=== PATIENT | male | born 1945 | race Caucasian/White ===

== ENCOUNTER → 2017-01-27 | Outpatient (CLI) | payer BC ==
[~2017-01-27] MED LIST: AMIO200T4 PO; ARIP2TAB3 PO; ATOR-26 PO; BUPR300T43 PO; CLON0.5T3 PO; DESV50TA PO; GEMF600T3 PO; LEVO125T5 PO; NTRGSL/4 UT; PROP1TAB PO
== END | disposition home or self-care (01) ==
LOC: C.CPL 08:32
PROVIDERS: ATTEND Student in an Organized Health Care Education/Training Program
DX: Z79.899 Other long term (current) drug therapy (principal)

== ENCOUNTER → 2017-07-11 | Outpatient (CLI) | payer BC ==
[~2017-07-11] MED LIST changes: +LEVO125T4 PO; -LEVO125T5 PO
--- NOTE | 2017-07-11 14:44 | DIAGNOSTIC IMAGING REPORT ---
FULL BODY PET/CT CLINICAL HISTORY: Melanoma. TECHNIQUE: A PET/CT was performed from the skull vertex through the feet following intravenous injection of 10 mCi of F 18 FDG IV. The injection was performed at 11:36 AM on July 11, 2017 and imaging began at 12:28 PM on July 11, 2017. Unenhanced CT was performed for attenuation correction purposes and anatomic localization. COMPARISON STUDY: CT of the abdomen and pelvis October 02, 2016. FINDINGS: Head and neck: No suspicious FDG uptake is identified within the neck. No abnormalities are identified within the brain although sensitivity is diminished on this unenhanced CT. There is no cervical lymphadenopathy. Chest: Postoperative findings within the right upper back are noted with mild FDG uptake which is likely postsurgical. Note is made of a 3.2 x 2.2 cm oval-shaped water attenuation abnormality within the left axilla which has no FDG uptake. This is likely postsurgical. There is a mildly enlarged right inferior axillary lymph node shown on image 121 which measures 1.1 x 0.9 cm. This has moderate FDG uptake with an SUV max of 4.6. There is mild FDG uptake within multiple additional right axillary lymph nodes, including a 1.1 x 0.6 cm right axillary node shown on image 110. A few subcutaneous nodules of the left lateral mid back measure up to 1.6 x 1 cm and are shown image 112. The largest nodule has mild FDG uptake with an SUV max of 3.3. There is no mediastinal or hilar lymphadenopathy. There are no suspicious pulmonary nodules. Heart is mildly enlarged. Abdomen and Pelvis: No suspicious FDG uptake is identified within the abdomen or the pelvis. There is no abdominal or pelvic lymphadenopathy. Musculoskeletal: No suspicious skeletal uptake is identified. Lower extremities: Note is made of mild focal FDG uptake along the skin of the lateral right hindfoot shown on image 191 of 223. There may be minimal corresponding subcutaneous infiltration. No discrete mass is identified. IMPRESSION: 1. Several mildly enlarged FDG avid right axillary lymph nodes which are highly suggestive of lou spread of disease. 2. Several small subcutaneous nodules of the left lateral mid back overlying the inferior scapula which suggest tumor implants given the history of melanoma. 3. 3.2 x 2.2 cm oval-shaped water attenuation abnormality with the left axilla without FDG uptake. This is likely postsurgical but could be correlated with surgical history. 4. Mild FDG uptake overlying the skin of the lateral right midfoot. Possible minimal corresponding subcutaneous soft tissue thickening/infiltration by CT. This is likely benign but could be correlated with physical exam to exclude a skin/subcutaneous abnormality. Electronically signed by: Neil Kirby M.D. 07/11/2017 2:43 PM Dictated Date/Time: 07/11/2017 1:39 PM
== END | disposition home or self-care (01) ==
LOC: C.PET 10:01
PROVIDERS: ATTEND Internal Medicine Hematology
DX: C43.9 Malignant melanoma of skin, unspecified (principal); E87.79 Other fluid overload

== ENCOUNTER → 2017-10-26 | Outpatient (CLI) | payer BC ==
[~2017-10-26] MED LIST changes: -CLON0.5T3 PO; -GEMF600T3 PO; +GEMF600T5 PO; +KLN/5 PO; -LEVO125T4 PO; +LEVO125T5 PO
--- NOTE | 2017-10-26 14:18 | DIAGNOSTIC IMAGING REPORT ---
PET/CT FULL BODY CLINICAL HISTORY: 72 years-old Male presenting with MELANOMA restaging, extensive involvement of axillary lymph nodes recently resected, melanoma of the right upper back. TECHNIQUE: PET/CT was performed from the vertex through the feet following the intravenous administration of 12.925 mCi of F18-FDG. Blood glucose level 97 mg/dL. The injection was performed at 10:17 AM and imaging began at 11:[address] was performed for attenuation correction purposes and anatomic localization. COMPARISON: 07/11/2017.] CT DOSE (mGy.cm): The estimated cumulative dose is 2499.72. FINDINGS: Head and neck: No abnormal photopenia in the brain parenchyma to suggest metastatic disease. No FDG-avid mass in the neck. No FDG avid or enlarged lymph nodes in the neck. Chest: Persistent focal FDG avidity in the 2.1 cm soft tissue nodule located in the subcutaneous fat of the posterior left upper back. This also demonstrates FDG avidity (max SUV 8.3, previously max SUV 3.3). Previously this measured 1.6 cm. No FDG-avid lymphadenopathy or pulmonary opacities. Postsurgical changes in the right axilla with a laminar photopenic fluid collection consistent with a seroma. No residual FDG avid right axillary lymph nodes. The previously noted photopenic fluid collection in the left axilla has resolved. No axillary, supraclavicular, or mediastinal lymphadenopathy. Evaluation of the suleiman limited without intravenous contrast. Atherosclerosis of the aorta. Coronary artery calcification. Normal heart size. Trace pericardial effusion. No pleural effusion. Minimal dependent changes likely atelectasis. Calcified granuloma noted in the left upper lobe. Airways patent. Abdomen and pelvis: Normal physiologic distribution of radiotracer in the gastrointestinal and genitourinary tracts. Several photopenic hypodensities in the kidney likely simple cysts. No FDG avid lymphadenopathy or mass lesion. Surgical frontal bladder wall thickening likely indicates chronic outlet obstruction secondary to prostatomegaly. Diverticulosis of the sigmoid colon. Musculoskeletal: No FDG-avid or destructive osseous lesion. Lower extremities: Focal infiltration and mild FDG avidity in the lateral dorsal aspect of the subcutaneous tissue of the right midfoot at the site of prior FDG avidity (max SUV 3.3). FDG avidity has decreased from prior. Mild FDG avidity in the posterior aspect of the right deltoid is felt to be related to muscle activation. No commencing evidence of a focal lesion at this site. IMPRESSION: 1. Follow-up PET/CT demonstrates interval resection of right axillary lymphadenopathy with residual photopenic seroma in the right axilla. Interval increase in size and FDG avidity of the subcutaneous nodule in the left upper back, which is highly suspicious for a site of metastatic disease. 2. Mild FDG avidity associated with infiltration in the lateral dorsal subcutaneous tissue of the right midfoot. This is overall decreased from prior and is equivocal. Correlate with clinical exam. 3. No other evidence of metastatic disease in the body. Electronically signed by: Robert Murphy M.D. 10/26/2017 2:17 PM Dictated Date/Time: 10/26/2017 1:58 PM
== END | disposition home or self-care (01) ==
LOC: C.PET 09:36
PROVIDERS: ATTEND Internal Medicine Hematology
DX: C43.9 Malignant melanoma of skin, unspecified (principal); C77.3 Secondary and unspecified malignant neoplasm of axilla and upper limb lymph nodes; L76.34 Postprocedural seroma of skin and subcutaneous tissue following other procedure

== ENCOUNTER → 2017-11-02 | Outpatient (CLI) | payer BC ==
[~2017-11-02] MED LIST changes: +GADAVIST IV PRN
--- NOTE | 2017-11-02 15:19 | DIAGNOSTIC IMAGING REPORT ---
MRI OF THE BRAIN WITHOUT AND WITH IV CONTRAST CLINICAL HISTORY: Metastatic melanoma. COMPARISON STUDY: No previous studies for comparison. TECHNIQUE: MRI of the brain was performed from the vertex to the skull base utilizing various T1 and T2 weighted sequences. Following the IV administration of 8.5 mL of Gadavist contrast, additional enhanced images were obtained. FINDINGS: Sagittal T1, axial diffusion, proton density and T2 weighted axial, coronal FLAIR, and pre and post axial T1-weighted images were acquired. These were supplemented with post gadolinium coronal T1 weighted images. No intra or extra-axial mass lesions are visualized. Axial diffusion-weighted images reveal no evidence of acute or subacute infarction. There is no evidence of ventricular dilatation. Proton density T2-weighted and FLAIR images reveal minimal foci of increased T2 signal within the white matter, likely on a small vessel basis. There are no abnormal flow voids. There is a small amount of fluid within the right sphenoid sinus. There are no pathologically enhancing masses. There is a small left parieto-occipital developmental venous anomaly. IMPRESSION: 1. Small amount of fluid within the right sphenoid sinus 2. Incidental small left parietal occipital DVA 3. No acute intracranial findings. No evidence of intracranial metastasis. Electronically signed by: Sarkis Ziegler M.D. 11/02/2017 3:18 PM Dictated Date/Time: 11/02/2017 3:13 PM
== END | disposition home or self-care (01) ==
LOC: C.MRI 13:33
PROVIDERS: ATTEND Internal Medicine Hematology
DX: C43.59 Malignant melanoma of other part of trunk (principal); C77.3 Secondary and unspecified malignant neoplasm of axilla and upper limb lymph nodes

== ENCOUNTER → 2017-11-15 | Outpatient (CLI) | payer BC ==
[~2017-11-15] MED LIST changes: +CLON0.5T3 PO; -GADAVIST IV PRN; +GEMF600T3 PO; -GEMF600T5 PO; -KLN/5 PO
== END | disposition home or self-care (01) ==
LOC: C.PATH 08:25
PROVIDERS: ATTEND Internal Medicine Hematology
DX: C43.59 Malignant melanoma of other part of trunk (principal); C77.3 Secondary and unspecified malignant neoplasm of axilla and upper limb lymph nodes

== ENCOUNTER 2020-08-12 23:36 | Inpatient (IN) ==
[2020-08-13] MEDS ORDERED: SODIUM CHLORIDE 0.9% 1000ML 1,000 ML IV ONE ×3 (00:29→02:05)
--- NOTE | 2020-08-13 00:33 | Emergency Department Note ---
Impression & Plan Sepsis, Acidosis, lactic, Generalized weakness ED Provider Note Name: AUSTIN DOTSON Age: 75 Sex: M Arrives Via: Ambulance Informant: Patient ED Provider: Aleksander Gant MD Chief Complaint: Weakness Impression: Sepsis Lactic Acidosis Generalized Weakness Medical Decision Makin yr old male with extensive medical issues including radiation therapy for squamous tumor of back and mets to the brain (?melanoma?). He arrives for evaluation of generalized weakness to the point where he laid on ground for several hours at home this evening. He does not have shortness of breath, cough, no fevers, though he does feel quite warm on evaluation. With tachy went ahead assuming septic, though unclear etiology. Denies Urinary symptoms (though of note even with fluids no UOP). Mass on back may be infected thus cellulitis. There is no fluctuance appreciated on my examination to suggest underlying abscess at this time. There is no TTP abdomen. He was given IV fluids and labs sent. WBC elevated and thus once cultures obtained broad spectrum abx ordered. With return of Lactate Elevated further IV fluids ordered (30ml/Kg). He was breathing comfortably throughout this without evidence fluid overload. He will be admitted to hospitalist for further management. Prior Medical Record and Triage/Nursing Notes reviewed by Me Additional history obtained from chart Differentials:Infection, dehydration, metabolic abnormality, hypo/hyperglycemia, electrolyte disturbance, anemia, hypoxia, cardiac sources, intracerebral event, toxicologic, neurologic, as well as other pathologies. Vital Signs: reviewed and remarkable for tachy Interventions: saline lock, nss bolus 3 L IV, Zosyn IV, vanco IV Labs:Reviewed and remarkable for elevated wbc, increasing cr, elevated bun, elevated lactate Imaging:X ray results are stated below per my interpretation: Chest: 1 view: No infiltrate, no effusion, normal cardiac border. EKG:Per My Interpretation: Indication Sepsis: Sinus Tach 111 bpm, qtc 462. No Ectopy. No Ischemia. Compared to EKG 01/27/17 HR has increased Cardiac/Tele Monitoring: Cardiac Monitoring: An Order was placed for continuous cardiac monitoring. The monitor shows a rate of 110 with a sinus tach rhythm. Consults:Dr Marley Hernandez Hospitalist Plan: Disposition:Hospitalization. Condition: Fair History of Present Illness:75 yr old male arrives for evaluation of weakness. Patient notes he has been getting brain and back radiation for cancer. Over the last few days worsening weakness. Today so weak that he slid out of his chair on to the floor and couldn't get up. Notes he laid on ground for many hours until EMS arrived. Denies pain anywhere. Denies headache, neck pain, cp, sob, back pain, abdominal pain, nause,a vomiting, fevers, chills, urinary/bowel changes, leg swelling, rashes nor other symptoms. Denies hitting head. No new medications. Exertion makes worse, laying still makes better. ROS: See above HPI for pertinent positives & negatives. A total of 10 systems reviewed and were otherwise negative. Past Medical History:See Below Past Surgical History:See Below Family History:See Below Social History:See Below Home Medications:See Below Allergies:NKDA Vitals:Blood Pressure: 124/79, Pulse 120, RR 22, T 37.2C, O2 96% on RA Physical Exam: GENERAL: Patient is tired and dehydrated appearing and in minimal distress. EYES: No scleral icterus, unremarkable pupils. ENT: Mucous membranes dry, no nasal congestion. NECK: No masses appreciated, nomeningismus, trachea is midline. RESPIRATORY: No dyspnea. Clear to auscultation and equal bilaterally. No wheeze, no rhonchi. CARDIOVASCULAR: Tachy.No murmurs, rubs, gallops appreciated. GASTROINTESTINAL: Abdomen soft, non-tender, no peritonitis.Bowel sounds positive.No masses appreciated. BACK: Large warm red mass to left upper back. No midline tenderness, no CVA tenderness EXTREMITIES: Normal motion all extremities, no cyanosis, mild bilateral leg edema. NEUROLOGIC: Alert and oriented, no acute motor or sensory deficits, no focal weakness, cranial nerves grossly intact. SKIN: Bruises varying ages extremities. pressure abrasions bilateral elbows. No rash, no jaundice, no diaphoresis. PSYCH: Appropriate GCS: 15 ED Course: Times/Reassessments: Patient notes feeling much better post IV fluids and HR improving. Critical Care: I have personally spent 30 minutes of critical care time in the direct management of this patient. Sepsis uncertain etiology with lactic acidosis requiring fluid resus and broad spectrum abx management. This was a life/limb threatening event. This 30 minutes is in excess of all separately billable procedures. Aleksander Gant MD Past Med/Surg History Medical History (Updated 08/13/20 @ 05:41 by Aleksander Gant MD) Afib Depression Gastric ulcer Heart disease History of left heart catheterization (LHC) Hypertension Hypothyroidism Incarcerated right inguinal hernia LVH (left ventricular hypertrophy) MDD (major depressive disorder) Osteoarthritis Surgical History (Updated 06/26/20 @ 13:40 by Sweetie Ferreira, RN) H/O colonoscopy 2014 H/O hernia repair Late History of lithotripsy Late History of lymph node dissection of axilla 06/17/2017 - Left Axilla Non [place] Node Packet - 09/22 nodes positive for malignant melanoma 08/17/2017 - SLN Dissection History of radical excision of skin lesion 04/27/2020 - Right Upper Back - Malignant Melanoma History of surgery 1979 - Benign tumor removed from back of right knee Family History (Updated 06/26/20 @ 13:43 by Sweetie Ferreira, RN) Mother , Passed age 92 natural causes Skin cancer Father , Passed age 68 of H&N Cancer Prostate cancer, Onset Age: 58 Prostatectomy Brother No problems noted. Other Has no children Social History (Updated 06/26/20 @ 13:46 by Sweetie Ferreira, RN) Smoking Status: Former smoker Smoking End Date: 1983; Hx Alcohol Use: No Hx Substance Use: No Preferred Language: Mauritanian Communication Ability: Effective Visual Impairment: Limited Hearing Ability: Normal Production Controller Required: No Beliefs That Will Affect Care: None marital status: Single Current Living Situation: Alone Current Living Situation Comment: Lives in [facility] current occupational status: retired current occupation: retired from [employer] at [employer] How many Children do You have: 0 Feels Safe at Home: Yes Safety Concerns: Feels Safe At This Time Childhood Exposure to Second-Hand Smoke: Yes (Father ) caffeine: No during the past year weight has: remained stable Dental Care, Regularly: Yes Assistive Devices: Glasses and Walker Allergies Allergies Allergy/AdvReac Type Severity Reaction Status Date / Time No Known Allergies Allergy Unknown Verified 08/13/20 01:23 Home Meds Home Medications Medication Instructions Recorded Confirmed nitroglycerin [Nitrostat] 0.4 mg UT UD PRN #0 06/18/08 08/13/20 amiodarone 200 mg PO DAILY #0 10/02/16 08/13/20 bupropion HCl [Wellbutrin XL] 300 mg PO DAILY #0 10/02/16 08/13/20 desvenlafaxine succinate [Pristiq] 100 mg PO QAM #0 10/02/16 08/13/20 levothyroxine 125 mcg PO DAILY #0 10/02/16 08/13/20 propranolol [Inderal] 60 mg PO BID #0 10/02/16 08/13/20 aspirin 325 mg tablet 325 mg PO DAILY 06/26/20 08/13/20 fluticasone propionate 50 2 spray INTRANASAL DAILY PRN 06/26/20 08/13/20 mcg/actuation nasal spray,suspension loperamide 2 mg capsule 2 mg PO BID PRN cap 06/26/20 08/13/20 multivitamin 1 tab PO DAILY 06/26/20 08/13/20 pantoprazole 40 mg tablet,delayed 40 mg PO DAILY 06/26/20 08/13/20 release quetiapine 25 mg tablet 50 mg PO HS tab 06/26/20 08/13/20 tramadol 50 mg tablet 50 mg PO Q6H PRN 06/26/20 08/13/20 vitamin E 200 unit capsule 400 unit PO DAILY cap 06/26/20 08/13/20 dexamethasone 4 mg tablet 4 mg PO BID 08/04/20 08/13/20 clonazepam 1 mg PO HS 08/13/20 08/13/20 diclofenac sodium 4 g TOPICAL QID 08/13/20 08/13/20 Results & Data (ED) Vital Signs Vital Signs - 24 hr 08/12/20 23:36 08/12/20 23:42 08/13/20 00:00 Temperature 37.2 C Temperature Source Oral Pulse Rate 120 H 120 H 114 H Pulse Rate from SpO2 Sensor 119 H 114 H Pulse Rhythm Regular Respiratory Rate 22 19 19 Respiratory Effort / Characteristics Non-Labored Spontaneous Labored Respiratory Depth Normal Blood Pressure 124/79 124/79 102/60 Blood Pressure Mean 94 89 73 Pulse Oximetry 96 96 96 Oxygen Delivery Method Room Air Sepsis Recent Fever Within 48 Hours No Sepsis New/Unexplained Change in Mental Status No Sepsis Action Taken by Nursing Physician Notified 08/13/20 00:30 08/13/20 01:30 08/13/20 02:00 Temperature Temperature Source Pulse Rate 108 H 109 H 102 H Pulse Rate from SpO2 Sensor 101 H Pulse Rhythm Respiratory Rate 17 17 19 Respiratory Effort / Characteristics Respiratory Depth Blood Pressure 115/65 137/79 125/73 Blood Pressure Mean 75 104 91 Pulse Oximetry 95 Oxygen Delivery Method Sepsis Recent Fever Within 48 Hours Sepsis New/Unexplained Change in Mental Status Sepsis Action Taken by Nursing 08/13/20 02:30 08/13/20 03:00 Temperature Temperature Source Pulse Rate 100 H 97 H Pulse Rate from SpO2 Sensor 126 H 97 H Pulse Rhythm Respiratory Rate 18 18 Respiratory Effort / Characteristics Respiratory Depth Blood Pressure 133/66 140/72 Blood Pressure Mean 80 95 Pulse Oximetry 94 97 Oxygen Delivery Method Room Air Room Air Sepsis Recent Fever Within 48 Hours Sepsis New/Unexplained Change in Mental Status Sepsis Action Taken by Nursing Laboratory Data Result diagrams: 08/13/20 00:28 08/13/20 00:28 Lab Results 08/13/20 08/13/20 08/13/20 Range/Units 00:28 00:28 00:28 WBC 20.43 H (4.8-10.8) K/uL RBC 3.94 L (4.7-6.1) M/uL Hgb 12.5 L (14.0-18.0) g/dL Hct 37.9 L (42-52) % MCV 96.2 (80-100) fL MCH 31.7 (25-34) pg MCHC 33.0 (32-36) g/dL RDW Std Deviation 48.0 H (36.4-46.3) fL RDW Coeff of Cal 13.7 (11.5-14.5) % Plt Count 74 L (130-400) K/uL MPV 9.4 (7.4-10.4) fL Immature Gran % (Auto) 2.2 % Neut % (Auto) 84.6 % Lymph % (Auto) 9.3 % Terrell % (Auto) 3.8 % Eos % (Auto) 0.0 % Baso % (Auto) 0.1 % Neut # (Auto) 17.28 H (1.4-6.5) K/uL Lymph # (Auto) 1.90 (1.2-3.4) K/uL Terrell # (Auto) 0.77 H (0.11-0.59) K/uL Eos # (Auto) 0.01 (0-0.5) K/uL Baso # (Auto) 0.02 (0-0.2) K/uL Immature Gran # (Auto) 0.45 H (0.00-0.02) K/uL RBC Morphology Unremarkable PT 11.4 (9.0-12.0) Seconds INR 1.1 (0.9-1.1) APTT < 20.0 L (21.0-31.0) Seconds PTT Ratio 0.7 Sodium 145 (136-145) mmol/L Potassium 3.8 (3.5-5.1) mmol/L Chloride 110 H (98-107) mmol/L Carbon Dioxide 23 (21-32) mmol/L Anion Gap 12.0 H (3-11) BUN 44 H (7-18) mg/dl Creatinine 1.78 H (0.6-1.4) mg/dl Est Cr Clr Drug Dosing 43.6 ml/min Est GFR ( Amer) 42.0 Est GFR (Non-Af Amer) 36.2 BUN/Creatinine Ratio 24.9 H (10-20) Glucose 175 H (70-99) mg/dl Lactate (0.4-2.0) mmol/L Calcium 8.5 (8.5-10.1) mg/dl Magnesium 2.2 (1.8-2.4) mg/dl Total Bilirubin 0.6 (0.2-1) mg/dl Direct Bilirubin 0.1 (0-0.2) mg/dl AST 30 (15-37) U/L ALT 68 (12-78) U/L Alkaline Phosphatase 72 (45-117) U/L Total Creatine Kinase 223 (39-308) U/L Troponin I 0.032 (0-0.045) ng/ml Total Protein 5.5 L (6.4-8.2) gm/dl Albumin 2.6 L (3.4-5.0) gm/dl Lipase 116 (73-393) U/L TSH 0.044 L (0.300-4.500) uIu/ml COVID-19 Eval Order COVID-19 PCR (Negative) 08/13/20 08/13/20 08/13/20 Range/Units 01:28 02:20 02:20 WBC (4.8-10.8) K/uL RBC (4.7-6.1) M/uL Hgb (14.0-18.0) g/dL Hct (42-52) % MCV (80-100) fL MCH (25-34) pg MCHC (32-36) g/dL RDW Std Deviation (36.4-46.3) fL RDW Coeff of Cal (11.5-14.5) % Plt Count (130-400) K/uL MPV (7.4-10.4) fL Immature Gran % (Auto) % Neut % (Auto) % Lymph % (Auto) % Terrell % (Auto) % Eos % (Auto) % Baso % (Auto) % Neut # (Auto) (1.4-6.5) K/uL Lymph # (Auto) (1.2-3.4) K/uL Terrell # (Auto) (0.11-0.59) K/uL Eos # (Auto) (0-0.5) K/uL Baso # (Auto) (0-0.2) K/uL Immature Gran # (Auto) (0.00-0.02) K/uL RBC Morphology PT (9.0-12.0) Seconds INR (0.9-1.1) APTT (21.0-31.0) Seconds PTT Ratio Sodium (136-145) mmol/L Potassium (3.5-5.1) mmol/L Chloride (98-107) mmol/L Carbon Dioxide (21-32) mmol/L Anion Gap (3-11) BUN (7-18) mg/dl Creatinine (0.6-1.4) mg/dl Est Cr Clr Drug Dosing ml/min Est GFR ( Amer) Est GFR (Non-Af Amer) BUN/Creatinine Ratio (10-20) Glucose (70-99) mg/dl Lactate 4.9 H* (0.4-2.0) mmol/L Calcium (8.5-10.1) mg/dl Magnesium (1.8-2.4) mg/dl Total Bilirubin (0.2-1) mg/dl Direct Bilirubin (0-0.2) mg/dl AST (15-37) U/L ALT (12-78) U/L Alkaline Phosphatase (45-117) U/L Total Creatine Kinase (39-308) U/L Troponin I (0-0.045) ng/ml Total Protein (6.4-8.2) gm/dl Albumin (3.4-5.0) gm/dl Lipase (73-393) U/L TSH (0.300-4.500) uIu/ml COVID-19 Eval Order Covid19 Done at [facility] COVID-19 PCR NEGATIVE (Negative) Administered Medications Discontinued Medications Sodium Chloride (Nss 1000ml) 1,000 mls @ 999 mls/hr IV .Q1H1M ONE Stop: 08/13/20 01:29 Last Infusion: 08/13/20 03:14 Dose: 0 mls/hr Documented by: [id number] Admin: 08/13/20 01:13 Dose: 999 mls/hr Documented by: [id number] Piperacillin Sod/Tazobactam Sod (Zosyn) 4.5 gm in 120 mls @ 240 mls/hr IV NOW ONE Stop: 08/13/20 02:07 Last Infusion: 08/13/20 02:55 Dose: 0 mls/hr Documented by: [id number] Admin: 08/13/20 02:25 Dose: 240 mls/hr Documented by: [id number] Vancomycin HCl 2,000 mg/ (Sodium Chloride) 540 mls @ 200 mls/hr IV NOW ONE Stop: 08/13/20 04:19 Last Admin: 08/13/20 02:59 Dose: 200 mls/hr Documented by: [id number] Sodium Chloride (Nss 1000ml) 1,000 mls @ 999 mls/hr IV .Q1H1M ONE Stop: 08/13/20 03:05 Last Infusion: 08/13/20 03:26 Dose: 0 mls/hr Documented by: [id number] Admin: 08/13/20 02:31 Dose: 999 mls/hr Documented by: [id number] Sodium Chloride (Nss 1000ml) 1,000 mls @ 999 mls/hr IV .Q1H1M ONE Stop: 08/13/20 03:05 Last Admin: 08/13/20 04:28 Dose: 999 mls/hr Documented by: [id number] Lactated Ringer's (Lr) 1,000 mls @ 500 mls/hr IV .Q2H ONE Stop: 08/13/20 04:05 Last Admin: 08/13/20 02:43 Dose: Not Given Documented by: [id number] Miscellaneous Information (Piperacill/Tazobac Consult Active) 1 ea N/A UD PRN PRN Reason: Consult Stop: 09/12/20 01:37 Last Admin: 08/13/20 03:19 Dose: 1 ea Documented by: [id number] Miscellaneous Information (Vancomycin Consult Active) 1 ea N/A UD PRN PRN Reason: Consult Stop: 09/12/20 01:37 Last Admin: 08/13/20 03:19 Dose: 1 ea Documented by: [id number] Discharge Plan Visit Data Chief Complaint: Weakness Stated Complaint: WEAKNESS ED Provider: Aleksander Gant Discharge Problem: Sepsis, Acidosis, lactic, Generalized weakness Patient Disposition: Admitted As Inpatient Discharge Instructions Interventions: ED Discharge Assessment Last Done: 08/13/20 04:18 Discharge Problem: Sepsis Qualifiers: Sepsis type: sepsis due to unspecified organism Sepsis acute organ dysfunction status: unspecified Qualified Code(s): A41.9 - Sepsis, unspecified organism
[2020-08-13 00:50] LABS: INR 1.1 (0.9-1.1); Prothrombin Time 11.4 Seconds (9.0-12.0)
[2020-08-13 00:57] LABS: Albumin Level 2.6 gm/dl (3.4-5.0); BUN Creatinine Ratio 24.9 (10-20); Bilirubin Direct 0.1 mg/dl (0-0.2); Calcium 8.5 mg/dl (8.5-10.1); Creatinine Clr Calc Pharmacy 43.6 ml/min; Est GFR (Non-African American) 36.2; Magnesium 2.2 mg/dl (1.8-2.4); Potassium 3.8 mmol/L (3.5-5.1)
[2020-08-13 01:00] LABS: Bilirubin,Total 0.6 mg/dl (0.2-1); Total Protein 5.5 gm/dl (6.4-8.2); Troponin I 0.032 ng/ml (0-0.045)
[2020-08-13 01:13] LABS: Partial Thromboplastin Ratio 0.7; Partial Thromboplastin Time < 20.0 Seconds (21.0-31.0)
[2020-08-13 01:22] LABS: Basophils # (auto) 0.02 K/uL (0-0.2); Basophils % (auto) 0.1 %; Eosinophils # (auto) 0.01 K/uL (0-0.5); Hematocrit (blood only) 37.9 % (42-52); Hemoglobin 12.5 g/dL (14.0-18.0); Immature Granulocytes # (auto) 0.45 K/uL (0.00-0.02); Immature Granulocytes % (auto) 2.2 %; Lymphocytes % (auto) 9.3 %; Mean Corpuscular Hemoglobin 31.7 pg (25-34); Mean Corpuscular Volume 96.2 fL (80-100); Mean Platelet Volume 9.4 fL (7.4-10.4); Monocytes # (auto) 0.77 K/uL (0.11-0.59); Monocytes % (auto) 3.8 %; Neutrophils # (auto) 17.28 K/uL (1.4-6.5); Neutrophils % (auto) 84.6 %; Platelet Count 74 K/uL (130-400); RBC Morphology Unremarkable; RDW Coefficient of Variation 13.7 % (11.5-14.5); Red Blood Count 3.94 M/uL (4.7-6.1); White Blood Count 20.43 K/uL (4.8-10.8)
[2020-08-13] MEDS ORDERED: PIPERACILL/TAZOBAC CONSULT ACTIVE PRN (01:38)
[2020-08-13] MEDS ORDERED: PIPERACILLIN/TAZOBACTAM 4.5 GM/120 ML BAG IV ONE (01:38)
[2020-08-13] MEDS ORDERED: VANCOMYCIN CONSULT ACTIVE PRN (01:38)
[2020-08-13] MEDS ORDERED: VANCOMYCIN HCL 2,000 MG in SODIUM CHLORIDE 0.9% 500 ML IV ONE (01:38)
[2020-08-13] MEDS ORDERED: LACTATED RINGER'S 1,000 ML IV ONE ×3 (02:06→06:44)
[2020-08-13 02:44] LABS: Thyroid Stimulating Hormone 0.044 uIu/ml (0.300-4.500)
--- NOTE | 2020-08-13 03:52 | History & Physical Report ---
Date of Service August 13, 2020 Assessment & Plan (1) Sepsis: Severe sepsis SIRS plus lactic acid elevation plus ARF Immunocompromised patient, hx brain mets status post radiation ongoing steroid therapy Rule out UTI as source recurrent metastatic melanoma status post surgery Patient not interested in treatment options as per recent conversation with [facility] oncologist. May consider hospice as per documentation. New onset anemia, thrombocytopenia PAF, patient NSR nonobstructive CAD as per records hypertension, slight elevated hypothyroidism, TSH noted to be low Steroid-induced hyperglycemia rule out DM RLE swelling rule out DVT mood disorder, at baseline past tobacco abuse Medical telemetry Cultures, Daptomycin, Cefepime for now for sepsis unknown source IVF, follow lactic acid Check UA (patient refusing straight catheterization to obtain specimen) Hold aspirin until stool FOBT results known given new onset anemia (Patient refusing blood product transfusion for now.) LE venous Dopplers rule out DVT Check other TFTs Check hemoglobin A1c DVT prophylaxis. SCDs Re: Thrombocytopenia DNR Text document was generated using [employer] voice recognition software. It may contain grammatical or spelling errors. Kindly contact undersigned for clarification of any documentation item in question. History of Present Illness Chief Complaint: Weakness, fever, chills Primary Care Provider: Robert Palm MD History obtained from patient and records. Medical history significant for recurrent metastatic melanoma status post surgery, brain mets status post radiation ongoing steroid therap, PAF, nonobstructive CAD as per records, hypertension, hypothyroidism, mood disorder, past tobacco abuse. Worsening weakness the last few days with fever and chills. Right leg more swollen than usual. No chest pain, no S OB, no unusual headache symptoms. Patient denies abdominal pain, diarrhea, dysuria symptoms. Patient was so weak at home that he slid out of his chair therefore he could not get up. At the ER, patient given Vancomycin and Zosyn for sepsis. Medical History as above Surgical History : Lymph node biopsy, urologic procedures, leg bone lesion removal, hernia repair, skin cancer surgery Family History : BPH Personal/Social history : Past tobacco abuse, no EtOH intake, retired [employer] employee Allergies Allergy/AdvReac Type Severity Reaction Status Date / Time No Known Allergies Allergy Unknown Verified 08/13/20 01:23 Home Medications Home Medications Medication Instructions Recorded Confirmed Type nitroglycerin [Nitrostat] 0.4 mg OH UD PRN #0 06/18/08 08/13/20 History amiodarone 200 mg PO DAILY #0 10/02/16 08/13/20 History bupropion HCl [Wellbutrin XL] 300 mg PO DAILY #0 10/02/16 08/13/20 History desvenlafaxine succinate [Pristiq] 100 mg PO QAM #0 10/02/16 08/13/20 History levothyroxine 125 mcg PO DAILY #0 10/02/16 08/13/20 History propranolol [Inderal] 60 mg PO BID #0 10/02/16 08/13/20 History aspirin 325 mg tablet 325 mg PO DAILY 06/26/20 08/13/20 History fluticasone propionate 50 2 spray INTRANASAL DAILY PRN 06/26/20 08/13/20 History mcg/actuation nasal spray,suspension loperamide 2 mg capsule 2 mg PO BID PRN cap 06/26/20 08/13/20 History multivitamin 1 tab PO DAILY 06/26/20 08/13/20 History pantoprazole 40 mg tablet,delayed 40 mg PO DAILY 06/26/20 08/13/20 History release quetiapine 25 mg tablet 50 mg PO HS tab 06/26/20 08/13/20 History tramadol 50 mg tablet 50 mg PO Q6H PRN 06/26/20 08/13/20 History vitamin E 200 unit capsule 400 unit PO DAILY cap 06/26/20 08/13/20 History dexamethasone 4 mg tablet 4 mg PO BID 08/04/20 08/13/20 History clonazepam 1 mg PO HS 08/13/20 08/13/20 History diclofenac sodium 4 g TOPICAL QID 08/13/20 08/13/20 History Past Med/Surg History Medical History (Updated 08/13/20 @ 09:18 by Jaya Hughes MD) Afib Depression Gastric ulcer Heart disease History of left heart catheterization (LHC) Hypertension Hypothyroidism Incarcerated right inguinal hernia LVH (left ventricular hypertrophy) MDD (major depressive disorder) Osteoarthritis Surgical History (Updated 06/26/20 @ 13:40 by Sweetie Ferreira RN) H/O colonoscopy 2014 H/O hernia repair Late History of lithotripsy Late History of lymph node dissection of axilla 06/17/2017 - Left Axilla Non [place] Node Packet - 09/22 nodes positive for malignant melanoma 08/17/2017 - SLN Dissection History of radical excision of skin lesion 04/27/2020 - Right Upper Back - Malignant Melanoma History of surgery 1979 - Benign tumor removed from back of right knee Family History (Updated 06/26/20 @ 13:43 by Sweetie Ferreira RN) Mother , Passed age 92 natural causes Skin cancer Father , Passed age 68 of H&N Cancer Prostate cancer, Onset Age: 58 Prostatectomy Brother No problems noted. Other Has no children Social History (Updated 06/26/20 @ 13:46 by Sweetie Ferreira RN) Smoking Status: Former smoker Smoking End Date: 1983; Hx Alcohol Use: No Hx Substance Use: No Preferred Language: Mauritanian Communication Ability: Effective Visual Impairment: Limited Hearing Ability: Normal [employer] Required: No Beliefs That Will Affect Care: None marital status: Single Current Living Situation: Alone Current Living Situation Comment: Lives in shelter at [facility] current occupational status: retired current occupation: retired from [employer] at [employer] How many Children do You have: 0 Feels Safe at Home: Yes Safety Concerns: Feels Safe At This Time Childhood Exposure to Second-Hand Smoke: Yes (Father ) caffeine: No during the past year weight has: remained stable Dental Care, Regularly: Yes Assistive Devices: Glasses and Walker Review of Systems Review of Systems: As per HPI, all 10 systems reviewed, all other ROS negative Physical Exam Physical Exam: GENERAL: uncomfortable, obese, no respiratory distress SKIN: Pallor, warm HEENT: Alopecia, pale palpebral conjunctivae, no ptosis, dry buccal mucosa NECK : Supple, short neck, no tenderness CHEST : Decreased breath sounds, no tenderness HEART : Tachycardic, no obvious murmurs ABDOMEN: Some distention, nontender EXTREMITIES : RLE swelling with minimal tenderness, no other conspicuous deformities noted NEUROLOGIC : Coherent, no facial asymmetry, MMTs BUE 4/5, BLE 2/5 Results & Data Results & Data ([facility]) Vital Signs (Past 12 Hours) Vital Signs Temp Pulse Resp BP Pulse Ox 08/13/20 03:00 97 H 18 140/72 97 08/13/20 02:30 100 H 18 133/66 94 08/13/20 02:00 102 H 19 125/73 95 08/13/20 01:30 109 H 17 137/79 08/13/20 00:30 108 H 17 115/65 08/13/20 00:00 114 H 19 102/60 96 08/12/20 23:42 120 H 19 124/79 96 08/12/20 23:36 37.2 C 120 H 22 124/79 96 Laboratory Results Laboratory Results WBC 20.43 K/uL (4.8-10.8) H 08/13/20 00:28 RBC 3.94 M/uL (4.7-6.1) L 08/13/20 00:28 Hgb 12.5 g/dL (14.0-18.0) L 08/13/20 00:28 Hct 37.9 % (42-52) L 08/13/20 00:28 MCV 96.2 fL (80-100) 08/13/20 00:28 MCH 31.7 pg (25-34) 08/13/20 00: MCHC 33.0 g/dL (32-36) 08/13/20 00: RDW Std Deviation 48.0 fL (36.4-46.3) H 08/13/20 00: RDW Coeff of Cal 13.7 % (11.5-14.5) 08/13/20 00: Plt Count 74 K/uL (130-400) L 08/13/20 00:28 MPV 9.4 fL (7.4-10.4) 08/13/20 00:28 Immature Gran % (Auto) 2.2 % 08/13/20 00:28 Neut % (Auto) 84.6 % 08/13/20 00:28 Lymph % (Auto) 9.3 % 08/13/20 00:28 [place] % (Auto) 3.8 % 08/13/20 00:28 Eos % (Auto) 0.0 % 08/13/20 00:28 Baso % (Auto) 0.1 % 08/13/20 00:28 Neut # (Auto) 17.28 K/uL (1.4-6.5) H 08/13/20 00:28 Lymph # (Auto) 1.90 K/uL (1.2-3.4) 08/13/20 00:28 [place] # (Auto) 0.77 K/uL (0.11-0.59) H 08/13/20 00:28 Eos # (Auto) 0.01 K/uL (0-0.5) 08/13/20 00: Baso # (Auto) 0.02 K/uL (0-0.2) 08/13/20: Immature Gran # (Auto) 0.45 K/uL (0.00-0.02) H 08/13/20: RBC Morphology Unremarkable 08/13/20: PT 11.4 Seconds (9.0-12.0) 08/13/20: INR 1.1 (0.9-1.1) 08/13/20: APTT < 20.0 Seconds (21.0-31.0) L 08/13/20 PTT Ratio 0.7 08/13/20: Sodium 145 mmol/L (136-145) 08/13/20: Potassium 3.8 mmol/L (3.5-5.1) 08/13/20: Chloride 110 mmol/L (98-107) H 08/13/20: Carbon Dioxide 23 mmol/L (21-32) 08/13/20: Anion Gap 12.0 (3-11) H 08/13/20: BUN 44 mg/dl (7-18) H 08/13/20: Creatinine 1.78 mg/dl (0.6-1.4) H 08/13/20: Est Cr Clr Drug Dosing 43.6 ml/min 08/13/20: Est GFR ( Amer) 42.0 08/13/20: Est GFR (Non-Af Amer) 36.2 08/13/20: BUN/Creatinine Ratio 24.9 (10-20) H 08/13/20: Glucose 175 mg/dl (70-99) H 08/13/20: Lactate 4.9 mmol/L (0.4-2.0) H* 08/13/20 01: Calcium 8.5 mg/dl (8.5-10.1) 08/13/20: Magnesium 2.2 mg/dl (1.8-2.4) 08/13/20: Total Bilirubin 0.6 mg/dl (0.2-1) 08/13/20 00:28 Direct Bilirubin 0.1 mg/dl (0-0.2) 08/13/20 00:28 AST 30 U/L (15-37) 08/13/20 00:28 ALT 68 U/L (12-78) 08/13/20 00:28 Alkaline Phosphatase 72 U/L (45-117) 08/13/20 00:28 Total Creatine Kinase 223 U/L (39-308) 08/13/20 00:28 Troponin I 0.032 ng/ml (0-0.045) 08/13/20 00:28 Total Protein 5.5 gm/dl (6.4-8.2) L 08/13/20:28 Albumin 2.6 gm/dl (3.4-5.0) L 08/13/20 00: Lipase 116 U/L (73-393) 08/13/20 00:28 TSH 0.044 uIu/ml (0.300-4.500) L 08/13/20 00:28 COVID-19 Eval Order Covid19 Done [address] [facility] 08/13/20 02:20 COVID-19 PCR NEGATIVE (Negative) 08/13/20 02:[address] head initial read: Abnormal ringlike lesion left frontotemporal region measuring 17 x 19 mm surrounded by mild vasogenic edema. Similar to prior MRI May 2020. Lesion not significant change in size. No midline shift. No evidence of hemorrhage. Chest x-ray as per my interpretation cardiomegaly EKG as per my interpretation : Rate 110, sinus tachycardia, LAD, LAD, LAFB, LVH, PVCs Code Status & VTE Plan VTE Prophylaxis Plan VTE Prophylaxis will be ordered: Yes (1) Sepsis Sepsis acute organ dysfunction status: unspecified Sepsis type: sepsis due to unspecified organism Qualified Code(s): A41.9 - Sepsis, unspecified organism
[2020-08-13] MEDS ORDERED: PROMETHAZINE HCL 12.5 MG in SODIUM CHLORIDE 0.9% 50 ML IV PRN (05:22)
[2020-08-13] MEDS ORDERED: FLUTICASONE PROPIONATE NA SPR 16 GM BTL PRN (05:22)
[2020-08-13] MEDS ORDERED: ACETAMINOPHEN 325 MG TAB PO PRN ×2 (05:22→08:51)
[2020-08-13] MEDS ORDERED: AUGMENTIN~PHARMACY CONSULT IN PROGRESS PRN (05:26)
[2020-08-13] MEDS ORDERED: CEFEPIME CONSULT ACTIVE PRN (05:31)
[2020-08-13] MEDS ORDERED: LACTATED RINGER'S 1,000 ML IV SCH (05:45)
[2020-08-13 05:55] LABS: Hematocrit (blood only) 33.2 % (42-52); Hemoglobin 10.6 g/dL (14.0-18.0); Mean Corpuscular Hemoglobin 30.9 pg (25-34); Mean Corpuscular Hgb Conc 31.9 g/dL (32-36); Mean Corpuscular Volume 96.8 fL (80-100); RDW Coefficient of Variation 14.1 % (11.5-14.5); RDW Standard Deviation 48.7 fL (36.4-46.3); Red Blood Count 3.43 M/uL (4.7-6.1); White Blood Count 15.63 K/uL (4.8-10.8)
[2020-08-13 06:27] LABS: Mean Platelet Volume 8.8 fL (7.4-10.4); Platelet Count 62 K/uL (130-400)
[2020-08-13 06:28] LABS: Basophils # (auto) 0.01 K/uL (0-0.2); Basophils % (auto) 0.1 %; Eosinophils # (auto) 0.01 K/uL (0-0.5); Eosinophils % (auto) 0.1 %; Immature Granulocytes % (auto) 1.9 %; Lymphocytes # (auto) 1.41 K/uL (1.2-3.4); Monocytes % (auto) 5.1 %; Neutrophils % (auto) 83.8 %; RBC Morphology Unremarkable
[2020-08-13] MEDS: CEFEPIME 2,000 MG in SYRINGE 0 ML IV SCH ×2 (06:28→18:06)
[2020-08-13 06:30] LABS: BUN Creatinine Ratio 31.5 (10-20); Calcium 7.4 mg/dl (8.5-10.1); Creatinine Clr Calc Pharmacy 63.7 ml/min; Est GFR (African American) 70.5; Est GFR (Non-African American) 60.8
[2020-08-13] MEDS ORDERED: LEVOTHYROXINE SODIUM 125 MCG TABLET PO SCH (06:30)
[2020-08-13] MEDS: DAPTOmycin 475 MG in SYRINGE 0 ML IV SCH (06:32)
--- NOTE | 2020-08-13 07:08 | Ultrasound Report ---
ULTRASOUND RIGHT LOWER EXTREMITY VENOUS CLINICAL HISTORY: Right leg swelling. COMPARISON STUDY: No priors. TECHNIQUE: Real-time, grayscale, and color Doppler sonography of the deep veins of the right lower ex tremity was performed from the inguinal crease to the calf. Compression and augmentation were utilize d. FINDINGS: There is nonocclusive deep venous thrombosis identified in the right lower extremity extend ing from the distal superficial femoral vein into both paired popliteal veins and into the calf vesse ls. This involves the peroneal, anterior tibial, and posterior tibial veins. The common femoral vein as well as the proximal and mid portions of the superficial femoral vein are patent and normally comp ressible. The greater saphenous vein and the profunda femoris vein at the junction with the common fe moral vein are clear. IMPRESSION: Nonocclusive deep venous thrombosis is seen in the right lower extremity extending from t he distal superficial femoral vein to the calf. ACT 112: Negative or not required by law. Electronically signed by: Zhang Garcia M.D. 08/13/2020 7:07 AM
--- NOTE | 2020-08-13 07:30 | CT Scan Report ---
CT SCAN OF THE BRAIN WITHOUT IV CONTRAST CLINICAL HISTORY: Generalized weakness. Known metastatic melanoma. COMPARISON STUDY: MRI of the brain dated 06/24/2020. PET/CT dated 06/23/2020. Radiation treatment plan ed[place] CT dated 06/27/2020. TECHNIQUE: Unenhanced axial CT scan of the brain is performed from the vertex to the skull base. A do se lowering technique was utilized adhering to the principles of ALARA. CT DOSE: 691.05 mGy.cm FINDINGS: Brain parenchyma: There are age-related involutional changes noting mild subcortical and periventric ular microangiopathic change. There is a 2.0 cm lesion with surrounding edema identified in the poste rior left frontotemporal region on image #20. This was also seen on the 06/27/[address] and demonstrates peripheral hyperdensity. This has not significantly changed from that t gabby. No midline shift is identified. No new lesion is seen. No acute hemorrhage is identified. There is no evidence of acute territorial ischemia by CT criteria. No extra-axial fluid collection is seen. Ventricles, sulci, cisterns: Prominent secondary to involutional change. Intracranial vasculature: There is atherosclerotic calcification of the cavernous carotid arteries. Calvarium: Unremarkable. Sinuses and mastoids: Trace mucosal thickening is noted in the ethmoid sinuses. The remaining paranas al sinuses are clear. The mastoid air cells are well pneumatized. Orbits: The bony orbits are grossly intact. IMPRESSION: 1. Again seen is a 2 cm peripherally hyperdense and possibly hemorrhagic lesion in the left frontotem poral region with surrounding edema. This has not significantly changed in appearance from the [address] and is consistent with known metastatic disease. 2. No new lesion is identified. 3. There is no evidence of acute hemorrhage. There is no midline shift or evidence of acute territori al ischemia by CT criteria. ACT 112: Negative or not required by law. Electronically signed by: Zhang Garcia M.D. 08/13/2020 7:29 AM
[2020-08-13 07:42] LABS: Appearance Urine Cloudy (Clear); Bacteria Urine Automated Negative (Negative); Bilirubin Urine Negative (Negative); Blood Urine 1+ (Negative); Color Urine Yellow; Epithelial Cell Urine Auto 20-30 /lpf (0-5); Glucose Urine UA Negative (Negative); Ketones Urine Negative (Negative); Leukocyte Esterase Urine Negative (Negative); Nitrite Urine Negative (Negative); Protein Urine Negative (Negative); Specific Gravity Urine 1.022 (1.000-1.030); Urobilinogen Urine Negative (Negative)
[2020-08-13 07:59] LABS: Estimated Average Glucose 148 mg/dl; Hemoglobin A1C 6.8 % (4.5-5.6)
--- NOTE | 2020-08-13 08:05 | XRay Report ---
SINGLE VIEW CHEST CLINICAL HISTORY: Generalized weakness. FINDINGS: An AP, portable, upright chest radiograph is compared to study dated 09/24/2010 and correla jose with PET/CT dated 06/23/2020. The examination is degraded by portable technique and patient rotati on. The heart is mildly enlarged noting atherosclerotic calcification of the thoracic aorta. The pu lmonary vasculature is noncongested. Chronic interstitial thickening is similar to previous. There is bibasilar scarring/atelectasis. No airspace consolidation or large pleural effusion is identified. N o pneumothorax is seen. The skeletal structures are osteopenic. The bony thorax is grossly intact. Cote rgical clips are noted in the right axilla. IMPRESSION: Cardiomegaly with no acute cardiopulmonary abnormality. ACT 112: Negative or not required by law. Electronically signed by: Zhang Garcia M.D. 08/13/2020 8:03 AM
[2020-08-13 08:06] LABS: Uric Acid Crystals Urine Present (None Prsent)
--- NOTE | 2020-08-13 08:28 | Hospitalist Progress Note ---
Date of Service August 13, 2020 Assessment & Plan (1) Metastatic melanoma: -as per Dr. Rodriguez oncology notes on 06/25/2020 visit: "75-year-old male with history of melanoma was diagnosed in 03/2017 when he was found to have mass on the right upper back. He underwent resection. Subsequently he underwent a right axillary lymph node dissection and 09/22 lymph nodes were positive for metastatic disease. Lymph node from the left axillary area were negative. He had a stage T4b N3 disease and B Jorge was positive. Patient was seen by Dr. Feldman at that time and options of treatment were discussed but patient refused. Now he present with new mass on the left upper back shoulder for last few months which is increasing in size. Patient is also complaining of headache for last few weeks. Physical examination is unremarkable except that there is a 7 cm mass in the left upper back. He had follow-up PET scan done which shows lesion in the left shoulder and also there is a lesion in the left frontotemporal area. MRI was also done which confirmed the finding." -Dr. Rodriguez comments in 06/25/2020 that patient to be on Decadron 4 mg twice a day for brain edema and radiation to brain, and possibility of immunotherapy in the future -hospitalist attempting to contact patient's oncologist Dr. Rodriguez in regards to patient's brain cancer, thrombocytopenia, and new ultrasound finding on this admission of "Nonocclusive deep venous thrombosis is seen in the right lower extremity extending from the distal superficial femoral vein to the calf." -Code Status is DNR/DNI, patient declines any blood transfusion, he allows for medications including antibiotics -consult palliative care, patient lives alone at home and his next of kin is brother Jamil Chirinos [phone] - consult case management (2) Brain cancer: -Dr. Rodriguez comments in 06/25/2020 that patient to be on Decadron 4 mg twice a day for brain edema and radiation to brain-Dr. Rodriguez comments in 06/25/2020 that patient to be on Decadron 4 mg twice a day for brain edema and radiation to brain -patient reports he completed treatment for radiation to the brain with lasts session on Tuesday08/08/2020 (3) Deep vein thrombosis (DVT) of right lower extremity: -patient reports that since brain radiation treatment, he has been less active -he reports that he noted more right leg swelling prior to admission -ultrasound finding on this admission of "Nonocclusive deep venous thrombosis is seen in the right lower extremity extending from the distal superficial femoral vein to the calf." (4) Thrombocytopenia: -outpatient 06/16/20 labs of Hgb 14.7 and platelets 267K -however patient has low platelets on admission of 74K to 62K -he was discussed option of being on blood thinner but he also declined wanting any blood transfusion -will discuss with patient's oncologist Dr. Rodriguez on systemic anticoagulation, will temporarily give heparin 5000 units subcutaneous q8 hours for now while awaiting oncology discussion and will avoid home dose aspirin 325 mg and diclofenac (5) Anemia: -admission Hgb 12.5 and followup Hgb 10.6 -monitor the blood counts, patient declines blood transfusion consent -continue home dose pantoprazole (6) Leukocytosis: Sepsis -admission WBC of 15K, possibly from recent steroids for brain cancer versus assumed infection -as per ED and admitting hospitalist notes that patient's elevated WBC, tachycardia on ED presentation, and lactic acid level of 4.9, with acute kidney injury may reflect sepsis and started on broad spectrum antibiotics in context of cancer and being on steroids -lactic acid resolved with IV fluids as the repeat was 1.5, currently on IV cefepime and IV daptomycin, continue antibiotics and follow blood cultures (7) NIRU (acute kidney injury): -admission creatinine of 1.78 and after IV fluids is 1.16 (8) Abnormal thyroid function test: -outpatient records 12/28/2018 showed normal TSH of 0.89 -admission TSH very low of 0.044, and low total T3 of 0.47, but normal free T4 of 1.21 -these abnormal thyroid labs may reflect overall illness or too much levothyroxine at home, cut back on home dose levothyroxine from 125 mcg daily to 75 mcg daily (9) Elevated hemoglobin A1c: -admission HbA1c of 6.8 -no prior documented history of diabetes mellitus -since patient recently on steroids, will give sliding scale insulin while inp atient based on blood sugars (10) PAF (paroxysmal atrial fibrillation): Coronary Artery Disease -currently in sinus rhythm -will continue home dose amiodarone -aspirin on hold for now because of thrombocytopenia (11) Depression: -continue home dose buproprion, quetiapine (12) Tremor: -continue home dose propanolol Admission and Anticipated Discharge Date Admission Date: August 13, 2020 Subjective Patient seen and examined at bedside. Awake and alert. not in distress. patient cannot pull himself up to sit upright. no nausea. no headache. no dizziness. no abdomen pain. no chest pain. no shortness of breath, no vomiting. discussed with him patient's previous health issues and new imaging findings of the DVT of right leg. patient declines blood transfusion if needed. he is agreeable for hospitalist to contact his oncology/hematology clinic Dr. Rodriguez Review of Systems Review of Systems: All systems reviewed & are unremarkable except as noted in Subjective Physical Exam Constitutional: cooperative Eyes: PERRL, conjunctivae normal, anicteric sclerae EOM intact bilaterally ENMT: external ear and nose normal, oropharynx normal Neck: normal visual inspection Respiratory: normal respiratory effort, lungs clear to auscultation Cardiovascular: Rate/Rhythm: regular rate Gastrointestinal (Abdomen): normal bowel sounds, soft, nontender, no hepatosplenomegaly Musculoskeletal: Head/Neck/Chest: normocephalic pitting bilateral lower extremity edema with more swelling of left leg Neurologic: PERRL, EOMI, accommodation nl, no face palsy, no dysarthria Psychiatric: A+Ox3, euthymic affect Results & Data Results & Data ([facility]) Vital Signs (Past 12 Hours) Vital Signs Temp Pulse Pulse Resp BP BP Pulse Ox 08/13/20 07:42 36.8 C 93 H 16 118/65 95 08/13/20 05:29 36.8 C 92 H 18 152/80 H 96 08/13/20 04:18 90 16 142/66 H 95 08/13/20 03:00 97 H 18 140/72 97 08/13/20 02:30 100 H 18 133/66 94 08/13/20 02:00 102 H 19 125/73 95 08/13/20 01:30 109 H 17 137/79 08/13/20 00:30 108 H 17 115/65 08/13/20 00:00 114 H 19 102/60 96 08/12/20 23:42 120 H 19 124/79 96 08/12/20 23:36 37.2 C 120 H 22 124/79 96
[2020-08-13] MEDS ORDERED: GLUCAGON FOR INJ 1 MG VIAL SQ PRN (08:59)
[2020-08-13] MEDS ORDERED: GLUCOSE 40% GEL 15 GM TUBE PO PRN (08:59)
[2020-08-13] MEDS ORDERED: CARBOHYDRATES FOR HYPOGLYCEMIA PO PRN (08:59)
[2020-08-13] MEDS ORDERED: DEXTROSE 50% 50 ML SYRINGE IV PRN (08:59)
[2020-08-13] MEDS ORDERED: GLUCOSE 10 TABS/TUBE PO PRN (08:59)
[2020-08-13] MEDS: PANTOprazole 40 MG TAB PO SCH (09:10)
[2020-08-13] MEDS: dexAMETHasone 4 MG TAB PO SCH ×2 (09:10→20:47)
[2020-08-13] MEDS: MULTIVITAMIN TAB PO SCH (09:10)
[2020-08-13] MEDS: AMIODARONE 200 MG TAB PO SCH (09:10)
[2020-08-13] MEDS: PROPRANOLOL HCL 20 MG TAB PO SCH ×2 (09:10→20:46)
[2020-08-13] MEDS: buPROPion XL 300 MG TABCR PO SCH (09:10)
[2020-08-13] MEDS: clonazePAM 1 MG TAB PO SCH ×2 (09:11→20:50)
[2020-08-13] MEDS: INSULIN ASPART 100 UNITS/ML 3 ML PEN SC SCH ×3 (12:03→20:40)
--- NOTE | 2020-08-13 13:14 | Electrocardiogram Report ---
Test Reason : Blood Pressure : / mmHG Vent. Rate : 111 BPM Atrial Rate : 111 BPM P-R Int : 172 ms QRS Dur : 088 ms QT Int : 340 ms P-R-T Axes : 037 -11 042 degrees QTc Int : 462 ms Poor data quality, interpretation may be adversely affected Sinus tachycardia with Fusion complexes Otherwise normal ECG When compared with ECG of 27-JAN-2017 08:45, Fusion complexes are now Present Vent. rate has increased BY 46 BPM Confirmed by Linwood Cisneros ([id number]) on 08/13/2020 1:13:40 PM Referred By: REFERRED SELF Confirmed By:Linwood Cisneros
[2020-08-13] MEDS: HEPARIN SOD 5,000 UNIT/0.5 ML VIAL SQ SCH ×2 (14:29→20:47)
[2020-08-13] MEDS: QUEtiapine FUMARATE 25 MG TABLET PO SCH (20:46)
[2020-08-14] MEDS: LEVOTHYROXINE SODIUM 75 MCG TABLET PO SCH (05:27)
[2020-08-14] MEDS: HEPARIN SOD 5,000 UNIT/0.5 ML VIAL SQ SCH ×3 (05:27→20:46)
[2020-08-14] MEDS: CEFEPIME 2,000 MG in SYRINGE 0 ML IV SCH ×2 (05:27→17:44)
[2020-08-14] MEDS: DAPTOmycin 475 MG in SYRINGE 0 ML IV SCH (05:48)
[2020-08-14 07:56] LABS: Hematocrit (blood only) 32.4 % (42-52); Hemoglobin 10.8 g/dL (14.0-18.0); Mean Corpuscular Hemoglobin 31.9 pg (25-34); Mean Corpuscular Hgb Conc 33.3 g/dL (32-36); Mean Corpuscular Volume 95.6 fL (80-100); RDW Coefficient of Variation 13.9 % (11.5-14.5); RDW Standard Deviation 47.9 fL (36.4-46.3); Red Blood Count 3.39 M/uL (4.7-6.1); White Blood Count 11.44 K/uL (4.8-10.8)
[2020-08-14 08:00] LABS: Mean Platelet Volume 9.3 fL (7.4-10.4); Platelet Count 52 K/uL (130-400)
[2020-08-14] MEDS: AMIODARONE 200 MG TAB PO SCH (08:17)
[2020-08-14] MEDS: dexAMETHasone 4 MG TAB PO SCH ×2 (08:17→20:46)
[2020-08-14] MEDS: buPROPion XL 300 MG TABCR PO SCH (08:17)
[2020-08-14] MEDS: PANTOprazole 40 MG TAB PO SCH (08:17)
[2020-08-14] MEDS: PROPRANOLOL HCL 20 MG TAB PO SCH ×2 (08:17→20:46)
[2020-08-14] MEDS: MULTIVITAMIN TAB PO SCH (08:17)
[2020-08-14 08:20] LABS: Basophils # (auto) 0.01 K/uL (0-0.2); Basophils % (auto) 0.1 %; Immature Granulocytes # (auto) 0.21 K/uL (0.00-0.02); Immature Granulocytes % (auto) 1.8 %; Lymphocytes # (auto) 0.81 K/uL (1.2-3.4); Lymphocytes % (auto) 7.1 %; Monocytes # (auto) 0.34 K/uL (0.11-0.59); Neutrophils # (auto) 10.07 K/uL (1.4-6.5)
[2020-08-14] MEDS: INSULIN ASPART 100 UNITS/ML 3 ML PEN SC SCH ×2 (08:20→11:48)
[2020-08-14 08:25] LABS: Albumin Level 2.2 gm/dl (3.4-5.0); BUN Creatinine Ratio 33.9 (10-20); Calcium 8.4 mg/dl (8.5-10.1); Creatinine Clr Calc Pharmacy 93.6 ml/min; Est GFR (African American) 101.1; Est GFR (Non-African American) 87.2
[2020-08-14 08:26] LABS: Albumin Globulin Ratio 0.7 (0.9-2); Bilirubin,Total 0.9 mg/dl (0.2-1); Globulin 2.9 gm/dl (2.5-4.0); Total Protein 5.1 gm/dl (6.4-8.2)
--- NOTE | 2020-08-14 11:02 | Palliative Care Consultation ---
Date of Consultation August 14, 2020 Assessment & Plan (1) Palliative care encounter: This is a 75 year old male who presented to the [facility] from his independent residence with worsening weakness as he slid out of his chair .The patient was found to have an infection, WBC was 20.8 on admission. Additional PMH includes metastatic melanoma with brain metastasis s/p radiation and ongoing steroids. This gentleman is a patient of Dr. Keys. The patient also does have pAF, non-obstructive CAD, HTN, hypothyroidism, and mood disorder. On admission, the patient was identified to have a RLE DVT. Additional source of infection is unclear as blood cultures, UA and chest X-ray are clear. The patient does have multiple skin tear sites on his b/l UE, but does not appear to have warmth or tenderness of his RLE. The patient was on Hospice two years ago(unsure which agency), and was discharged due to prolongation of prognosis. Physical Therapy has evaluated the patient while here in the hospital and does support additional rehab at a SNF. Palliative Care was consulted to discuss goals of care. -I met with the patient in room 252. Patient sitting upright in his bed, watching tv in no apparent distress. -Pt AAOx3 and able to provide details into his medical and personal history. -Patient able to recall conversation related to hospice and went into detail of when he was on Hospice about two years ago, up until COVID-19 restrictions began. -We discussed his goals and he said that he realizes he needs additional help and can't return home safely without 24/7 care. -We did discuss a POLST form and the patient was able to sign it: DNR/DNI, comfort measures only, trial abx, and no artificial nutrition/hydration. -We discussed that the patient does not have a clear clinical indication/source of infection. His WBC is trending towards normal, today was 11.44, down from 15K. Patient agreeable to continue with IV antibiotics through the completion of course. -We discussed that PT does support further rehab at a SNF, with eventual transition more permanently. The patient understands and is agreeable to this. -Patient does feel at peace with his decline and eventual demise, but does have worries about financial strain. -I phoned his brother Taran, who is also his POA and discussed the above. -Taran understands and is agreeable to SNF referral placement. The patient did indicated he does NOT want to be transferred to [facility] [place] [facility]. Brother and patient agree for [facility] referral placement. -Above discussed with the immigration case manager as well. Taran will be in later this afternoon. -Likely life expectancy is months. Continue current treatment plan while hospitalized until placement confirmed. -PPS:30% (2) Deep vein thrombosis (DVT) of right lower extremity: (3) Metastatic melanoma: (4) Generalized weakness: (5) Depression: History of Present Illness Reason for Consultation: goals of care Requesting Physician: Dr. Hughes Attending Physician: Jaya Hughes MD History of Present Illness This is a 75 year old male who presented to the [facility] from his independent residence with worsening weakness as he slid out of his chair .The patient was found to have an infection, WBC was 20.8 on admission. Additional PMH includes metastatic melanoma with brain metastasis s/p radiation and ongoing steroids. This gentleman is a patient of Dr. Keys. The patient also does have pAF, non-obstructive CAD, HTN, hypothyroidism, and mood disorder. On admission, the patient was identified to have a RLE DVT. Additional source of infection is unclear as blood cultures, UA and chest X-ray are clear. The patient does have multiple skin tear sites on his b/l UE, but does not appear to have warmth or tenderness of his RLE. The patient was on Hospice two years ago(unsure which agency), and was discharged due to prolongation of prognosis. Physical Therapy has evaluated the patient while here in the hospital and does support additional rehab at a SNF. Palliative Care was consulted to discuss goals of care. Please see A/P for further details. Thank you kindly for involving the palliative care team with this patient. Allergies Allergy/AdvReac Type Severity Reaction Status Date / Time No Known Allergies Allergy Unknown Verified 08/13/20 01:23 Home Medications Home Medications Medication Instructions Recorded Confirmed Type nitroglycerin [Nitrostat] 0.4 mg UT UD PRN #0 06/18/08 08/13/20 History amiodarone 200 mg PO DAILY #0 10/02/16 08/13/20 History bupropion HCl [Wellbutrin XL] 300 mg PO DAILY #0 10/02/16 08/13/20 History desvenlafaxine succinate [Pristiq] 100 mg PO QAM #0 10/02/16 08/13/20 History levothyroxine 125 mcg PO DAILY #0 10/02/16 08/13/20 History propranolol [Inderal] 60 mg PO BID #0 10/02/16 08/13/20 History aspirin 325 mg tablet 325 mg PO DAILY 06/26/20 08/13/20 History fluticasone propionate 50 2 spray INTRANASAL DAILY PRN 06/26/20 08/13/20 History mcg/actuation nasal spray,suspension loperamide 2 mg capsule 2 mg PO BID PRN cap 06/26/20 08/13/20 History multivitamin 1 tab PO DAILY 06/26/20 08/13/20 History pantoprazole 40 mg tablet,delayed 40 mg PO DAILY 06/26/20 08/13/20 History release quetiapine 25 mg tablet 50 mg PO HS tab 06/26/20 08/13/20 History tramadol 50 mg tablet 50 mg PO Q6H PRN 06/26/20 08/13/20 History vitamin E 200 unit capsule 400 unit PO DAILY cap 06/26/20 08/13/20 History dexamethasone 4 mg tablet 4 mg PO BID 08/04/20 08/13/20 History clonazepam 1 mg PO HS 08/13/20 08/13/20 History diclofenac sodium 4 g TOPICAL QID 08/13/20 08/13/20 History Patient History Medical History (Updated 08/14/20 @ 11:47 by MITALI Wilkins) Afib Depression Gastric ulcer Heart disease History of left heart catheterization (LHC) Hypertension Hypothyroidism Incarcerated right inguinal hernia LVH (left ventricular hypertrophy) MDD (major depressive disorder) Osteoarthritis Palliative care encounter Surgical History (Updated 06/26/20 @ 13:40 by Sweetie Ferreira RN) H/O colonoscopy 2014 H/O hernia repair Late History of lithotripsy Late History of lymph node dissection of axilla 06/17/2017 - Left Axilla Non Vincent Node Packet - 09/22 nodes positive for malignant melanoma 08/17/2017 - SLN Dissection History of radical excision of skin lesion 04/27/2020 - Right Upper Back - Malignant Melanoma History of surgery 1979 - Benign tumor removed from back of right knee Family History (Updated 06/26/20 @ 13:43 by Sweetie Ferreira RN) Mother , Passed age 92 natural causes Skin cancer Father , Passed age 68 of H&N Cancer Prostate cancer, Onset Age: 58 Prostatectomy Brother No problems noted. Other Has no children Social History (Updated 06/26/20 @ 13:46 by Sweetie Ferreira RN) Smoking Status: Former smoker Smoking End Date: 1983; Hx Alcohol Use: No Hx Substance Use: No Preferred Language: Georgian Communication Ability: Effective Visual Impairment: Limited Hearing Ability: Normal Social Insurance Administrator Required: No Beliefs That Will Affect Care: None marital status: Single Current Living Situation: Alone Current Living Situation Comment: Lives in snf at [facility] current occupational status: retired current occupation: retired from [employer] at [employer] How many Children do You have: 0 Feels Safe at Home: Yes Safety Concerns: Feels Safe At This Time Childhood Exposure to Second-Hand Smoke: Yes (Father ) caffeine: No during the past year weight has: remained stable Dental Care, Regularly: Yes Assistive Devices: Glasses and Walker Review of Systems Review of Systems: All systems reviewed & are unremarkable except as noted in HPI & below Physical Exam Constitutional: cooperative and comfortable Eyes: PERRL, conjunctivae normal, anicteric sclerae Respiratory: normal respiratory effort, lungs clear to auscultation normal respiratory effort Auscultation: + diminished lung sounds Cardiovascular: Heart Sounds: normal S1 and normal S2 Vessels: dorsalis pedis pulses present and radial pulses present Extremities: normal capillary refill, + calf tenderness and + edema (RLE > LLE) Gastrointestinal (Abdomen): normal bowel sounds, soft, nontender, no hepatosplenomegaly Skin: + dry skin, + ecchymosis and + erythema multiple skin tears on his arms with duoderm in place Psychiatric: A+Ox3, euthymic affect Genitourinary: uses urinal Results & Data ([facility]) Vital Signs (Past 12 Hours) Vital Signs Temp Pulse Pulse Resp BP BP Pulse Ox 08/14/20 07:41 36.7 C 79 18 156/79 H 94 08/14/20 07:35 78 08/14/20 04:00 36.7 C 76 18 150/82 H 97 08/14/20 02:43 101 H 08/14/20 00:00 36.7 C 98 H 18 138/81 95 PG Care Time/CCT Total # of Minutes Spent Total Time Spent with Patient: Total time spent is greater than 50% in coordination of care (as documented) at patient's floor/unit and/or counseling patient: 100 Coding Level of Care Code 09313 Inpt Consult Level 4 Diagnoses Palliative care encounter Z51.5 Deep vein thrombosis (DVT) of right lower extremity I82.401 Metastatic melanoma C79.9 Generalized weakness R53.1 Depression F32.9 Time Spent (min) 100 Time Spent Midlevel Total time spent 100 minutes with > 50% of that time spent assessing the patient, discussing goals of care with the patient and patients brother (POA), completed POLST form, and collaborated with IDT
--- NOTE | 2020-08-14 14:21 | Hospitalist Progress Note ---
Date of Service August 14, 2020 Assessment & Plan (1) Leukocytosis: initial concern for Sepsis (however no obvious infectious source is found) Generalized Weakness -75 yr old male with stage IV malignancy who was evaluated in the ED on 08/13/2020 for generalized weakness to the point where he laid on ground for several hours at home this evening as per the ED notes -admission WBC of 20K to 15K, possibly from recent steroids for brain cancer versus possible infection -as per ED and admitting hospitalist notes that patient's elevated WBC, tachycardia on ED presentation, and lactic acid level of 4.9, with acute kidney injury may reflect sepsis and started on broad spectrum antibiotics in context of cancer and being on steroids -lactic acid resolved with IV fluids as the repeat was 1.5, currently on IV cefepime and IV daptomycin -as of 08/14/2020 the admission blood cultures with no growth to date and patient has remained afebrile, WBC 11K, continue IV antibiotics for now -As per palliative care nurse on 08/14/2020, patient and his brother agrees of comfort care care measures but allows to continue trial of IV antibiotics for now, no hydration and artificial nutrition by tube. Patient and his brother permits for lab draws while on IV antibiotics trial on discussion with hospitalist (2) Metastatic melanoma: Metastatic melanoma: -as per Dr. Rodriguez oncology notes on 06/25/2020 visit: "75-year-old male with history of melanoma was diagnosed in 03/2017 when he was found to have mass on the right upper back. He underwent resection. Subsequently he underwent a right axillary lymph node dissection and 09/22 lymph nodes were positive for metastatic disease. Lymph node from the left axillary area were negative. He had a stage T4b N3 disease and B Jorge was positive. Patient was seen by Dr. Feldman at that time and options of treatment were discussed but patient refused. Now he present with new mass on the left upper back shoulder for last few months which is increasing in size. Patient is also complaining of headache for last few weeks. Physical examination is unremarkable except that there is a 7 cm mass in the left upper back. He had follow-up PET scan done which shows lesion in the left shoulder and also there is a lesion in the left frontotemporal area. MRI was also done which confirmed the finding." -Dr. Rodriguez comments in 06/25/2020 that patient to be on Decadron 4 mg twice a day for brain edema and radiation to brain -patient reports he completed treatment for radiation to the brain with lasts session on Tuesday08/08/2020 (3) Brain cancer: -history as above -continue the dexamethasone (4) Deep vein thrombosis (DVT) of right lower extremity: Comfort care measures -patient reports that since brain radiation treatment, he has been less active -he reports that he noted more right leg swelling prior to admission -ultrasound finding on this admission of "Nonocclusive deep venous thrombosis is seen in the right lower extremity extending from the distal superficial femoral vein to the calf." -hospitalist contacted patient's oncologist Dr. Rodriguez in regards to patient's brain cancer, thrombocytopenia, and new ultrasound finding on this admission of "Nonocclusive deep venous thrombosis is seen in the right lower extremity extending from the distal superficial femoral vein to the calf" on 08/13/2020, the assessment at that time was to continue patient on heparin 5000 units q 8 hours instead of full dose systemic anticoagulation in the context of patient's falling platelet counts, patient's refusal of consenting to any blood transfusions if he were to bleed while on systemic anticoagulations, and poor overall terminal operations supervisor prognosis of mortality from brain cancer -Dr. Rodriguez reported to hospitalist that in his outpatient discussion with patient that he had discussed hospice care in the future given patient's co- morbidities -Patient and his brother was aware that without systemic anticoagulation that patient's right leg DVT can get worse over time and may cause respiratory distress if he develops pulmonary embolism. However, for various reasons as discussed, patient is not a good candidate for systemic anticoagulation and so if patient develops more thromboembolism, then symptoms to be managed with comfort as the goal -POLST forms with comfort care measures and other tentative interventions were signed by patient and in agreement with his brother by palliative care nurse on 08/14/2020 -disposition is to to transition patient to facility for hospice (5) Thrombocytopenia: -outpatient 06/16/20 labs of Hgb 14.7 and platelets 267K -however patient has low platelets on admission of 74K to 62K -platelets 55K on 08/14/2020 (6) Anemia: -admission Hgb 12.5 and followup Hgb 10.6 -Hgb 10.8 on 08/14/2020 (7) NIRU (acute kidney injury): -admission creatinine of 1.78 and after IV fluids is 1.16 -creatinine is 0.79 by 08/14/2020 (8) Abnormal thyroid function test: -outpatient records 12/28/2018 showed normal TSH of 0.89 -admission TSH very low of 0.044, and low total T3 of 0.47, but normal free T4 of 1.21 -these abnormal thyroid labs may reflect overall illness or too much levothyroxine at home, cut back on home dose levothyroxine from 125 mcg daily to 75 mcg daily starting on 08/14/2020 (9) Elevated hemoglobin A1c: -admission HbA1c of 6.8 -no prior documented history of diabetes mellitus -blood glucose could be from use of steroids to prevent vasogenic edema from the brain cancer -because patient transitioning to comfort care measures and hospice, will not aggressively correct blood sugars with insulin at this time (10) PAF (paroxysmal atrial fibrillation): Coronary Artery Disease -continue home dose amiodarone, avoid aspirin because of thrombocytopenia (11) Depression: -continue home dose buproprion, quetiapine (12) Tremor: -continue home dose propanolol Admission and Anticipated Discharge Date Admission Date: August 13, 2020 Subjective As per palliative care nurse on 08/14/2020, patient and his brother agrees of comfort care care measures but allows to continue trial of IV antibiotics for now, no hydration and artificial nutrition by tube. Patient and his brother permits for lab draws while on IV antibiotics trial on discussion with hospitalist patient breathing on room air. He is not in acute pain. Patient and his brother was aware that without systemic anticoagulation that patient's right leg DVT can get worse over time and may cause respiratory distress if he develops pulmonary embolism. However, for various reasons as discussed, patient is not a good candidate for systemic anticoagulation and so if patient develops more thromboembolism, then symptoms to be managed with comfort as the goal Review of Systems Review of Systems: All systems reviewed & are unremarkable except as noted in Subjective Physical Exam Constitutional: cooperative Eyes: PERRL, conjunctivae normal, anicteric sclerae EOM intact bilaterally ENMT: external ear and nose normal, oropharynx normal Neck: normal visual inspection Respiratory: normal respiratory effort, lungs clear to auscultation Cardiovascular: Rate/Rhythm: regular rate Gastrointestinal (Abdomen): normal bowel sounds, soft, nontender, no hepatosplenomegaly Musculoskeletal: Head/Neck/Chest: normocephalic Neurologic: PERRL, EOMI, accommodation nl, no face palsy, no dysarthria Psychiatric: A+Ox3, euthymic affect Results & Data Results & Data ([facility]) Vital Signs (Past 12 Hours) Vital Signs Temp Pulse Pulse Resp BP Pulse Ox 08/14/20 12:14 37.1 C 84 20 143/50 H 93 08/14/20 07:41 36.7 C 79 18 156/79 H 94 08/14/20 07:35 78 08/14/20 04:00 36.7 C 76 18 150/82 H 97 08/14/20 02:43 101 H
[2020-08-14] MEDS: QUEtiapine FUMARATE 25 MG TABLET PO SCH (20:46)
[2020-08-14] MEDS: clonazePAM 1 MG TAB PO SCH (20:49)
[2020-08-15] MEDS: LEVOTHYROXINE SODIUM 75 MCG TABLET PO SCH (05:04)
[2020-08-15] MEDS: HEPARIN SOD 5,000 UNIT/0.5 ML VIAL SQ SCH ×3 (05:04→21:37)
[2020-08-15] MEDS: traMADol HCL 50 MG TABLET PO PRN ×3 (05:20→21:36)
[2020-08-15 07:51] LABS: Hematocrit (blood only) 33.6 % (42-52); Hemoglobin 11.3 g/dL (14.0-18.0); Mean Corpuscular Hemoglobin 31.9 pg (25-34); Mean Corpuscular Hgb Conc 33.6 g/dL (32-36); Mean Corpuscular Volume 94.9 fL (80-100); RDW Coefficient of Variation 13.8 % (11.5-14.5); RDW Standard Deviation 47.6 fL (36.4-46.3); Red Blood Count 3.54 M/uL (4.7-6.1); White Blood Count 11.92 K/uL (4.8-10.8)
[2020-08-15 08:01] LABS: Platelet Count 70 K/uL (130-400)
[2020-08-15 08:18] LABS: Immature Granulocytes # (auto) 0.31 K/uL (0.00-0.02); Immature Granulocytes % (auto) 2.6 %; Lymphocytes # (auto) 1.04 K/uL (1.2-3.4); Lymphocytes % (auto) 8.7 %; Monocytes # (auto) 0.15 K/uL (0.11-0.59); Monocytes % (auto) 1.3 %; Neutrophils # (auto) 10.42 K/uL (1.4-6.5); Neutrophils % (auto) 87.4 %
[2020-08-15] MEDS: dexAMETHasone 4 MG TAB PO SCH ×2 (09:40→21:36)
[2020-08-15] MEDS: AMIODARONE 200 MG TAB PO SCH (09:41)
[2020-08-15] MEDS: MULTIVITAMIN TAB PO SCH (09:41)
[2020-08-15] MEDS: buPROPion XL 300 MG TABCR PO SCH (09:41)
[2020-08-15] MEDS: PROPRANOLOL HCL 20 MG TAB PO SCH ×2 (09:42→21:36)
[2020-08-15] MEDS: PANTOprazole 40 MG TAB PO SCH (09:42)
--- NOTE | 2020-08-15 09:50 | Hospitalist Progress Note ---
Date of Service August 15, 2020 Assessment & Plan (1) Leukocytosis: initial concern for Sepsis (however no obvious infectious source is found) Leukocytosis Generalized Weakness -75 yr old male with stage IV malignancy who was evaluated in the ED on 08/13/2020 for generalized weakness to the point where he laid on ground for several hours at home this evening as per the ED notes -admission WBC of 20K to 15K, possibly from recent steroids for brain cancer versus possible infection -as per ED and admitting hospitalist notes that patient's elevated WBC, tachycardia on ED presentation, and lactic acid level of 4.9, with acute kidney injury may reflect sepsis and started on broad spectrum antibiotics in context of cancer and being on steroids -lactic acid resolved with IV fluids as the repeat was 1.5, currently on IV cefepime and IV daptomycin -as of 08/14/2020 the admission blood cultures with no growth to date and patient has remained afebrile, WBC 11K, continue IV antibiotics for now -As per palliative care nurse on 08/14/2020, patient and his brother agrees of comfort care care measures but allows to continue trial of IV antibiotics for now, no hydration and artificial nutrition by tube. Patient and his brother permits for lab draws while on IV antibiotics trial on discussion with hospitalist -as of 08/15/2020 the WBC 12L but admission blood cultures have no growth. No further IV cefepime or IV daptomycin at this time. patient awaiting case management for hospice facility, can continue antibiotics as IV ceftriaxone q24 hours for now and patient in agreement (2) Metastatic melanoma: Metastatic melanoma: -as per Dr. Rodriguez oncology notes on 06/25/2020 visit: "75-year-old male with history of melanoma was diagnosed in 03/2017 when he was found to have mass on the right upper back. He underwent resection. Subs equently he underwent a right axillary lymph node dissection and 09/22 lymph nodes were positive for metastatic disease. Lymph node from the left axillary area were negative. He had a stage T4b N3 disease and B Jorge was positive. Patient was seen by Dr. Feldman at that time and options of treatment were discussed but patient refused. Now he present with new mass on the left upper back shoulder for last few months which is increasing in size. Patient is also complaining of headache for last few weeks. Physical examination is unremarkable except that there is a 7 cm mass in the left upper back. He had follow-up PET scan done which shows lesion in the left shoulder and also there is a lesion in the left frontotemporal area. MRI was also done which confirmed the finding." -Dr. Rodriguez comments in 06/25/2020 that patient to be on Decadron 4 mg twice a day for brain edema and radiation to brain -patient reports he completed treatment for radiation to the brain with lasts session on Tuesday08/08/2020 (3) Brain cancer: -history as above -continue the dexamethasone (4) Deep vein thrombosis (DVT) of right lower extremity: Comfort care measures -patient reports that since brain radiation treatment, he has been less active -he reports that he noted more right leg swelling prior to admission -ultrasound finding on this admission of "Nonocclusive deep venous thrombosis is seen in the right lower extremity extending from the distal superficial femoral vein to the calf." -hospitalist contacted patient's oncologist Dr. Rodriguez in regards to patient's brain cancer, thrombocytopenia, and new ultrasound finding on this admission of "Nonocclusive deep venous thrombosis is seen in the right lower extremity extending from the distal superficial femoral vein to the calf" on 08/13/2020, the assessment at that time was to continue patient on heparin 5000 units q 8 hours instead of full dose systemic anticoagulation in the context of patient's falling platelet counts, patient's refusal of consenting to any blood transfusions if he were to bleed while on systemic anticoagulations, and poor overall intermodal dispatcher prognosis of mortality from brain cancer -Dr. Rodriguez reported to hospitalist that in his outpatient discussion with patient that he had discussed hospice care in the future given patient's co- morbidities -Patient and his brother is aware that without systemic anticoagulation that patient's right leg DVT can get worse over time and may cause respiratory distress if he develops pulmonary embolism. However, for various reasons as discussed, patient is not a good candidate for systemic anticoagulation and so if patient develops more thromboembolism, then symptoms to be managed with comfort as the goal -POLST forms with comfort care measures and other tentative interventions were signed by patient and in agreement with his brother by palliative care nurse on 08/14/2020 -disposition is to to transition patient to facility for hospice (5) Thrombocytopenia: -outpatient 06/16/20 labs of Hgb 14.7 and platelets 267K -however patient has low platelets on admission of 74K to 62K -platelets 55K on 08/14/2020 but somewhat better to 70K by 08/15/2020 (6) Anemia: -admission Hgb 12.5 and followup Hgb 10.6 -Hgb 10.8 on 08/14/2020, 11.3 on 08/15/2020 (7) NIRU (acute kidney injury): -admission creatinine of 1.78 and after IV fluids is 1.16 -creatinine is 0.79 by 08/14/2020 (8) Abnormal thyroid function test: -outpatient records 12/28/2018 showed normal TSH of 0.89 -admission TSH very low of 0.044, and low total T3 of 0.47, but normal free T4 of 1.21 -these abnormal thyroid labs may reflect overall illness or too much levothyroxine at home, cut back on home dose levothyroxine from 125 mcg daily to 75 mcg daily starting on 08/14/2020 (9) Elevated hemoglobin A1c: -admission HbA1c of 6.8 -no prior documented history of diabetes mellitus -blood glucose could be from use of steroids to prevent vasogenic edema from the brain cancer -because patient transitioning to comfort care measures and hospice, will not aggressively correct blood sugars with insulin at this time (10) PAF (paroxysmal atrial fibrillation): Coronary Artery Disease -continue home dose amiodarone, avoid aspirin because of thrombocytopenia (11) Depression: -continue home dose buproprion, quetiapine (12) Tremor: -continue home dose propanolol Admission and Anticipated Discharge Date Admission Date: August 13, 2020 Subjective -as of 08/15/2020 the WBC 12L but admission blood cultures have no growth. No further IV cefepime or IV daptomycin at this time. patient awaiting case management for hospice facility, can continue antibiotics as IV ceftriaxone q24 hours for now and patient in agreement breathing on room air. no chest pain. no abdomen pain. no vomiting Review of Systems Review of Systems: All systems reviewed & are unremarkable except as noted in Subjective Physical Exam Constitutional: cooperative Eyes: PERRL, conjunctivae normal, anicteric sclerae EOM intact bilaterally ENMT: external ear and nose normal, oropharynx normal Neck: normal visual inspection Respiratory: normal respiratory effort, lungs clear to auscultation Cardiovascular: Rate/Rhythm: regular rate Gastrointestinal (Abdomen): normal bowel sounds, soft, nontender, no hepatosplenomegaly Musculoskeletal: Head/Neck/Chest: normocephalic Neurologic: PERRL, EOMI, accommodation nl, no face palsy, no dysarthria Psychiatric: A+Ox3, euthymic affect
[2020-08-15] MEDS: cefTRIAXone SODIUM 2,000 MG in DEXTROSE 5% 50 ML IV SCH (10:57)
[2020-08-15] MEDS: QUEtiapine FUMARATE 25 MG TABLET PO SCH (21:37)
[2020-08-15] MEDS: clonazePAM 1 MG TAB PO SCH (21:37)
[2020-08-16] MEDS: traMADol HCL 50 MG TABLET PO PRN ×2 (05:42→14:06)
[2020-08-16] MEDS: HEPARIN SOD 5,000 UNIT/0.5 ML VIAL SQ SCH ×3 (05:43→20:55)
[2020-08-16] MEDS: LEVOTHYROXINE SODIUM 75 MCG TABLET PO SCH (05:43)
[2020-08-16 06:43] LABS: Hematocrit (blood only) 35.2 % (42-52); Hemoglobin 11.6 g/dL (14.0-18.0); Mean Corpuscular Hemoglobin 31.7 pg (25-34); Mean Corpuscular Volume 96.2 fL (80-100); RDW Standard Deviation 48.3 fL (36.4-46.3); Red Blood Count 3.66 M/uL (4.7-6.1); White Blood Count 11.33 K/uL (4.8-10.8)
[2020-08-16 07:15] LABS: Albumin Level 2.3 gm/dl (3.4-5.0); BUN Creatinine Ratio 31.4 (10-20); Basophils # (auto) 0.02 K/uL (0-0.2); Basophils % (auto) 0.2 %; Calcium 8.7 mg/dl (8.5-10.1); Creatinine Clr Calc Pharmacy 91.3 ml/min; Est GFR (African American) 100.1; Est GFR (Non-African American) 86.3; Immature Granulocytes # (auto) 0.47 K/uL (0.00-0.02); Immature Granulocytes % (auto) 4.1 %; Lymphocytes # (auto) 0.77 K/uL (1.2-3.4); Lymphocytes % (auto) 6.8 %; Monocytes # (auto) 0.34 K/uL (0.11-0.59); Neutrophils # (auto) 9.73 K/uL (1.4-6.5); Neutrophils % (auto) 85.9 %; Platelet Count 90 K/uL (130-400); Potassium 4.3 mmol/L (3.5-5.1)
[2020-08-16 07:18] LABS: Albumin Globulin Ratio 0.7 (0.9-2); Bilirubin,Total 0.5 mg/dl (0.2-1); Globulin 3.1 gm/dl (2.5-4.0); Total Protein 5.4 gm/dl (6.4-8.2)
[2020-08-16] MEDS: AMIODARONE 200 MG TAB PO SCH (08:08)
[2020-08-16] MEDS: PROPRANOLOL HCL 20 MG TAB PO SCH ×2 (08:08→20:54)
[2020-08-16] MEDS: PANTOprazole 40 MG TAB PO SCH (08:08)
[2020-08-16] MEDS: buPROPion XL 300 MG TABCR PO SCH (08:08)
[2020-08-16] MEDS: MULTIVITAMIN TAB PO SCH (08:08)
[2020-08-16] MEDS: dexAMETHasone 4 MG TAB PO SCH ×2 (08:09→20:54)
[2020-08-16] MEDS: cefTRIAXone SODIUM 2,000 MG in DEXTROSE 5% 50 ML IV SCH (10:26)
--- NOTE | 2020-08-16 13:05 | Hospitalist Progress Note ---
Date of Service August 16, 2020 Assessment & Plan (1) Leukocytosis: initial concern for Sepsis (however no obvious infectious source is found) Leukocytosis Generalized Weakness -75 yr old male with stage IV malignancy who was evaluated in the ED on 08/13/2020 for generalized weakness to the point where he laid on ground for several hours at home this evening as per the ED notes -admission WBC of 20K to 15K, possibly from recent steroids for brain cancer versus possible infection -as per ED and admitting hospitalist notes that patient's elevated WBC, tachycardia on ED presentation, and lactic acid level of 4.9, with acute kidney injury may reflect sepsis and started on broad spectrum antibiotics in context of cancer and being on steroids -lactic acid resolved with IV fluids as the repeat was 1.5, currently on IV cefepime and IV daptomycin -as of 08/14/2020 the admission blood cultures with no growth to date and patient has remained afebrile, WBC 11K, continue IV antibiotics for now -As per palliative care nurse on 08/14/2020, patient and his brother agrees of comfort care care measures but allows to continue trial of IV antibiotics for now, no hydration and artificial nutrition by tube. Patient and his brother permits for lab draws while on IV antibiotics trial on discussion with hospitalist -as of 08/15/2020 the WBC 12K but admission blood cultures have no growth. No further IV cefepime or IV daptomycin at this time. patient awaiting case management for hospice facility, can continue antibiotics as IV ceftriaxone q24 hours for now and patient in agreement (2) Metastatic melanoma: Metastatic melanoma: -as per Dr. Rodriguez oncology notes on 06/25/2020 visit: "75-year-old male with history of melanoma was diagnosed in 03/2017 when he was found to have mass on the right upper back. He underwent resection. Subs equently he underwent a right axillary lymph node dissection and 09/22 lymph nodes were positive for metastatic disease. Lymph node from the left axillary area were negative. He had a stage T4b N3 disease and B Jorge was positive. Patient was seen by Dr. Feldman at that time and options of treatment were discussed but patient refused. Now he present with new mass on the left upper back shoulder for last few months which is increasing in size. Patient is also complaining of headache for last few weeks. Physical examination is unremarkable except that there is a 7 cm mass in the left upper back. He had follow-up PET scan done which shows lesion in the left shoulder and also there is a lesion in the left frontotemporal area. MRI was also done which confirmed the finding." -Dr. Rodriguez comments in 06/25/2020 that patient to be on Decadron 4 mg twice a day for brain edema and radiation to brain -patient reports he completed treatment for radiation to the brain with lasts session on Tuesday08/08/2020 (3) Brain cancer: -history as above -continue the dexamethasone (4) Deep vein thrombosis (DVT) of right lower extremity: Comfort care measures -patient reports that since brain radiation treatment, he has been less active -he reports that he noted more right leg swelling prior to admission -ultrasound finding on this admission of "Nonocclusive deep venous thrombosis is seen in the right lower extremity extending from the distal superficial femoral vein to the calf." -hospitalist contacted patient's oncologist Dr. Rodriguez in regards to patient's brain cancer, thrombocytopenia, and new ultrasound finding on this admission of "Nonocclusive deep venous thrombosis is seen in the right lower extremity extending from the distal superficial femoral vein to the calf" on 08/13/2020, the assessment at that time was to continue patient on heparin 5000 units q 8 hours instead of full dose systemic anticoagulation in the context of patient's falling platelet counts, patient's refusal of consenting to any blood transfusions if he were to bleed while on systemic anticoagulations, and poor overall group home prognosis of mortality from brain cancer -Dr. Rodriguez reported to hospitalist that in his outpatient discussion with patient that he had discussed hospice care in the future given patient's co- morbidities -Patient and his brother is aware that without systemic anticoagulation that patient's right leg DVT can get worse over time and may cause respiratory distress if he develops pulmonary embolism. However, for various reasons as discussed, patient is not a good candidate for systemic anticoagulation and so if patient develops more thromboembolism, then symptoms to be managed with comfort as the goal -POLST forms with comfort care measures and other tentative interventions were signed by patient and in agreement with his brother by palliative care nurse on 08/14/2020 -disposition is to to transition patient to facility for hospice; piano case maker notes that possibly patient can go to physical therapy center and transition to hospice set up by the facility (5) Thrombocytopenia: -outpatient 06/16/20 labs of Hgb 14.7 and platelets 267K -however patient has low platelets on admission of 74K to 62K -platelets 55K on 08/14/2020 but somewhat better to 90K by 08/16/2020 (6) Anemia: -admission Hgb 12.5 and followup Hgb 10.6 -Hgb 10.8 on 08/14/2020, 11.6 on 08/15/2020 (7) NIRU (acute kidney injury): -admission creatinine of 1.78 and after IV fluids is 1.16 -creatinine is 0.79 by 08/14/2020 (8) Abnormal thyroid function test: -outpatient records 12/28/2018 showed normal TSH of 0.89 -admission TSH very low of 0.044, and low total T3 of 0.47, but normal free T4 of 1.21 -these abnormal thyroid labs may reflect overall illness or too much levothyroxine at home, cut back on home dose levothyroxine from 125 mcg daily to 75 mcg daily starting on 08/14/2020 (9) Elevated hemoglobin A1c: -admission HbA1c of 6.8 -no prior documented history of diabetes mellitus -blood glucose could be from use of steroids to prevent vasogenic edema from the brain cancer -because patient transitioning to comfort care measures and hospice, will not aggressively correct blood sugars with insulin at this time (10) PAF (paroxysmal atrial fibrillation): Coronary Artery Disease -continue home dose amiodarone, avoid aspirin because of thrombocytopenia (11) Depression: -continue home dose buproprion, quetiapine (12) Tremor: -continue home dose propanolol Admission and Anticipated Discharge Date Admission Date: August 13, 2020 Subjective Patient resting. denies acute distress. denies acute pain. on room air. no dizziness. no headache Review of Systems Review of Systems: All systems reviewed & are unremarkable except as noted in Subjective Physical Exam Constitutional: cooperative Eyes: PERRL, conjunctivae normal, anicteric sclerae EOM intact bilaterally ENMT: external ear and nose normal, oropharynx normal Neck: normal visual inspection Respiratory: normal respiratory effort, lungs clear to auscultation Cardiovascular: Rate/Rhythm: regular rate Gastrointestinal (Abdomen): normal bowel sounds, soft, nontender, no hepatosplenomegaly Musculoskeletal: Head/Neck/Chest: normocephalic Extremities: + lower leg abnormality (right leg swollen compared to left) Neurologic: PERRL, EOMI, accommodation nl, no face palsy, no dysarthria Psychiatric: A+Ox3, euthymic affect
[2020-08-16] MEDS: clonazePAM 1 MG TAB PO SCH (20:53)
[2020-08-16] MEDS: QUEtiapine FUMARATE 25 MG TABLET PO SCH (20:54)
[2020-08-17] MEDS: traMADol HCL 50 MG TABLET PO PRN ×3 (06:04→20:46)
[2020-08-17] MEDS: LEVOTHYROXINE SODIUM 75 MCG TABLET PO SCH (06:04)
[2020-08-17] MEDS: HEPARIN SOD 5,000 UNIT/0.5 ML VIAL SQ SCH ×2 (06:05→13:58)
[2020-08-17] MEDS: buPROPion XL 300 MG TABCR PO SCH (08:01)
[2020-08-17] MEDS: AMIODARONE 200 MG TAB PO SCH (08:02)
[2020-08-17] MEDS: MULTIVITAMIN TAB PO SCH (08:02)
[2020-08-17] MEDS: PANTOprazole 40 MG TAB PO SCH (08:02)
[2020-08-17] MEDS: PROPRANOLOL HCL 20 MG TAB PO SCH ×2 (08:02→20:41)
[2020-08-17] MEDS: dexAMETHasone 4 MG TAB PO SCH ×2 (08:02→20:41)
--- NOTE | 2020-08-17 11:20 | Hospitalist Progress Note ---
Date of Service August 17, 2020 Assessment & Plan (1) Leukocytosis: initial concern for Sepsis (however no obvious infectious source is found) Leukocytosis Generalized Weakness -75 yr old male with stage IV malignancy who was evaluated in the ED on 08/13/2020 for generalized weakness to the point where he laid on ground for several hours at home this evening as per the ED notes -admission WBC of 20K to 15K, possibly from recent steroids for brain cancer versus possible infection -as per ED and admitting hospitalist notes that patient's elevated WBC, tachycardia on ED presentation, and lactic acid level of 4.9, with acute kidney injury may reflect sepsis and started on broad spectrum antibiotics in context of cancer and being on steroids -lactic acid resolved with IV fluids as the repeat was 1.5, currently on IV cefepime and IV daptomycin -as of 08/14/2020 the admission blood cultures with no growth to date and patient has remained afebrile, WBC 11K, continue IV antibiotics for now -As per palliative care nurse on 08/14/2020, patient and his brother agrees of comfort care care measures but allows to continue trial of IV antibiotics for now, no hydration and artificial nutrition by tube. Patient and his brother permits for lab draws while on IV antibiotics trial on discussion with hospitalist -as of 08/15/2020 the WBC 12K but admission blood cultures have no growth. No further IV cefepime or IV daptomycin at this time. patient awaiting case management for hospice facility, can continue antibiotics as IV ceftriaxone q24 hours for now and patient in agreement -08/17/2020: patient reports last bowel movement was 2 days ago. no abdomen pain. he requests increase in frequency or pain medications. no chest pain. no shortness of breath. no vomiting on room air. he reports that his brother will be coming to see him today; will increase frequency of pain medications (2) Metastatic melanoma: Metastatic melanoma: -as per Dr. Rodriguez oncology notes on 06/25/2020 visit: "75-year-old male with history of melanoma was diagnosed in 03/2017 when he was found to have mass on the right upper back. He underwent resection. Subsequently he underwent a right axillary lymph node dissection and 09/22 lymph nodes were positive for metastatic disease. Lymph node from the left axillary area were negative. He had a stage T4b N3 disease and B Jorge was positive. Patient was seen by Dr. Feldman at that time and options of treatment were discussed but patient refused. Now he present with new mass on the left upper back shoulder for last few months which is increasing in size. Patient is also complaining of headache for last few weeks. Physical examination is unremarkable except that there is a 7 cm mass in the left upper back. He had follow-up PET scan done which shows lesion in the left shoulder and also there is a lesion in the left frontotemporal area. MRI was also done which confirmed the finding." -Dr. Rodriguez comments in 06/25/2020 that patient to be on Decadron 4 mg twice a day for brain edema and radiation to brain -patient reports he completed treatment for radiation to the brain with lasts session on Tuesday08/08/2020 (3) Brain cancer: -history as above -continue the dexamethasone (4) Deep vein thrombosis (DVT) of right lower extremity: Comfort care measures -patient reports that since brain radiation treatment, he has been less active -he reports that he noted more right leg swelling prior to admission -ultrasound finding on this admission of "Nonocclusive deep venous thrombosis is seen in the right lower extremity extending from the distal superficial femoral vein to the calf." -hospitalist contacted patient's oncologist Dr. Rodriguez in regards to patient's brain cancer, thrombocytopenia, and new ultrasound finding on this admission of "Nonocclusive deep venous thrombosis is seen in the right lower extremity extending from the distal superficial femoral vein to the calf" on 08/13/2020, the assessment at that time was to continue patient on heparin 5000 units q 8 hours instead of full dose systemic anticoagulation in the context of patient's falling platelet counts, patient's refusal of consenting to any blood transfusions if he were to bleed while on systemic anticoagulations, and poor overall retirement prognosis of mortality from brain cancer -Dr. Rodriguez reported to hospitalist that in his outpatient discussion with patient that he had discussed hospice care in the future given patient's co- morbidities -Patient and his brother is aware that without systemic anticoagulation that patient's right leg DVT can get worse over time and may cause respiratory distress if he develops pulmonary embolism. However, for various reasons as discussed, patient is not a good candidate for systemic anticoagulation and so if patient develops more thromboembolism, then symptoms to be managed with comfort as the goal -POLST forms with comfort care measures and other tentative interventions were signed by patient and in agreement with his brother by palliative care nurse on 08/14/2020 -disposition is to to transition patient to facility for hospice; case therapist notes that possibly patient can go to physical therapy center and transition to hospice set up by the facility (5) Thrombocytopenia: -outpatient 06/16/20 labs of Hgb 14.7 and platelets 267K -however patient has low platelets on admission of 74K to 62K -platelets 55K on 08/14/2020 but somewhat better to 90K by 08/16/2020 (6) Anemia: -admission Hgb 12.5 and followup Hgb 10.6 -Hgb 10.8 on 08/14/2020, 11.6 on 08/15/2020 (7) NIRU (acute kidney injury): -admission creatinine of 1.78 and after IV fluids is 1.16 -creatinine is 0.79 by 08/14/2020 (8) Abnormal thyroid function test: -outpatient records 12/28/2018 showed normal TSH of 0.89 -admission TSH very low of 0.044, and low total T3 of 0.47, but normal free T4 of 1.21 -these abnormal thyroid labs may reflect overall illness or too much levothyroxine at home, cut back on home dose levothyroxine from 125 mcg daily to 75 mcg daily starting on 08/14/2020 (9) Elevated hemoglobin A1c: -admission HbA1c of 6.8 -no prior documented history of diabetes mellitus -blood glucose could be from use of steroids to prevent vasogenic edema from the brain cancer -because patient transitioning to comfort care measures and hospice, will not aggressively correct blood sugars with insulin at this time (10) PAF (paroxysmal atrial fibrillation): Coronary Artery Disease -continue home dose amiodarone, avoid aspirin because of thrombocytopenia (11) Depression: -continue home dose buproprion, quetiapine (12) Tremor: -continue home dose propanolol Admission and Anticipated Discharge Date Admission Date: August 13, 2020 Subjective patient reports last bowel movement was 2 days ago. no abdomen pain. he requests increase in frequency or pain medications. no chest pain. no shortness of breath. no vomiting on room air. he reports that his brother will be coming to see him today. Review of Systems Review of Systems: All systems reviewed & are unremarkable except as noted in Subjective Physical Exam Constitutional: cooperative Eyes: PERRL, conjunctivae normal, anicteric sclerae EOM intact bilaterally ENMT: external ear and nose normal, oropharynx normal Neck: normal visual inspection Respiratory: normal respiratory effort, lungs clear to auscultation Cardiovascular: Rate/Rhythm: regular rate Gastrointestinal (Abdomen): normal bowel sounds, soft, nontender, no hepatosplenomegaly Musculoskeletal: Head/Neck/Chest: normocephalic Extremities: + lower leg abnormality (right leg swollen compared to left) Neurologic: PERRL, EOMI, accommodation nl, no face palsy, no dysarthria Psychiatric: A+Ox3, euthymic affect
[2020-08-17] MEDS: ACETAMINOPHEN 325 MG TAB PO PRN (12:05)
[2020-08-17] MEDS: QUEtiapine FUMARATE 25 MG TABLET PO SCH (20:41)
[2020-08-17] MEDS: clonazePAM 1 MG TAB PO SCH (20:45)
[2020-08-18] MEDS: ACETAMINOPHEN 325 MG TAB PO PRN (00:22)
[2020-08-18] MEDS: LEVOTHYROXINE SODIUM 75 MCG TABLET PO SCH (05:58)
[2020-08-18] MEDS: traMADol HCL 50 MG TABLET PO PRN ×3 (05:58→21:41)
[2020-08-18] MEDS: dexAMETHasone 4 MG TAB PO SCH ×2 (07:35→21:37)
[2020-08-18] MEDS: AMIODARONE 200 MG TAB PO SCH (07:36)
[2020-08-18] MEDS: PROPRANOLOL HCL 20 MG TAB PO SCH ×2 (07:36→21:37)
[2020-08-18] MEDS: buPROPion XL 300 MG TABCR PO SCH (07:36)
[2020-08-18] MEDS: MULTIVITAMIN TAB PO SCH (07:36)
[2020-08-18] MEDS: PANTOprazole 40 MG TAB PO SCH (07:37)
--- NOTE | 2020-08-18 13:00 | Hospitalist Progress Note ---
Date of Service August 18, 2020 Assessment & Plan (1) Leukocytosis: initial concern for Sepsis (however no obvious infectious source is found) Leukocytosis Generalized Weakness -75 yr old male with stage IV malignancy who was evaluated in the ED on 08/13/2020 for generalized weakness to the point where he laid on ground for several hours at home this evening as per the ED notes -admission WBC of 20K to 15K, possibly from recent steroids for brain cancer versus possible infection -as per ED and admitting hospitalist notes that patient's elevated WBC, tachycardia on ED presentation, and lactic acid level of 4.9, with acute kidney injury may reflect sepsis and started on broad spectrum antibiotics in context of cancer and being on steroids -lactic acid resolved with IV fluids as the repeat was 1.5, currently on IV cefepime and IV daptomycin -as of 08/14/2020 the admission blood cultures with no growth to date and patient has remained afebrile, WBC 11K, continue IV antibiotics for now -As per palliative care nurse on 08/14/2020, patient and his brother agrees of comfort care care measures but allows to continue trial of IV antibiotics for now, no hydration and artificial nutrition by tube. Patient and his brother permits for lab draws while on IV antibiotics trial on discussion with hospitalist -as of 08/15/2020 the WBC 12K but admission blood cultures have no growth. No further IV cefepime or IV daptomycin at this time. patient awaiting case management for hospice facility, can continue antibiotics as IV ceftriaxone q24 hours for now and patient in agreement -08/17/2020: patient reports last bowel movement was 2 days ago. increased frequency of pain medications. goals of care affirmed by patient and brother of comfort measures, recent reported hematuria by patient, and despite improved platelets on last time labs were obtained, patient has no wish to be on systemic anticoagulation for right leg DVT and again no wishes for blood transfusions. his PT assessment recommend SNF level of care for physical therapy -08/18/2020: patient reports some ambulation. denies acute pain as he feels the pain medication changes from 08/17/2020 are helping. remains breathing on room air. no chest pain. no abdomen pain. patient able to eat the meals. denies other complaints (2) Metastatic melanoma: Metastatic melanoma: -as per Dr. Rodriguez oncology notes on 06/25/2020 visit: "75-year-old male with history of melanoma was diagnosed in 03/2017 when he was found to have mass on the right upper back. He underwent resection. Subsequently he underwent a right axillary lymph node dissection and 09/22 lymph nodes were positive for metastatic disease. Lymph node from the left axillary area were negative. He had a stage T4b N3 disease and B Jorge was positive. Patient was seen by Dr. Feldman at that time and options of treatment were discussed but patient refused. Now he present with new mass on the left upper back shoulder for last few months which is increasing in size. Patient is also complaining of headache for last few weeks. Physical examination is unremarkable except that there is a 7 cm mass in the left upper back. He had follow-up PET scan done which shows lesion in the left shoulder and also there i s a lesion in the left frontotemporal area. MRI was also done which confirmed the finding." -Dr. Rodriguez comments in 06/25/2020 that patient to be on Decadron 4 mg twice a day for brain edema and radiation to brain -patient reports he completed treatment for radiation to the brain with lasts session on Tuesday08/08/2020 (3) Brain cancer: -history as above -continue the dexamethasone (4) Deep vein thrombosis (DVT) of right lower extremity: Comfort care measures -patient reports that since brain radiation treatment, he has been less active -he reports that he noted more right leg swelling prior to admission -ultrasound finding on this admission of "Nonocclusive deep venous thrombosis is seen in the right lower extremity extending from the distal superficial femoral vein to the calf." -hospitalist contacted patient's oncologist Dr. Rodriguez in regards to patient's brain cancer, thrombocytopenia, and new ultrasound finding on this admission of "Nonocclusive deep venous thrombosis is seen in the right lower extremity extending from the distal superficial femoral vein to the calf" on 08/13/2020, the assessment at that time was to continue patient on heparin 5000 units q 8 hours instead of full dose systemic anticoagulation in the context of patient's falling platelet counts, patient's refusal of consenting to any blood transfusions if he were to bleed while on systemic anticoagulations, and poor overall manager hospice prognosis of mortality from brain cancer -Dr. Rodriguez reported to hospitalist that in his outpatient discussion with patient that he had discussed hospice care in the future given patient's co- morbidities -Patient and his brother is aware that without systemic anticoagulation that patient's right leg DVT can get worse over time and may cause respiratory distress if he develops pulmonary embolism. However, for various reasons as discussed, patient is not a good candidate for systemic anticoagulation and so if patient develops more thromboembolism, then symptoms to be managed with comfort as the goal -POLST forms with comfort care measures and other tentative interventions were signed by patient and in agreement with his brother by palliative care nurse on 08/14/2020 -disposition is to to transition patient to facility for hospice; case packer notes that possibly patient can go to SNF/physical therapy center and transition to hospice set up by the facility (5) Thrombocytopenia: -outpatient 06/16/20 labs of Hgb 14.7 and platelets 267K -however patient has low platelets on admission of 74K to 62K -platelets 55K on 08/14/2020 but somewhat better to 90K by 08/16/2020 (6) Anemia: -admission Hgb 12.5 and followup Hgb 10.6 -Hgb 10.8 on 08/14/2020, 11.6 on 08/15/2020 (7) NIRU (acute kidney injury): -admission creatinine of 1.78 and after IV fluids is 1.16 -creatinine is 0.79 by 08/14/2020 (8) Abnormal thyroid function test: -outpatient records 12/28/2018 showed normal TSH of 0.89 -admission TSH very low of 0.044, and low total T3 of 0.47, but normal free T4 of 1.21 -these abnormal thyroid labs may reflect overall illness or too much levothyroxine at home, cut back on home dose levothyroxine from 125 mcg daily to 75 mcg daily starting on 08/14/2020 (9) Elevated hemoglobin A1c: -admission HbA1c of 6.8 -no prior documented history of diabetes mellitus -blood glucose could be from use of steroids to prevent vasogenic edema from the brain cancer -because patient transitioning to comfort care measures and hospice, will not aggressively correct blood sugars with insulin at this time (10) PAF (paroxysmal atrial fibrillation): Coronary Artery Disease -continue home dose amiodarone, avoid aspirin because of thrombocytopenia (11) Depression: -continue home dose buproprion, quetiapine (12) Tremor: -continue home dose propanolol Admission and Anticipated Discharge Date Admission Date: August 13, 2020 Subjective -08/18/2020: patient reports some ambulation. denies acute pain as he feels the pain medication changes from 08/17/2020 are helping. remains breathing on room air. no chest pain. no abdomen pain. patient able to eat the meals. denies other complaints case packer to see the patient today on hospital disposition Review of Systems Review of Systems: All systems reviewed & are unremarkable except as noted in Subjective Physical Exam Constitutional: cooperative Eyes: PERRL, conjunctivae normal, anicteric sclerae EOM intact bilaterally ENMT: external ear and nose normal, oropharynx normal Neck: normal visual inspection Respiratory: normal respiratory effort, lungs clear to auscultation Cardiovascular: Rate/Rhythm: regular rate Gastrointestinal (Abdomen): normal bowel sounds, soft, nontender, no hepatosplenomegaly Musculoskeletal: Head/Neck/Chest: normocephalic Extremities: + lower leg abnormality (right leg swollen compared to left) Neurologic: PERRL, EOMI, accommodation nl, no face palsy, no dysarthria Psychiatric: A+Ox3, euthymic affect Results & Data Results & Data ([facility]) Vital Signs (Past 12 Hours) Vital Signs Temp Pulse Resp BP Pulse Ox 08/18/20 07:10 36.6 C 78 16 119/71 95
[2020-08-18] MEDS: QUEtiapine FUMARATE 25 MG TABLET PO SCH (21:38)
[2020-08-18] MEDS: clonazePAM 1 MG TAB PO SCH (21:40)
[2020-08-19] MEDS: LEVOTHYROXINE SODIUM 75 MCG TABLET PO SCH (06:19)
[2020-08-19] MEDS: traMADol HCL 50 MG TABLET PO PRN ×3 (06:22→23:21)
[2020-08-19] MEDS: AMIODARONE 200 MG TAB PO SCH (09:26)
[2020-08-19] MEDS: PANTOprazole 40 MG TAB PO SCH (09:27)
[2020-08-19] MEDS: MULTIVITAMIN TAB PO SCH (09:27)
[2020-08-19] MEDS: buPROPion XL 300 MG TABCR PO SCH (09:27)
[2020-08-19] MEDS: PROPRANOLOL HCL 20 MG TAB PO SCH ×2 (09:27→20:37)
[2020-08-19] MEDS: dexAMETHasone 4 MG TAB PO SCH ×2 (09:27→20:38)
--- NOTE | 2020-08-19 14:03 | Hospitalist Progress Note ---
Date of Service August 19, 2020 Assessment & Plan (1) Deep vein thrombosis (DVT) of right lower extremity: Pt cannot tolerate blood thinners with known metastatic disease in the brain and thrombocytopenia. Consulting Vascular Surgery for consideration of IVC filter. 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 Just finished radiation therapy. Patient will follow up with Dr. Rodriguez and 4 weeks to discuss further treatment options. Continue dexamethasone 4 mg p.o. twice daily. No TAVR planned at this time. (3) Thrombocytopenia: Improved to 128K. No evidence of bleeding. (4) Leukocytosis: Likely related to dexamethasone use. The patient had leukocytosis prior to arrival. He did present with SIRS criteria and reported significant dehy dration secondary to XRT therapy and not keeping up with oral intake at home. He is improved at this time. Persistent leukocytosis again likely secondary to dexamethasone use. (5) Anemia: Likely related to chronic disease. No current bleeding or indication for transfusion. Continue to monitor periodically. (6) NIRU (acute kidney injury): Admission criteria 1.78 has improved after IV fluid resuscitation and acute kidney injury has resolved. He is currently at baseline renal function. (7) Elevated hemoglobin A1c: -admission HbA1c of 6.8 -no prior documented history of diabetes mellitus -blood glucose could be from use of steroids to prevent vasogenic edema from the brain cancer -Follow as outpatient. (8) PAF (paroxysmal atrial fibrillation): continue home dose amiodarone, avoid aspirin because of thrombocytopenia (9) Depression: -continue home dose buproprion, quetiapine. Pristiq is a nonformulary medication. Discussed with the patient that his brother will need to bring it. Verbalized understanding with intent to comply. (10) Tremor: -continue home dose propanolol (11) DVT prophylaxis: SCDs, chemoprophylaxis contraindicated in setting of brain mets DNR/DNI-goals of care include continuing to follow-up with oncology and explore options for treatment of metastatic melanoma. Disposition-likely to SNF with recent generalized weakness and ambulatory dysfunction. The patient lives alone and has no family to be with him in the short-term. Was awaiting bed at [facility], however, may need to choose a second option. Gayle Lee DO [facility] Hospitalist. Admission and Anticipated Discharge Date Admission Date: August 13, 2020 Subjective 75 yo M with metastatic melanoma including brain mets who presented with RLE DVT. Blood thinners are contraindicated in the setting of thrombocytopenia and brain mets. We discussed the possibility of an IVC filter and he would like to consider this. He reports feeling well today aside from some discomfort in his leg from the swelling, and irritation from not being able to move well enough to get home independently. He is walking with assistance with a walker. Lives alone and has no one to come stay with him temporarily. He is waiting to discuss further treatment options with Dr. Rodriguez, his oncologist in the next few weeks having just finished radiation. He reports not keeping up with PO intake or hydration efforts prior to coming in because the XRT made his taste off. He reports severe dehydration was the cause of his SIRS picture coming in initially, and he feels much better now that this taste issue is improved and after hospital treatment. Denies pain. Review of Systems Review of Systems: All systems reviewed & are unremarkable except as noted in Subjective Physical Exam Physical Exam: CONSTITUTIONAL: WNWD, vitals as above, generally well- appearing EYES: EOMI bilaterally, pupils are round and equal bilaterally, normal conjunctivae ENT: external ear and nose normal, oropharynx clear, mucous membranes are moist. RESPIRATORY: clear to auscultation bilaterally, no crackles, rales or wheezes, normal respiratory effort CARDIOVASCULAR: regular rate and rhythm, S1 and 2 heard without murmurs, gallops or rubs, no JVD, no peripheral edema, RLE slightly more swollen than LLE. GASTROINTESTINAL: normal bowel sounds, soft, nontender, nondistended, no guarding. MUSCULOSKELETAL: generalized weakness, head is normocephalic and atraumatic SKIN: warm and dry NEUROLOGIC: CN 2-12 grossly intact, normal cognition, normal speech, no tremor, no gross focal deficits. PSYCHIATRIC: alert cooperative and oriented to person, place and time. Results & Data Results & Data ([facility]) Medications Administered Current Inpatient Medications Acetaminophen (Acetaminophen 325 Mg Tab) 325 mg PO Q4H PRN PRN Reason: Pain or Fever Stop: 09/12/20 08:50 Last Admin: 08/18/20 00:22 Dose: 325 mg Documented by: Amiodarone HCl (Amiodarone 200 Mg Tab) 200 mg PO DAILY HUDSON Stop: 09/12/20 08:59 Last Admin: 08/19/20 09:26 Dose: 200 mg Documented by: Bupropion HCl (Bupropion Xl 300 Mg Tabcr) 300 mg PO DAILY HUDSON Stop: 09/12/20 08:59 Last Admin: 08/19/20 09:27 Dose: 300 mg Documented by: Clonazepam (Clonazepam 1 Mg Tab) 1 mg PO HS HUDSON Stop: 09/12/20 05:21 Last Admin: 08/18/20 21:40 Dose: 1 mg Documented by: Dexamethasone (Dexamethasone 4 Mg Tab) 4 mg PO BID HUDSON Stop: 09/12/20 08:59 Last Admin: 08/19/20 09:27 Dose: 4 mg Documented by: Fluticasone Propionate (Fluticasone Propionate Na Spr 16 Gm Btl) 2 sprays NA DAILY PRN PRN Reason: dryness Stop: 09/12/20 05:21 Promethazine HCl 12.5 mg/ (Sodium Chloride) 50.5 mls @ 202 mls/hr IV Q6H PRN PRN Reason: Nausea And Vomiting Stop: 09/12/20 05:21 Levothyroxine Sodium (Levothyroxine Sodium 75 Mcg Tablet) 75 mcg PO DAILYBB HUDSON Stop: 09/13/20 06:29 Last Admin: 08/19/20 06:19 Dose: 75 mcg Documented by: Miscellaneous (Pristiq~Order Awaiting Action) 1 ea N/A QS HUDSON Stop: 09/12/20 07:59 Last Admin: 08/19/20 06:04 Dose: Not Given Documented by: Multivitamins (Multivitamin Tab) 1 tab PO DAILY HUDSON Stop: 09/12/20 08:59 Last Admin: 08/19/20 09:27 Dose: 1 tab Documented by: Pantoprazole Sodium (Pantoprazole 40 Mg Tab) 40 mg PO DAILY HUDSON Stop: 09/12/20 08:59 Last Admin: 08/19/20 09:27 Dose: 40 mg Documented by: Propranolol HCl (Propranolol Hcl 20 Mg Tab) 60 mg PO BID HUDSON Stop: 09/12/20 08:59 Last Admin: 08/19/20 09:27 Dose: 60 mg Documented by: Quetiapine Fumarate (Quetiapine Fumarate 25 Mg Tablet) 50 mg PO HS HUDSON Stop: 09/12/20 20:59 Last Admin: 08/18/20 21:38 Dose: 50 mg Documented by: Tramadol HCl (Tramadol Hcl 50 Mg Tablet) 25 mg PO Q4H PRN PRN Reason: moderate Pain Stop: 09/16/20 11:17 Last Admin: 08/19/20 11:51 Dose: 25 mg Documented by:
[2020-08-19 14:44] LABS: Hematocrit (blood only) 40.9 % (42-52); Hemoglobin 13.5 g/dL (14.0-18.0); Mean Corpuscular Hemoglobin 31.8 pg (25-34); Mean Corpuscular Volume 96.2 fL (80-100); Mean Platelet Volume 9.6 fL (7.4-10.4); Platelet Count 128 K/uL (130-400); RDW Coefficient of Variation 14.4 % (11.5-14.5); RDW Standard Deviation 49.6 fL (36.4-46.3); Red Blood Count 4.25 M/uL (4.7-6.1); White Blood Count 15.92 K/uL (4.8-10.8)
[2020-08-19 15:05] LABS: Basophils # (auto) 0.02 K/uL (0-0.2); Basophils % (auto) 0.1 %; Immature Granulocytes # (auto) 0.97 K/uL (0.00-0.02); Immature Granulocytes % (auto) 6.1 %; Lymphocytes # (auto) 1.27 K/uL (1.2-3.4); Monocytes # (auto) 0.26 K/uL (0.11-0.59); Monocytes % (auto) 1.6 %; Neutrophils % (auto) 84.2 %
[2020-08-19 15:07] LABS: BUN Creatinine Ratio 30.1 (10-20); Calcium 8.5 mg/dl (8.5-10.1); Est GFR (African American) 78.6; Est GFR (Non-African American) 67.8; Magnesium 2.3 mg/dl (1.8-2.4); Potassium 4.8 mmol/L (3.5-5.1)
[2020-08-19 20:28] LABS: Appearance Urine Clear (Clear); Bacteria Urine Automated Negative (Negative); Bilirubin Urine Negative (Negative); Blood Urine 3+ (Negative); Color Urine Yellow; Epithelial Cell Urine Auto >30 /lpf (0-5); Glucose Urine UA 3+ (Negative); Ketones Urine Negative (Negative); Leukocyte Esterase Urine 1+ (Negative); Nitrite Urine Negative (Negative); Protein Urine Negative (Negative); RBC Urine Automated >30 /hpf (0-4); Specific Gravity Urine 1.028 (1.000-1.030); Urobilinogen Urine Negative (Negative); WBC Urine Automated >30 /hpf (0-5)
[2020-08-19] MEDS: clonazePAM 1 MG TAB PO SCH (20:37)
[2020-08-19] MEDS: QUEtiapine FUMARATE 25 MG TABLET PO SCH (20:38)
[2020-08-20] MEDS: LEVOTHYROXINE SODIUM 75 MCG TABLET PO SCH (05:52)
[2020-08-20] MEDS: traMADol HCL 50 MG TABLET PO PRN ×2 (05:59→15:34)
[2020-08-20] MEDS: PANTOprazole 40 MG TAB PO SCH (08:39)
[2020-08-20] MEDS: AMIODARONE 200 MG TAB PO SCH (08:39)
[2020-08-20] MEDS: dexAMETHasone 4 MG TAB PO SCH ×2 (08:39→20:48)
[2020-08-20] MEDS: buPROPion XL 300 MG TABCR PO SCH (08:40)
[2020-08-20] MEDS: PROPRANOLOL HCL 20 MG TAB PO SCH ×2 (08:40→20:47)
[2020-08-20] MEDS: MULTIVITAMIN TAB PO SCH (08:40)
[2020-08-20] MEDS: clonazePAM 0.5 MG TAB PO SCH (08:41)
--- NOTE | 2020-08-20 11:29 | Urology Consultation ---
Date of Consultation August 20, 2020 Assessment & Plan (1) Gross hematuria: 75 year-old male patient, with multiple comorbidities, admitted with weakness, metastatic melanoma, DVT, and acute NIRU. -Urology consulted for prior episode of gross hematuria, now resolved. -Plan of care reviewed with Dr. Chau. -Patient afebrile, creatinine improved. -Preliminary urine culture no growth, await final. -Discussed with patient hematuria work-up including CT abd/pelvis, urine cytology, and outpatient cystoscopy. -He does elect and feels comfortable to proceed with obtaining CT urogram and urine cytology, ordered today. -Continue with supportive care and await imaging results. -Will continue to follow while inpatient. History of Present Illness Reason for Consultation: Gross hematuria Attending Physician: Gayle Lee DO History of Present Illness 75 year-old male patient, with complex past medical history significant for recurrent metastatic melanoma status post surgery, brain mets status post radiation ongoing steroid therapy, Atrial fibrillation, nonobstructive CAD as per records, hypertension, hypothyroidism, mood disorder, admitted with weakness, metastatic melanoma, DVT, and NIRU. Urology consulted for prior history of painless, gross hematuria. Patient does report he followed with [facility] urology many years ago for routine BPH follow-ups. Chart review: Afebrile Labs reviewed from 08/19 - Wbc 15.92 Hgb 13.5 Creatinine 1.06 Blood cultures 08/13 no growth. Urinalysis +3 blood, >30 wbc, >30 rbc, >30 epithelial, negative bacteria, nitrate negative. Urine culture 08/19 preliminary no growth. Patient reports overall, he is feeling better since hospital admission. He was sitting up in his chair at the time of his exam. States roughly 1 week ago, he developed episodes of painless, gross hematuria. Gross hematuria was present for roughly 1 day and then resolved. Denies dysuria. Does have some baseline urinary frequency/urgency. Feels he empties his bladder well. Did require straight cath x1 on 08/13 for 700 cc. Feels he has been voiding well since. Reports some nights he does get up frequently to urinate. Denies bladder pain or pressure. Denies abdominal or flank pain. Does have a history of kidney stone in 1989 requiring lithotripsy. Remote history of smoking. Denies family history of bladder or renal cancer. His father has history of prostate cancer. Currently on ASA therapy. He is not candidate for anticoagulants given history. Denies additional urologic concerns today. Allergies Allergy/AdvReac Type Severity Reaction Status Date / Time No Known Allergies Allergy Unknown Verified 08/13/20 01:23 Home Medications Home Medications Medication Instructions Recorded Confirmed Type nitroglycerin [Nitrostat] 0.4 mg UT UD PRN #0 06/18/08 08/13/20 History amiodarone 200 mg PO DAILY #0 10/02/16 08/13/20 History bupropion HCl [Wellbutrin XL] 300 mg PO DAILY #0 10/02/16 08/13/20 History desvenlafaxine succinate [Pristiq] 100 mg PO QAM #0 10/02/16 08/13/20 History levothyroxine 125 mcg PO DAILY #0 10/02/16 08/13/20 History propranolol [Inderal] 60 mg PO BID #0 10/02/16 08/13/20 History aspirin 325 mg tablet 325 mg PO DAILY 06/26/20 08/13/20 History fluticasone propionate 50 2 spray INTRANASAL DAILY PRN 06/26/20 08/13/20 History mcg/actuation nasal spray,suspension loperamide 2 mg capsule 2 mg PO BID PRN cap 06/26/20 08/13/20 History multivitamin 1 tab PO DAILY 06/26/20 08/13/20 History pantoprazole 40 mg tablet,delayed 40 mg PO DAILY 06/26/20 08/13/20 History release quetiapine 25 mg tablet 50 mg PO HS tab 06/26/20 08/13/20 History tramadol 50 mg tablet 50 mg PO Q6H PRN 06/26/20 08/13/20 History vitamin E 200 unit capsule 400 unit PO DAILY cap 06/26/20 08/13/20 History dexamethasone 4 mg tablet 4 mg PO BID 08/04/20 08/13/20 History clonazepam 1 mg PO HS 08/13/20 08/13/20 History diclofenac sodium 4 g TOPICAL QID 08/13/20 08/13/20 History Patient History Medical History Afib Depression Gastric ulcer Heart disease History of left heart catheterization (LHC) Hypertension Hypothyroidism Incarcerated right inguinal hernia LVH (left ventricular hypertrophy) MDD (major depressive disorder) Osteoarthritis Palliative care encounter Surgical History H/O colonoscopy 2014 H/O hernia repair Late History of lithotripsy Late History of lymph node dissection of axilla 06/17/2017 - Left Axilla Non [place] Node Packet - 09/22 nodes positive for malignant melanoma 08/17/2017 - SLN Dissection History of radical excision of skin lesion 04/27/2020 - Right Upper Back - Malignant Melanoma History of surgery 1979 - Benign tumor removed from back of right knee Family History Mother , Passed age 92 natural causes Skin cancer Father , Passed age 68 of H&N Cancer Prostate cancer, Onset Age: 58 Prostatectomy Brother No problems noted. Other Has no children Social History Smoking Status: Former smoker Smoking End Date: 1983; Hx Alcohol Use: No Hx Substance Use: No Preferred Language: Spanish Communication Ability: Effective Visual Impairment: Limited Hearing Ability: Normal Rn Chemical Dependency Required: No Beliefs That Will Affect Care: None marital status: Single Current Living Situation: Alone Current Living Situation Comment: Lives [facility] [facility] current occupational status: retired current occupation: retired from [employer] at [employer] How many Children do You have: 0 Feels Safe at Home: Yes Safety Concerns: Feels Safe At This Time Childhood Exposure to Second-Hand Smoke: Yes (Father ) caffeine: No during the past year weight has: remained stable Dental Care, Regularly: Yes Assistive Devices: Glasses and Walker Review of Systems Constitutional: no fever and no chills Ear, Nose, Mouth, Throat: no dizziness Respiratory: no cough and no dyspnea Cardiovascular: + edema; no chest pain Gastrointestinal: no abdominal pain, no nausea and no vomiting Genitourinary: + as per Subjective / HPI Musculoskeletal: Left shoulder discomfort Integumentary: as per Subjective / HPI Neurologic: no dizziness Endocrine: + fatigue Hematologic / Lymphatic: as per Subjective / HPI Physical Exam Constitutional: cooperative and comfortable; no acute distress and not ill appearing ENMT: Ears: no hearing impairment Neck: normal visual inspection and trachea midline Respiratory: normal respiratory effort and able to speak in complete sentences; no respiratory distress and no audible wheezes Cardiovascular: Extremities: + edema (Bilateral, right greater than left.); no calf tenderness Gastrointestinal (Abdomen): Inspection/Auscultation: abdomen normal to inspection and + abdomen distended (Mildly) Percussion/Palpation: abdomen soft; abdomen nontender and no guarding Skin: No visible rashes, lesions, or wounds noted. Neurologic: moves all extremities and awake Psychiatric: Orientation: alert, oriented x 3 and cooperative Affect: euthymic affect Genitourinary: no CVA tenderness PG Care Time/CCT Total # of Minutes Spent Total Time Spent with Patient: Total time spent is greater than 50% in coordination of care (as documented) at patient's floor/unit and/or counseling patient: Coding Level of Care Code 99110 Inpt Consult Level 4 Diagnoses Gross hematuria R31.0
[2020-08-20] MEDS ORDERED: IOVERSOL 100ml IV ONE (13:07)
--- NOTE | 2020-08-20 13:54 | CT Scan Report ---
CT UROGRAM CLINICAL HISTORY: Hematuria. COMPARISON STUDY: Abdominal CT dated 10/02/2016. PET/CT dated 06/23/2020. TECHNIQUE: Before and following the IV administration of 94 cc of Optiray 320, CT urogram of the abd omen and pelvis is performed from the lung bases to the proximal femora. Images are reviewed in the a xial, sagittal, and coronal planes. IV contrast was administered without complication. A dose loweri ng technique was utilized adhering to the principles of ALARA. CT DOSE: 1809.00 mGycm FINDINGS: Lung bases: The heart is normal in size and without pericardial effusion. There are coronary artery c alcifications. The lung bases are clear noting bibasilar scarring/atelectasis. There is a small hiata l hernia. Liver: The contrast-enhanced liver is normal in size, contour, and attenuation. There is no intrahepa tic biliary ductal dilatation. The hepatic veins and portal veins are patent. Gallbladder: Unremarkable. Spleen: Normal in size and attenuation. Pancreas: The pancreas is moderately atrophic. A 1.8 cm ovoid nodule in the pancreatic tail seen on i mage #132 is unchanged from multiple prior studies. This is identical in attenuation to the spleen an d likely represents an intrapancreatic splenule. This was not FDG avid on the recent PET examination. Adrenal glands: Unremarkable. Kidneys and ureters: The contrast enhanced kidneys demonstrate mild cortical atrophy and are without hydronephrosis. There are no renal calculi identified on the unenhanced images. The kidneys enhance a nd excrete symmetrically. Bilateral renal cysts measure up to 4.4 cm. Additional subcentimeter cortic al hypodensities also likely represent cysts but are too small for definitive characterization. There is no enhancing renal cortical mass lesion identified. There is no evidence of urothelial lesion wit hin the renal pelvis bilaterally or along the course of either ureter. Abdominal vasculature: A 1.5 cm saccular aneurysm of the abdominal aorta is seen on image #101 is unc hanged from previous. There is moderate atherosclerotic calcification. Bowel: There is mild to moderate colonic diverticulosis without CT evidence of acute diverticulitis. No bowel obstruction is seen. Moderate fecal retention is noted in the colon. The appendix is not vi sualized. Peritoneum: There is no intraperitoneal free air or abdominal ascites. Lymphadenopathy: None. Pelvic viscera: The prostate gland is markedly enlarged and heterogeneous measuring 5.9 cm transverse diameter. There is median lobe hypertrophy. The bladder wall is mildly thickened and trabeculated in dicating chronic outlet obstruction. There are small bilateral fat-containing inguinal hernias. Skeletal structures: The skeletal structures are osteopenic. There is moderate lumbosacral spondylosi s and scoliosis. No lytic or blastic lesions are seen. IMPRESSION: 1. Marked prostatomegaly with evidence of chronic bladder outlet obstruction. 2. Otherwise unremarkable urographic assessment of the kidneys and ureters. 3. Colonic diverticulosis without CT evidence of acute diverticulitis. 4. Additional findings as above. ACT 112: Negative or not required by law. Electronically signed by: Zhang Garcia M.D. 08/20/2020 1:52 PM
--- NOTE | 2020-08-20 14:23 | Palliative Care Progress Note ---
Date of Service August 20, 2020 Assessment & Plan (1) Palliative care encounter: -Patient was sitting upright in his bed in no apparent distress. -Ultimately, the patient has a vascular consult pending for possible IVC filter placement. -The patient is interested in a more aggressive approach to care. -Taran understands and is agreeable to SNF referral placement. The patient did indicated he does NOT want to be transferred to [facility]. -The patient has been accepted at [facility]. Case management working on placement. -Likely life expectancy is months. Continue current treatment plan while hospitalized until placement confirmed. -Palliative Care will sign off at this time, please contact us with any additional needs. -PPS:30% (2) Deep vein thrombosis (DVT) of right lower extremity: (3) Metastatic melanoma: (4) Generalized weakness: (5) Depression: Admission and Anticipated Discharge Date Admission Date: August 13, 2020 Physical Exam Constitutional: cooperative and comfortable Eyes: PERRL, conjunctivae normal, anicteric sclerae Respiratory: normal respiratory effort, lungs clear to auscultation normal respiratory effort Auscultation: + diminished lung sounds Cardiovascular: Heart Sounds: normal S1 and normal S2 Vessels: dorsalis pedis pulses present and radial pulses present Extremities: normal capillary refill, + calf tenderness and + edema (RLE > LLE) Gastrointestinal (Abdomen): normal bowel sounds, soft, nontender, no hepatosplenomegaly Skin: + dry skin, + ecchymosis and + erythema Psychiatric: A+Ox3, euthymic affect PG Care Time/CCT Total # of Minutes Spent Total Time Spent with Patient: Total time spent is greater than 50% in coordination of care (as documented) at patient's floor/unit and/or counseling patient: 35 Coding Level of Care Code 07385 Subseq Hosp Care Lvl 3 Diagnoses Palliative care encounter Z51.5 Deep vein thrombosis (DVT) of right lower extremity I82.401 Metastatic melanoma C79.9 Generalized weakness R53.1 Depression F32.9 Time Spent (min) 35 Time Spent Midlevel Total time spent 35 mintues with > 50% of that time spent assessing the patient, discussing care plan and collaborating with IDT
--- NOTE | 2020-08-20 14:23 | Consultation ---
Date of Consultation August 20, 2020 Assessment & Plan (1) Deep vein thrombosis (DVT) of right lower extremity: Pt with RLE DVT and not on AC d/t risk of bleeding from brain mets. Recommended IVC filter insertion to pt and had long discussion about the procedure. Pt states he would like to think about it overnight and will have staff contact Dr Dalton or myself tomorrow to schedule for TUESDAY if he agrees to procedure. History of Present Illness Reason for Consultation: DVT, eval for IVC filter Attending Physician: Gayle Lee, History of Present Illness 75 yo m with hx of PAF, NIRU, thromboytopenia, and metastatic melanoma, seen in consultation today to discuss IVC filter insertion d/t RLE DVT. Pt with metastasis to brain and high risk of bleed. Noted RLE DVT on venous US done d/t edema. Pt denies hx of DVT in past. Admits edema and discomfort in RLE, as well as back lesions. Denies RODGERS, fever, chills, chest pain, SOB, abd pain N/V, rest pain, claudication, other complaints. Allergies Allergy/AdvReac Type Severity Reaction Status Date / Time No Known Allergies Allergy Unknown Verified 08/13/20 01:23 Home Medications Home Medications Medication Instructions Recorded Confirmed Type nitroglycerin [Nitrostat] 0.4 mg UT UD PRN #0 06/18/08 08/13/20 History amiodarone 200 mg PO DAILY #0 10/02/16 08/13/20 History bupropion HCl [Wellbutrin XL] 300 mg PO DAILY #0 10/02/16 08/13/20 History desvenlafaxine succinate [Pristiq] 100 mg PO QAM #0 10/02/16 08/13/20 History levothyroxine 125 mcg PO DAILY #0 10/02/16 08/13/20 History propranolol [Inderal] 60 mg PO BID #0 10/02/16 08/13/20 History aspirin 325 mg tablet 325 mg PO DAILY 06/26/20 08/13/20 History fluticasone propionate 50 2 spray INTRANASAL DAILY PRN 06/26/20 08/13/20 History mcg/actuation nasal spray,suspension loperamide 2 mg capsule 2 mg PO BID PRN cap 06/26/20 08/13/20 History multivitamin 1 tab PO DAILY 06/26/20 08/13/20 History pantoprazole 40 mg tablet,delayed 40 mg PO DAILY 06/26/20 08/13/20 History release quetiapine 25 mg tablet 50 mg PO HS tab 06/26/20 08/13/20 History tramadol 50 mg tablet 50 mg PO Q6H PRN 06/26/20 08/13/20 History vitamin E 200 unit capsule 400 unit PO DAILY cap 06/26/20 08/13/20 History dexamethasone 4 mg tablet 4 mg PO BID 08/04/20 08/13/20 History clonazepam 1 mg PO HS 08/13/20 08/13/20 History diclofenac sodium 4 g TOPICAL QID 08/13/20 08/13/20 History Patient History Medical History Afib Depression Gastric ulcer Heart disease History of left heart catheterization (LHC) Hypertension Hypothyroidism Incarcerated right inguinal hernia LVH (left ventricular hypertrophy) MDD (major depressive disorder) Osteoarthritis Palliative care encounter Surgical History H/O colonoscopy 2014 H/O hernia repair Late History of lithotripsy Late History of lymph node dissection of axilla 06/17/2017 - Left Axilla Non Cisco Node Packet - 09/22 nodes positive for malignant melanoma 08/17/2017 - SLN Dissection History of radical excision of skin lesion 04/27/2020 - Right Upper Back - Malignant Melanoma History of surgery 1979 - Benign tumor removed from back of right knee Family History Mother , Passed age 92 natural causes Skin cancer Father , Passed age 68 of H&N Cancer Prostate cancer, Onset Age: 58 Prostatectomy Brother No problems noted. Other Has no children Social History Smoking Status: Former smoker Smoking End Date: 1983; Hx Alcohol Use: No Hx Substance Use: No Preferred Language: Ug[place]an Communication Ability: Effective Visual Impairment: Limited Hearing Ability: Normal Marriage And Family Teacher Required: No Beliefs That Will Affect Care: None marital status: Single Current Living Situation: Alone Current Living Situation Comment: Lives in [facility]iary at [place] Residence current occupational status: retired current occupation: retired from [employer] Student at [employer] How many Children do You have: 0 Feels Safe at Home: Yes Safety Concerns: Feels Safe At This Time Childhood Exposure to Second-Hand Smoke: Yes (Father ) caffeine: No during the past year weight has: remained stable Dental Care, Regularly: Yes Assistive Devices: Walker Review of Systems Review of Systems: All systems reviewed & are unremarkable except as noted in HPI & below Physical Exam Constitutional: WD/WN, vitals as above cooperative and comfortable; not in distress Eyes: PERRL, conjunctivae normal, anicteric sclerae ENMT: Ears: no hearing impairment Neck: trachea midline Respiratory: normal respiratory effort, lungs clear to auscultation Auscultation: + diminished lung sounds Cardiovascular: Rate/Rhythm: regular rate and regular rhythm Vessels: posterior tibial pulses present and dorsalis pedis pulses present; + abnormal peripheral pulses Extremities: normal capillary refill and + edema (trace L LE, +2 RLE) Gastrointestinal (Abdomen): normal bowel sounds, soft, nontender, no hepatosplenomegaly Musculoskeletal: no cyanosis or clubbing, extremities motor strength 5/5 Skin: no rashes, warm and dry Neurologic: moves all extremities; no focal motor deficits and not confused Psychiatric: A+Ox3, euthymic affect
--- NOTE | 2020-08-20 17:42 | Hospitalist Progress Note ---
Date of Service August 20, 2020 Assessment & Plan (1) Deep vein thrombosis (DVT) of right lower extremity: Pt cannot tolerate blood thinners with known metastatic disease in the brain and thrombocytopenia. Pt agreeable for IVC filter placement on Tue am per Vascular Surgery team. 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 Just finished radiation therapy. Patient will follow up with Dr. Rodriguez and 4 weeks to discuss further treatment options. Continue dexamethasone 4 mg p.o. twice daily. (3) Thrombocytopenia: Improved to 128K. No evidence of bleeding. (4) Leukocytosis: Likely related to dexamethasone use. The patient had leukocytosis prior to arrival. He did present with SIRS criteria and reported significant dehydration secondary to XRT therapy and not keeping up with oral intake at home. He is improved at this time. Persistent leukocytosis again likely secondary to dexamethasone use. Will recheck labs in am. (5) Anemia: Likely related to chronic disease. No current bleeding or indication for transfusion. Continue to monitor periodically. (6) Elevated hemoglobin A1c: -admission HbA1c of 6.8 -no prior documented history of diabetes mellitus -blood glucose could be from use of steroids to prevent vasogenic edema from the brain cancer -Follow as outpatient. (7) PAF (paroxysmal atrial fibrillation): continue home dose amiodarone, avoid aspirin because of thrombocytopenia (8) Depression: -continue home dose buproprion, quetiapine. Pristiq is a nonformulary medication. Discussed with the patient that his brother will need to bring it. Verbalized understanding with intent to comply. (9) Tremor: -continue home dose propanolol (10) DVT prophylaxis: SCDs, chemoprophylaxis contraindicated in setting of brain mets DNR/DNI-goals of care include continuing to follow-up with oncology and explore options for treatment of metastatic melanoma. Disposition-likely to SNF with recent generalized weakness and ambulatory dysfunction. [facility] on Tuesday after IVC filter placement, discussed with CM and patient. Gayle Lee DO [facility] Hospitalist. Admission and Anticipated Discharge Date Admission Date: August 13, 2020 Subjective some pain in his back where he has cancer but is controlled with medications. Acacia discussed IVC filter Patient agreeable to have this done Tue am Spoke with CM, can go to [facility] later that afternoon. Otherwise no pain, margo PO, no fever or other issues at this time. Review of Systems Review of Systems: All systems reviewed & are unremarkable except as noted in Subjective Physical Exam Physical Exam: CONSTITUTIONAL: WNWD, vitals as above, generally well- appearing EYES: normal conjunctivae ENT: external ear and nose normal, oropharynx clear, mucous membranes are moist. RESPIRATORY: clear to auscultation bilaterally, no crackles, rales or wheezes, normal respiratory effort CARDIOVASCULAR: regular rate and rhythm, S1 and 2 heard without murmurs, gallops or rubs, no JVD, no peripheral edema, RLE slightly more swollen than LLE. GASTROINTESTINAL: normal bowel sounds, soft, nontender, nondistended, no guarding. MUSCULOSKELETAL: generalized weakness, head is normocephalic and atraumatic SKIN: warm and dry NEUROLOGIC: CN 2-12 grossly intact, normal cognition, normal speech, no tremor, no gross focal deficits. PSYCHIATRIC: alert cooperative and oriented to person, place and time. Results & Data Results & Data ([facility]) Laboratory Results Urine 08/19/20 Range/Units 20:05 Urine Color Yellow Urine Appearance Clear (Clear) Urine pH 5.0 (4.5-7.5) Ur Specific Perry 1.028 (1.000-1.030) Urine Protein Negative (Negative) Urine Glucose (UA) 3+ H (Negative) Medications Administered Current Inpatient Medications Acetaminophen (Acetaminophen 325 Mg Tab) 325 mg PO Q4H PRN PRN Reason: Pain or Fever Stop: 09/12/20 08:50 Last Admin: 08/18/20 00:22 Dose: 325 mg Documented by: Amiodarone HCl (Amiodarone 200 Mg Tab) 200 mg PO DAILY [facility] Stop: 09/12/20 08:59 Last Admin: 08/20/20 08:39 Dose: 200 mg Documented by: Bupropion HCl (Bupropion Xl 300 Mg Tabcr) 300 mg PO DAILY [facility] Stop: 09/12/20 08:59 Last Admin: 08/20/20 08:40 Dose: 300 mg Documented by: Clonazepam (Clonazepam 1 Mg Tab) 1 mg PO HS [facility] Stop: 09/12/20 05:21 Last Admin: 08/19/20 20:37 Dose: 1 mg Documented by: Clonazepam (Clonazepam 0.5 Mg Tab) 0.5 mg PO QAM [facility] Stop: 09/19/20 08:59 Last Admin: 08/20/20 08:41 Dose: 0.5 mg Documented by: Desvenlafaxine Succinate (Desvenlafaxine Succinate Er) 1 ea PO QAM [facility] Stop: 09/19/20 08:59 Dexamethasone (Dexamethasone 4 Mg Tab) 4 mg PO BID [facility] Stop: 09/12/20 08:59 Last Admin: 08/20/20 08:39 Dose: 4 mg Documented by: Fluticasone Propionate (Fluticasone Propionate Na Spr 16 Gm Btl) 2 sprays NA DAILY PRN PRN Reason: dryness Stop: 09/12/20 05:21 Promethazine HCl 12.5 mg/ (Sodium Chloride) 50.5 mls @ 202 mls/hr IV Q6H PRN PRN Reason: Nausea And Vomiting Stop: 09/12/20 05:21 Levothyroxine Sodium (Levothyroxine Sodium 75 Mcg Tablet) 75 mcg PO DAILYBB [facility] Stop: 09/13/20 06:29 Last Admin: 08/20/20 05:52 Dose: 75 mcg Documented by: Multivitamins (Multivitamin Tab) 1 tab PO DAILY [facility] Stop: 09/12/20 08:59 Last Admin: 08/20/20 08:40 Dose: 1 tab Documented by: Pantoprazole Sodium (Pantoprazole 40 Mg Tab) 40 mg PO DAILY [facility] Stop: 09/12/20 08:59 Last Admin: 08/20/20 08:39 Dose: 40 mg Documented by: Propranolol HCl (Propranolol Hcl 20 Mg Tab) 60 mg PO BID [facility] Stop: 09/12/20 08:59 Last Admin: 08/20/20 08:40 Dose: 60 mg Documented by: Quetiapine Fumarate (Quetiapine Fumarate 25 Mg Tablet) 50 mg PO HS [facility] Stop: 09/12/20 20:59 Last Admin: 08/19/20 20:38 Dose: 50 mg Documented by: Tramadol HCl (Tramadol Hcl 50 Mg Tablet) 25 mg PO Q4H PRN PRN Reason: moderate Pain Stop: 09/16/20 11:17 Last Admin: 08/20/20 15:34 Dose: 25 mg Documented by:
[2020-08-20] MEDS: clonazePAM 1 MG TAB PO SCH (20:47)
[2020-08-20] MEDS: QUEtiapine FUMARATE 25 MG TABLET PO SCH (20:48)
[2020-08-21] MEDS: traMADol HCL 50 MG TABLET PO PRN ×3 (00:34→19:19)
[2020-08-21] MEDS: LEVOTHYROXINE SODIUM 75 MCG TABLET PO SCH (05:34)
[2020-08-21 06:03] LABS: Hematocrit (blood only) 38.7 % (42-52); Hemoglobin 12.9 g/dL (14.0-18.0); Mean Corpuscular Hemoglobin 31.9 pg (25-34); Mean Corpuscular Hgb Conc 33.3 g/dL (32-36); Mean Corpuscular Volume 95.6 fL (80-100); Mean Platelet Volume 9.3 fL (7.4-10.4); Platelet Count 116 K/uL (130-400); RDW Coefficient of Variation 14.5 % (11.5-14.5); RDW Standard Deviation 49.6 fL (36.4-46.3); Red Blood Count 4.05 M/uL (4.7-6.1); White Blood Count 14.39 K/uL (4.8-10.8)
[2020-08-21 06:32] LABS: BUN Creatinine Ratio 31.6 (10-20); Calcium 8.3 mg/dl (8.5-10.1); Est GFR (African American) 98.1; Est GFR (Non-African American) 84.6; Potassium 4.6 mmol/L (3.5-5.1)
[2020-08-21] MEDS: AMIODARONE 200 MG TAB PO SCH (09:11)
[2020-08-21] MEDS: PROPRANOLOL HCL 20 MG TAB PO SCH ×2 (09:11→20:22)
[2020-08-21] MEDS: buPROPion XL 300 MG TABCR PO SCH (09:11)
[2020-08-21] MEDS: DESVENLAFAXINE SUCCINATE PO SCH (09:11)
[2020-08-21] MEDS: dexAMETHasone 4 MG TAB PO SCH ×2 (09:11→20:22)
[2020-08-21] MEDS: PANTOprazole 40 MG TAB PO SCH (09:11)
[2020-08-21] MEDS: MULTIVITAMIN TAB PO SCH (09:11)
[2020-08-21] MEDS: clonazePAM 0.5 MG TAB PO SCH (09:17)
--- NOTE | 2020-08-21 10:15 | Communication Note ---
Date of Service: August 21, 2020 Patient is agreeable to the insertion of a vena cava filter. This will be done in the am tomorrow. I have discussed the risks options and benefits of the procedure with the patient. The patient understands the risks options and benefits and agrees to the procedure.
--- NOTE | 2020-08-21 11:06 | Urology Progress Note ---
Date of Service August 21, 2020 Assessment & Plan (1) Gross hematuria: 75 year-old male patient, with multiple comorbidities, admitted with weakness, metastatic melanoma, DVT, and acute NIRU. -Urology consulted for prior episode of gross hematuria. -No further episodes of hematuria, now resolved. -Patient afebrile, white count and creatinine improved. -CT abd/pelvis reviewed with patient, notable for prostatomegaly with chronic bladder outlet obstruction. -Plan to check post void residual to ensure he is not retaining urine. -Preliminary urine culture no growth, await final and recommend treating if indicated. -Urine cytology negative for high grade urothelial carcinoma but noted possible Mae, fungal urine culture ordered. -Discussed adding Tamsulosin to medication regimen to help with urinary symptoms, he would like to think about this. -Also discussed outpatient cystoscopy to complete hematuria work-up, he also wants to consider this. -Will plan to continue to follow while inpatient. Agree w plan C Isac Admission and Anticipated Discharge Date Admission Date: August 13, 2020 Subjective Patient examined, alert and appears comfortable. Reports he slept well overnight. Denies additional episodes of hematuria. Denies dysuria. Does have some urinary frequency/urgency, mostly at night. Denies abdominal or flank pain. Denies nausea or vomiting. Denies fevers or chills. He is unsure if he has ever taken Tamsulosin in the past. Does not have any dizziness/lightheadedness. Chart review: Afebrile Wbc 14.39 Hgb 12.9 Creatinine 0.85 Preliminary urine culture no growth. Urine cytology - numerous neutrophils are present, in addition to abundant fungal hyphae possibly representing Mae species. CT abd/pelvis with/without contrast - Marked prostatomegaly with evidence of chronic bladder outlet obstruction. Otherwise unremarkable urographic assessment of the kidneys and ureters. Denies additional urologic concerns today. Review of Systems Constitutional: as per Subjective / HPI; no fever and no chills Gastrointestinal: as per Subjective / HPI; no nausea and no vomiting Genitourinary: + as per Subjective / HPI Neurologic: no dizziness Physical Exam Constitutional: well developed and well nourished; no acute distress and not ill appearing Respiratory: normal respiratory effort and able to speak in complete sentences; no respiratory distress and no audible wheezes Gastrointestinal (Abdomen): Inspection/Auscultation: abdomen normal to inspection and + abdomen distended (Mildly distended) Percussion/Palpation: abdomen soft; abdomen nontender and no guarding Psychiatric: Orientation: alert, oriented x 3 and cooperative Affect: euthymic affect Genitourinary: no CVA tenderness PG Care Time/CCT Total # of Minutes Spent Total Time Spent with Patient: Total time spent is greater than 50% in coordination of care (as documented) at patient's floor/unit and/or counseling patient: Coding Level of Care Code 16806 Subseq Hosp Care Lvl 2 Diagnoses Gross hematuria R31.0
[2020-08-21] MEDS: ACETAMINOPHEN 500 MG TAB PO SCH ×2 (13:59→20:22)
--- NOTE | 2020-08-21 17:47 | Hospitalist Progress Note ---
Date of Service August 21, 2020 Assessment & Plan (1) Deep vein thrombosis (DVT) of right lower extremity: Pt cannot tolerate blood thinners with known metastatic disease in the brain and thrombocytopenia. Pt agreeable for IVC filter placement on Tue am per Vascular Surgery team. 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 Just finished radiation therapy. Patient will follow up with Dr. Rodriguez and 4 weeks to discuss further treatment options. Continue dexamethasone 4 mg p.o. twice daily. Scheduled APAP and PRN Tramadol to help with pain. (3) Thrombocytopenia: Improved- No evidence of bleeding. (4) Leukocytosis: Likely related to dexamethasone use. The patient had leukocytosis prior to arrival. He did present with SIRS criteria and reported significant dehydration secondary to XRT therapy and not keeping up with oral intake at home. He is improved at this time. Persistent leukocytosis again likely secondary to dexamethasone use but htis is improved. (5) Anemia: Likely related to chronic disease. No current bleeding or indication for transfusion. Continue to monitor periodically. (6) Elevated hemoglobin A1c: -admission HbA1c of 6.8 -no prior documented history of diabetes mellitus -blood glucose could be from use of steroids to prevent vasogenic edema from the brain cancer -Follow as outpatient. May consider oral agent at discharge. (7) PAF (paroxysmal atrial fibrillation): continue home dose amiodarone, avoid aspirin because of thrombocytopenia and brain mets. (8) Depression: -continue home dose buproprion, quetiapine and Pristiq (9) Tremor: -continue home dose propanolol (10) DVT prophylaxis: SCDs, chemoprophylaxis contraindicated in setting of brain mets DNR/DNI-goals of care include continuing to follow-up with oncology and explore options for treatment of metastatic melanoma. Disposition-likely to SNF with recent generalized weakness and ambulatory dysfunction. [facility] on Tuesday after IVC filter placement, discussed with CM and patient. Gayle Lee DO [facility] Hospitalist. Admission and Anticipated Discharge Date Admission Date: August 13, 2020 Subjective state didn't sleep well 2/2/ pain in his back We added scheduled APAP Talked about Tramadol and APAP together Krystle saw him and will do IVC filter in am. NPO order in place. No change in RLE leg discomfort and swelling. Not very bothersome to patient who keeps it elevated. Review of Systems Review of Systems: All systems reviewed & are unremarkable except as noted in Subjective Physical Exam Physical Exam: CONSTITUTIONAL: WNWD, vitals as above, generally well- appearing EYES: normal conjunctivae ENT: external ear and nose normal, oropharynx clear, mucous membranes are moist. RESPIRATORY: clear to auscultation bilaterally, no crackles, rales or wheezes, normal respiratory effort CARDIOVASCULAR: regular rate and rhythm, S1 and 2 heard without murmurs, gallops or rubs, no JVD, no peripheral edema, RLE slightly more swollen than LLE. GASTROINTESTINAL: normal bowel sounds, soft, nontender, nondistended, no guarding. MUSCULOSKELETAL: generalized weakness, head is normocephalic and atraumatic SKIN: warm and dry NEUROLOGIC: CN 2-12 grossly intact, normal cognition, normal speech, no tremor, no gross focal deficits. PSYCHIATRIC: alert cooperative and oriented to person, place and time. Results & Data Results & Data ([facility]) Laboratory Results Short CBC 08/21/20 Range/Units 05:43 WBC 14.39 H (4.8-10.8) K/uL Hgb 12.9 L (14.0-18.0) g/dL Hct 38.7 L (42-52) % Plt Count 116 L (130-400) K/uL BMP 08/21/20 05:43 Sodium 136 Potassium 4.6 Chloride 102 Carbon Dioxide 28 BUN 27 H Creatinine 0.85 Glucose 192 H Calcium 8.3 L Medications Administered Current Inpatient Medications Acetaminophen (Acetaminophen 500 Mg Tab) 1,000 mg PO Q8H [facility] Stop: 09/20/20 13:14 Last Admin: 08/21/20 13:59 Dose: 1,000 mg Documented by: Amiodarone HCl (Amiodarone 200 Mg Tab) 200 mg PO DAILY [facility] Stop: 09/12/20 08:59 Last Admin: 08/21/20 09:11 Dose: 200 mg Documented by: Bupropion HCl (Bupropion Xl 300 Mg Tabcr) 300 mg PO DAILY [facility] Stop: 09/12/20 08:59 Last Admin: 08/21/20 09:11 Dose: 300 mg Documented by: Clonazepam (Clonazepam 1 Mg Tab) 1 mg PO HS [facility] Stop: 09/12/20 05:21 Last Admin: 08/20/20 20:47 Dose: 1 mg Documented by: Clonazepam (Clonazepam 0.5 Mg Tab) 0.5 mg PO QAM [facility] Stop: 09/19/20 08:59 Last Admin: 08/21/20 09:17 Dose: 0.5 mg Documented by: Desvenlafaxine Succinate (Desvenlafaxine Succinate Er) 1 ea PO QAM [facility] Stop: 09/19/20 08:59 Last Admin: 08/21/20 09:11 Dose: 1 ea Documented by: Dexamethasone (Dexamethasone 4 Mg Tab) 4 mg PO BID [facility] Stop: 09/12/20 08:59 Last Admin: 08/21/20 09:11 Dose: 4 mg Documented by: Fluticasone Propionate (Fluticasone Propionate Na Spr 16 Gm Btl) 2 sprays NA DAILY PRN PRN Reason: dryness Stop: 09/12/20 05:21 Promethazine HCl 12.5 mg/ (Sodium Chloride) 50.5 mls @ 202 mls/hr IV Q6H PRN PRN Reason: Nausea And Vomiting Stop: 09/12/20 05:21 Cefazolin Sodium (Ancef 2000mg) 2,000 mg in 15 mls @ 3.75 mls/min IV PREOP [facility] Stop: 08/23/20 05:59 Levothyroxine Sodium (Levothyroxine Sodium 75 Mcg Tablet) 75 mcg PO DAILYBB [facility] Stop: 09/13/20 06:29 Last Admin: 08/21/20 05:34 Dose: 75 mcg Documented by: Multivitamins (Multivitamin Tab) 1 tab PO DAILY [facility] Stop: 09/12/20 08:59 Last Admin: 08/21/20 09:11 Dose: 1 tab Documented by: Pantoprazole Sodium (Pantoprazole 40 Mg Tab) 40 mg PO DAILY [facility] Stop: 09/12/20 08:59 Last Admin: 08/21/20 09:11 Dose: 40 mg Documented by: Propranolol HCl (Propranolol Hcl 20 Mg Tab) 60 mg PO BID [facility] Stop: 09/12/20 08:59 Last Admin: 08/21/20 09:11 Dose: 60 mg Documented by: Quetiapine Fumarate (Quetiapine Fumarate 25 Mg Tablet) 50 mg PO HS [facility] Stop: 09/12/20 20:59 Last Admin: 08/20/20 20:48 Dose: 50 mg Documented by: Tramadol HCl (Tramadol Hcl 50 Mg Tablet) 50 mg PO Q4H PRN PRN Reason: moderate Pain Stop: 09/16/20 11:17 Last Admin: 08/21/20 05:35 Dose: 50 mg Documented by:
[2020-08-21] MEDS: clonazePAM 1 MG TAB PO SCH (20:22)
[2020-08-21] MEDS: QUEtiapine FUMARATE 25 MG TABLET PO SCH (20:22)
[2020-08-22] MEDS: LEVOTHYROXINE SODIUM 75 MCG TABLET PO SCH (05:45)
[2020-08-22] MEDS: ACETAMINOPHEN 500 MG TAB PO SCH ×3 (05:45→20:42)
[2020-08-22] MEDS ORDERED: ceFAZolin 2000MG 2,000 MG/15 ML SYR IV SCH (06:00)
--- NOTE | 2020-08-22 07:46 | History & Physical Bridge Note ---
Date of Service August 22, 2020 History & Physical Bridge Note Patient for insertion of vena cava filter. I have discussed the risks options and benefits of the procedure with the patient. The patient understands the risks options and benefits and agrees to the procedure. I have examined the patient, reviewed the History & Physical and in the interval since the performance of the History & Physical I have noted the following changes of clinical significance: no changes noted
[2020-08-22] MEDS: dexAMETHasone 4 MG TAB PO SCH ×2 (07:56→20:43)
[2020-08-22] MEDS: AMIODARONE 200 MG TAB PO SCH (07:56)
[2020-08-22] MEDS: DESVENLAFAXINE SUCCINATE PO SCH (07:56)
[2020-08-22] MEDS: PANTOprazole 40 MG TAB PO SCH (07:56)
[2020-08-22] MEDS: buPROPion XL 300 MG TABCR PO SCH (07:56)
[2020-08-22] MEDS: MULTIVITAMIN TAB PO SCH (07:57)
[2020-08-22] MEDS: PROPRANOLOL HCL 20 MG TAB PO SCH ×2 (07:57→20:43)
[2020-08-22] MEDS: clonazePAM 0.5 MG TAB PO SCH (07:59)
[2020-08-22] MEDS ORDERED: SODIUM CHLORIDE 0.9% 500 ML IV SCH (08:45)
[2020-08-22] MEDS ORDERED: fentaNYL citrate 100 MCG/2 ML VIAL ONE (11:27)
[2020-08-22] MEDS ORDERED: MIDAZOLAM HCL 1 MG/ML 2ML VIAL ONE (11:28)
[2020-08-22] MEDS ORDERED: LIDOCAINE HCL 1% 20 ML VIAL IV ONE (12:07)
[2020-08-22] MEDS ORDERED: VISIPAQUE IV PRN (12:07)
--- NOTE | 2020-08-22 12:07 | Pre Anesthesia Assessment ---
Date of Service August 22, 2020 Pre Sedation Assessment Vital Signs Temp Pulse Pulse Resp BP BP Pulse Ox 08/22/20 11:58 66 15 138/76 99 08/22/20 11:56 68 14 139/77 98 08/22/20 10:36 36.6 C 70 16 113/66 94 08/22/20 08:26 36.5 C 68 16 143/88 H 97 08/22/20 08:01 70 18 126/78 96 Cardiovascular RRR, no murmur, no edema Respiratory normal respiratory effort, lungs clear to auscultation Pre-Sedation Airway Assessment Smoking Status: Former smoker Hx Sleep Apnea: No Short, Thick Neck: No Thyromental Distance: > or= 3.5 Finger Breadths Oral Cavity: + WNL Mallampati Class: II ASA: ASA3 NPO Status Date of Last Intake of Fluids: 08/22/20 Time of Last Intake of Fluids: 06:00 Date of Last Intake of Solid Food: 08/21/20 Time of Last Intake of Solid Foods: 21:00 Procedure Planning Contraindications for Sedation: none Current Medications Reviewed: Yes Notes The planned sedation has been discussed with the patient. Informed Consent was obtained. I have identified the patient, determined the appropriateness of sedation and have assessed the patient immediately prior to the procedure. All medicine(s) and interventions are by my order.
--- NOTE | 2020-08-22 12:12 | Operative Report ---
Post Operative Report Pre & Post Diagnosis Operation Date: 08/22/20 09:10 Pre-Op Diagnosis: Deep Vein Thrombosis, Contraindication to Anticoagulation Post-Op Diagnosis: Deep Vein Thrombosis, Contraindication to Anticoagulation I identified the patient and participated in the time-out.: Yes Procedure Operation Date: 08/22/20 09:10 Actual Procedures p Inferior Vena Cava Filter Placement Right Femoral Approach, Ultrasound Localization to Right Femoral Artery, Fluoroscopy for Confirmation, Moderate Sedation [id number] 1213(Right) - Gil Dalton MD Surgeon Gil Dalton MD Postal Inspector none Estimated Blood Loss 0 Findings Consistent with Post-Op Diagnosis Specimens none Anesthesia Type RN Sedation Complications none Disposition Accompanied Patient To Recovery: No Disposition: Recovery Room Indications This is a 75-year-old gentleman with acute deep venous thrombosis and contraindications for anticoagulation due to cerebral metastases. Filter was recommended. I have discussed the risks options and benefits of the procedure with the patient. The patient understands the risks options and benefits and agrees to the procedure. Description of Procedure The patient was brought to the angio suite and placed in the supine position. The patient was identified and a timeout performed. The right groin was prepped and draped in the usual fashion. The right femoral vein was located with ultrasound. It was patent, compressed easily, and had no filling defects. The vein was then punctured under ultrasound visualization. A guidewire was then passed centrally into the inferior vena cava under fluoroscopic guidance. The puncture site was then dilated and the filter sheath inserted. It was passed to the infra renal vena cava. A venacavagram was done which showed no cava clot and an acceptable size. The renal veins were identified. The filter was then passed through the sheath and deployed in the infra renal vena cava in an upright position. Satisfied with the positioning of the filter, the sheath was removed. Pressure was applied to the puncture site. Adequate hemostasis was obtained and a sterile dressing was applied. The patient left the operation room in satisfactory condition and tolerated the procedure well. All needle and sponge counts were correct at the end of the procedure. I attest to the content of the Intraoperative Record and any orders documented therein. Any exceptions are noted below.
[2020-08-22] MEDS ORDERED: LIDOCAINE HCL 1% 20 ML VIAL INJ ONE (12:15)
--- NOTE | 2020-08-22 12:15 | Post Anesthesia Assessment ---
Date of Service August 22, 2020 Post Sedation Assessment Vital Signs Temp Pulse Pulse Resp BP BP Pulse Ox 08/22/20 12:08 69 16 118/77 98 08/22/20 12:03 68 16 133/79 99 08/22/20 11:58 66 15 138/76 99 08/22/20 11:56 68 14 139/77 98 08/22/20 10:36 36.6 C 70 16 113/66 94 08/22/20 08:26 36.5 C 68 16 143/88 H 97 08/22/20 08:01 70 18 126/78 96 Recovery Score Activity: Moves 4 extremities Respiration: Deep Breath/Cough Circulation: +/-20% PreAnes Value Consciousness: Fully Awake Oxygen Saturation: > 92% On Room Air Post Anesthesia Score: 10 Discharge Sedation Level of Care: Fast Track Phase II Post Sedation Plan On clinical assessment, the patient appears to have tolerated the sedation without complications. Patient is recovering as anticipated. Patient will continue to be monitored by nursing and may be discharged when sedation discharge criteria are met per below protocol. Upon Completions of procedure up to 15 minutes continue every 5 minute vital signs and the P.A.R. score; then discharge to a Phase I or Fast Track to Phase II per the following guidelines: * Discharge Patient to appropriate Phase II area if PAR is 8 or greater or return to pre- procedure baseline. The post - procedure orders will be as directed. * If PAR score is less than 8 or not return to pre-procedure baseline then patient will follow Phase I monitoring till PAR is reached for Phase II. The Phase I may be done in procedure room or may call to secure a Phase I area. * If naloxone or flumazenil are used for reversal, hold in Phase I for continued monitoring from when last reversal dose was given for a minimum of 60 minutes or longer pending the nurse and/or physician discretion of patient condition before discharge to Phase II. Please call the Sedation Physician to re-evaluate and complete post-note for discharge to Phase II area. Do NOT discharge from procedure sedation or Phase 1 until post- sedation evaluation note is complete by procedure /sedation MD Sedation Discharge Instructions to be given to the patient at discharge to home.
[2020-08-22] MEDS: traMADol HCL 50 MG TABLET PO PRN ×2 (13:03→20:42)
--- NOTE | 2020-08-22 13:14 | Urology Progress Note ---
Date of Service August 22, 2020 Assessment & Plan (1) Gross hematuria: 75 yo M patient, with multiple comorbidities, admitted with weakness, metastatic melanoma, DVT, and acute NIRU. - Urology consulted for prior episode of gross hematuria. - No recurrent hematuria. - Urine cytology negative for high grade urothelial carcinoma. - CT abd/pelvis notable for prostatomegaly with chronic bladder outlet obstruction. - Encourage by low PVR this morning - 19 mL. - Final urine culture showed Mae dubliniensis - can treat if becomes symptomatic. - Fungal culture pending - can treat if indicated. - Recommend start Tamsulosin. Use and side effects reviewed. - Will arrange outpatient follow-up with our service for cystoscopy to complete hematuria work-up. Thank you for allowing us to participate in the acute care of Mr. Negron. Please reconsult us with additional questions, concerns or changes in patient status. Admission and Anticipated Discharge Date Admission Date: August 13, 2020 Subjective Patient examined, alert and appears comfortable. Offers no complaints at this time. Recently returned to room from IVC filter placement by Dr. Dalton. Denies dysuria or recurrent gross hematuria. Feels he is emptying bladder. Per chart review, PVR this AM was 19 mL after voiding 400 mL. Denies abdominal, flank pain, or suprapubic pain. Denies nausea or vomiting. Denies fevers or chills. Chart review: Afebrile. No new labs today. Urine culture - Mae dubliniensis. Fungal culture pending. Denies additional concerns today. Review of Systems Constitutional: as per Subjective / HPI Gastrointestinal: as per Subjective / HPI Genitourinary: + as per Subjective / HPI Physical Exam Constitutional: well developed and well nourished; no acute distress and not ill appearing Neck: normal visual inspection Respiratory: normal respiratory effort and able to speak in complete sentences; no respiratory distress and no labored breathing Cardiovascular: Extremities: no pedal edema Gastrointestinal (Abdomen): Inspection/Auscultation: abdomen normal to inspection; abdomen not distended Percussion/Palpation: abdomen soft; abdomen nontender and no guarding Musculoskeletal: Head/Neck/Chest: normocephalic and head atraumatic Extremities: extremities normal to inspection Skin: warm and dry Neurologic: moves all extremities and awake Psychiatric: A+Ox3, euthymic affect Genitourinary: no CVA tenderness Results & Data ([facility]) Vital Signs (Past 12 Hours) Vital Signs Temp Pulse Pulse Resp BP BP Pulse Ox 08/22/20 13:06 76 18 110/69 96 08/22/20 12:25 36.5 C 74 18 136/77 95 08/22/20 12:13 74 16 117/73 95 08/22/20 12:08 69 16 118/77 98 08/22/20 12:03 68 16 133/79 99 08/22/20 11:58 66 15 138/76 99 08/22/20 11:56 68 14 139/77 98 08/22/20 10:36 36.6 C 70 16 113/66 94 08/22/20 08:26 36.5 C 68 16 143/88 H 97 08/22/20 08:01 70 18 126/78 96 PG Care Time/CCT Total # of Minutes Spent Total Time Spent with Patient: Total time spent is greater than 50% in coordination of care (as documented) at patient's floor/unit and/or counseling patient: Coding Level of Care Code 22319 Subseq Hosp Care Lvl 2 Diagnoses Gross hematuria R31.0
--- NOTE | 2020-08-22 17:52 | Hospitalist Progress Note ---
Date of Service August 22, 2020 Assessment & Plan (1) Deep vein thrombosis (DVT) of right lower extremity: Pt cannot tolerate blood thinners with known metastatic disease in the brain and thrombocytopenia. IVC filter placed today. 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 Just finished radiation therapy. Patient will follow up with Dr. Rodriguez and 4 weeks to discuss further treatment options. Continue dexamethasone 4 mg p.o. twice daily. Scheduled APAP and PRN Tramadol to help with pain, which is working per patient report. (3) Thrombocytopenia: Improved- No evidence of bleeding. (4) Leukocytosis: Likely related to dexamethasone use-improved. The patient had leukocytosis prior to arrival. He did present with SIRS criteria and reported significant dehydration secondary to XRT therapy and not keeping up with oral intake at home. He is improved at this time. Persistent leukocytosis again likely secondary to dexamethasone use but this is improved. (5) Anemia: Likely related to chronic disease. No current bleeding or indication for transfusion. Continue to monitor periodically. (6) Elevated hemoglobin A1c: -admission HbA1c of 6.8 -no prior documented history of diabetes mellitus -blood glucose could be from use of steroids to prevent vasogenic edema from the brain cancer -Follow as outpatient. May consider oral agent at discharge. (7) PAF (paroxysmal atrial fibrillation): continue home dose amiodarone, avoid aspirin because of thrombocytopenia and brain mets. (8) Depression: -continue home dose buproprion, quetiapine and Pristiq (9) Tremor: -continue home dose propanolol (10) DVT prophylaxis: SCDs, chemoprophylaxis contraindicated in setting of brain mets DNR/DNI-goals of care include continuing to follow-up with oncology and explore options for treatment of metastatic melanoma. Disposition-to [facility] in am. Gayle Lee DO [facility] Hospitalist. Admission and Anticipated Discharge Date Admission Date: August 13, 2020 Subjective s/p IVC filter today doing well op site looks good patient is concerned he may have issues overnight and would like to stay for monitoring overnight Review of Systems Review of Systems: All systems reviewed & are unremarkable except as noted in Subjective Physical Exam Physical Exam: CONSTITUTIONAL: WNWD, vitals as above, generally well- appearing EYES: normal conjunctivae ENT: external ear and nose normal, oropharynx clear, mucous membranes are moist. RESPIRATORY: clear to auscultation bilaterally, no crackles, rales or wheezes, normal respiratory effort CARDIOVASCULAR: regular rate and rhythm, S1 and 2 heard without murmurs, gallops or rubs, no JVD, no peripheral edema, RLE slightly more swollen than LLE. GASTROINTESTINAL: normal bowel sounds, soft, nontender, nondistended, no guarding. MUSCULOSKELETAL: generalized weakness, head is normocephalic and atraumatic SKIN: warm and dry, right upper thigh area is unremarkable, covered with a dry gauze and tegaderm NEUROLOGIC: CN 2-12 grossly intact, normal cognition, normal speech, no tremor, no gross focal deficits. PSYCHIATRIC: alert cooperative and oriented to person, place and time. Results & Data Results & Data ([facility]) Vital Signs (Past 12 Hours) Vital Signs Temp Pulse Pulse Resp BP BP Pulse Ox 08/22/20 16:13 36.4 C L 75 16 108/65 95 08/22/20 14:13 76 18 108/68 95 08/22/20 13:29 79 16 125/73 96 08/22/20 13:06 76 18 110/69 96 08/22/20 12:25 36.5 C 74 18 136/77 95 08/22/20 12:13 74 16 117/73 95 08/22/20 12:08 69 16 118/77 98 08/22/20 12:03 68 16 133/79 99 08/22/20 11:58 66 15 138/76 99 08/22/20 11:56 68 14 139/77 98 08/22/20 10:36 36.6 C 70 16 113/66 94 08/22/20 08:26 36.5 C 68 16 143/88 H 97 08/22/20 08:01 70 18 126/78 96 Medications Administered Current Inpatient Medications Acetaminophen (Acetaminophen 500 Mg Tab) 1,000 mg PO Q8H [facility] Stop: 09/20/20 13:14 Last Admin: 08/22/20 13:04 Dose: 1,000 mg Documented by: Amiodarone HCl (Amiodarone 200 Mg Tab) 200 mg PO DAILY [facility] Stop: 09/12/20 08:59 Last Admin: 08/22/20 07:56 Dose: 200 mg Documented by: Bupropion HCl (Bupropion Xl 300 Mg Tabcr) 300 mg PO DAILY [facility] Stop: 09/12/20 08:59 Last Admin: 08/22/20 07:56 Dose: 300 mg Documented by: Clonazepam (Clonazepam 1 Mg Tab) 1 mg PO HS [facility] Stop: 09/12/20 05:21 Last Admin: 08/21/20 20:22 Dose: 1 mg Documented by: Clonazepam (Clonazepam 0.5 Mg Tab) 0.5 mg PO QAM [facility] Stop: 09/19/20 08:59 Last Admin: 08/22/20 07:59 Dose: 0.5 mg Documented by: Desvenlafaxine Succinate (Desvenlafaxine Succinate Er) 1 ea PO QAM [facility] Stop: 09/19/20 08:59 Last Admin: 08/22/20 07:56 Dose: 1 ea Documented by: Dexamethasone (Dexamethasone 4 Mg Tab) 4 mg PO BID [facility] Stop: 09/12/20 08:59 Last Admin: 08/22/20 07:56 Dose: 4 mg Documented by: Fluticasone Propionate (Fluticasone Propionate Na Spr 16 Gm Btl) 2 sprays NA DAILY PRN PRN Reason: dryness Stop: 09/12/20 05:21 Promethazine HCl 12.5 mg/ (Sodium Chloride) 50.5 mls @ 202 mls/hr IV Q6H PRN PRN Reason: Nausea And Vomiting Stop: 09/12/20 05:21 Cefazolin Sodium (Ancef 2000mg) 2,000 mg in 15 mls @ 3.75 mls/min IV PREOP [facility] Stop: 08/23/20 05:59 Last Admin: 08/22/20 11:37 Dose: 3.75 mls/min Documented by: Iodixanol (Visipaque) 20 ml IV UD PRN PRN Reason: Interaction Checking Stop: 08/26/20 12:06 Last Admin: 08/22/20 12:08 Dose: 20 ml Documented by: Levothyroxine Sodium (Levothyroxine Sodium 75 Mcg Tablet) 75 mcg PO DAILYBB [facility] Stop: 09/13/20 06:29 Last Admin: 08/22/20 05:45 Dose: 75 mcg Documented by: Multivitamins (Multivitamin Tab) 1 tab PO DAILY [facility] Stop: 09/12/20 08:59 Last Admin: 08/22/20 07:57 Dose: 1 tab Documented by: Pantoprazole Sodium (Pantoprazole 40 Mg Tab) 40 mg PO DAILY [facility] Stop: 09/12/20 08:59 Last Admin: 08/22/20 07:56 Dose: 40 mg Documented by: Propranolol HCl (Propranolol Hcl 20 Mg Tab) 60 mg PO BID [facility] Stop: 09/12/20 08:59 Last Admin: 08/22/20 07:57 Dose: 60 mg Documented by: Quetiapine Fumarate (Quetiapine Fumarate 25 Mg Tablet) 50 mg PO HS [facility] Stop: 09/12/20 20:59 Last Admin: 08/21/20 20:22 Dose: 50 mg Documented by: Tramadol HCl (Tramadol Hcl 50 Mg Tablet) 50 mg PO Q4H PRN PRN Reason: moderate Pain Stop: 09/16/20 11:17 Last Admin: 08/22/20 13:03 Dose: 50 mg Documented by:
[2020-08-22] MEDS: clonazePAM 1 MG TAB PO SCH (20:42)
[2020-08-22] MEDS: QUEtiapine FUMARATE 25 MG TABLET PO SCH (20:43)
[2020-08-23] MEDS: traMADol HCL 50 MG TABLET PO PRN ×2 (00:32→08:35)
[2020-08-23] MEDS: LEVOTHYROXINE SODIUM 75 MCG TABLET PO SCH (05:22)
[2020-08-23] MEDS: ACETAMINOPHEN 500 MG TAB PO SCH ×2 (05:22→13:31)
[2020-08-23] MEDS: clonazePAM 0.5 MG TAB PO SCH (08:34)
[2020-08-23] MEDS: DESVENLAFAXINE SUCCINATE PO SCH (08:36)
[2020-08-23] MEDS: PANTOprazole 40 MG TAB PO SCH (08:36)
[2020-08-23] MEDS: dexAMETHasone 4 MG TAB PO SCH (08:37)
[2020-08-23] MEDS: MULTIVITAMIN TAB PO SCH (08:37)
[2020-08-23] MEDS: AMIODARONE 200 MG TAB PO SCH (08:37)
[2020-08-23] MEDS: PROPRANOLOL HCL 20 MG TAB PO SCH (08:37)
[2020-08-23] MEDS: buPROPion XL 300 MG TABCR PO SCH (08:38)
[2020-08-23] MEDS ORDERED: CHLORASEPTIC 1.4% SOLN 180 ML BTL MT PRN (10:19)
[2020-08-23] MEDS ORDERED: COUGH DROP (SUGAR FREE) LOZ 24 LOZ/1 BOX BUCCAL PRN (10:19)
[2020-08-23 16:01] VITALS: BP 121/72; PULSE 84; TEMP 98.4; O2SAT 95
--- NOTE | 2020-08-23 16:59 | Discharge Summary ---
Date of Service August 23, 2020 Admission HPI Per Admitting Provider History obtained from patient and records. Medical history significant for recurrent metastatic melanoma status post surgery, brain mets status post radiation ongoing steroid therap, PAF, nonobstructive CAD as per records, hypertension, hypothyroidism, mood disorder, past tobacco abuse. Worsening weakness the last few days with fever and chills. Right leg more swollen than usual. No chest pain, no S OB, no unusual headache symptoms. Patient denies abdominal pain, diarrhea, dysuria symptoms. Patient was so weak at home that he slid out of his chair therefore he could not get up. At the ER, patient given Vancomycin and Zosyn for sepsis. Medical History as above Surgical History : Lymph node biopsy, urologic procedures, leg bone lesion removal, hernia repair, skin cancer surgery Family History : BPH Personal/Social history : Past tobacco abuse, no EtOH intake, retired [employer] employee Admission Exam Per Admitting Provider GENERAL: uncomfortable, obese, no respiratory distress SKIN: Pallor, warm HEENT: Alopecia, pale palpebral conjunctivae, no ptosis, dry buccal mucosa NECK : Supple, short neck, no tenderness CHEST : Decreased breath sounds, no tenderness HEART : Tachycardic, no obvious murmurs ABDOMEN: Some distention, nontender EXTREMITIES : RLE swelling with minimal tenderness, no other conspicuous deformities noted NEUROLOGIC : Coherent, no facial asymmetry, MMTs BUE 4/5, BLE 2/5 Principal Diagnosis Dehydration-resolved Metastatic melanoma with Brain cancer Deep vein thrombosis (DVT) of right lower extremity s/p IVC filter Discharge Exam CONSTITUTIONAL: WNWD, vitals as above, generally well-appearing EYES: normal conjunctivae ENT: external ear and nose normal, oropharynx clear, mucous membranes are moist. RESPIRATORY: clear to auscultation bilaterally, no crackles, rales or wheezes, normal respiratory effort CARDIOVASCULAR: regular rate and rhythm, S1 and 2 heard without murmurs, gallops or rubs, no JVD, no peripheral edema, RLE slightly more swollen than LLE. GASTROINTESTINAL: normal bowel sounds, soft, nontender, nondistended, no guarding. MUSCULOSKELETAL: generalized weakness, head is normocephalic and atraumatic SKIN: warm and dry, right upper thigh area is unremarkable, covered with a dry gauze and tegaderm. He has a fresh wound on his back with a raised area that is chronic and TTP-no changes in this. NEUROLOGIC: CN 2-12 grossly intact, normal cognition, normal speech, no tremor, no gross focal deficits. PSYCHIATRIC: alert cooperative and oriented to person, place and time. Discharge Data Allergies Allergy/AdvReac Type Severity Reaction Status Date / Time No Known Allergies Allergy Unknown Verified 08/13/20 01:23 Consultations 08/13/20 01:41 ED Decision to Admit Stat 08/13/20 05:22 Consult Case Management - Discharge Planning Routine 08/13/20 07:53 Consult Palliative Care Routine 08/14/20 14:17 Consult Case Management - Discharge Planning Routine Consult Palliative Care Routine 08/19/20 14:04 Consult Vascular Surgery Routine 08/20/20 08:00 Consult Urology Routine Procedures Performed Operation Date: 08/22/20 09:10 Actual Procedures p Inferior Vena Cava Filter Placement Right Femoral Approach, Ultrasound Localization to Right Femoral Artery, Fluoroscopy for Confirmation, Moderate Sedation [id number] 1213(Right) - Gil Dalton MD Ordered Studies 08/13/20 00:30 CT head/brain wo con Urgent 08/13/20 03:37 US venous doppler LE RT Urgent 08/20/20 11:28 CT abdomen pelvis wo/w con Routine 08/22/20 08:00 EV IVC filter placement Routine Hospital Course (1) SIRS (systemic inflammatory response syndrome): (2) Deep vein thrombosis (DVT) of right lower extremity: (3) Metastatic melanoma: (4) Thrombocytopenia: (5) Leukocytosis: (6) Anemia: (7) T2DM (type 2 diabetes mellitus): The patient is a 75-year-old man with known metastatic melanoma with mets to the brain who just finished radiation therapy. He is under the care of Dr. Leone on with [facility] hematology. He continues on dexamethasone 4 mg p.o. twice daily per radiation oncology regimen. On arrival he reported significant dehydration and the patient met SIRS criteria. He was thought to potentially be septic and was started empirically on daptomycin and cefepime for sepsis of unknown source. He underwent lower extremity Dopplers to rule out DVT and was found to have an acute DVT of the right leg. At this time the patient also had thrombocytopenia with platelets in the 60-70,000 range. Around 08/13 he discussed the blood thinner therapy with the hospitalist but declined. In addition this was contraindicated in the setting of known brain metastasis and thrombocytopenia. He continued to improve clinically with IV fluid resuscitation and IV antibiotics. Palliative care was consulted given his terminal condition and goals of treatment were discussed and clarified multiple times. His thrombocytopenia improved to greater than 120 K and he did not demonstrate any signs of bleeding throughout the hospitalization. He was offered an IVC filter and vascular surgery was consulted to place this. Urology was also consulted for reports of gross hematuria by the patient which had resolved. A urinalysis and urine culture were performed revealing evidence of Mae. The patient was asymptomatic. Given the recommendation for an outpatient cystoscopy recommended in the next couple of weeks, he was given a sh ort course of antifungal therapy at discharge. He underwent IVC filter placement on 08/22 without complication. He preferred to recover in the hospital overnight to ensure everything was fine. He was placed on Flomax per urology and will need close urology follow-up as outpatient. At time of discharge she was mentating and ambulating at baseline and tolerating p.o. Physical exam was unremarkable outside of chronic issues. Vital signs were stable and he was hemodynamically stable and afebrile and oxygenating well on room air. He was sent to a alf facility as a transition to home as the patient lives alone. Close primary care follow-up is recommended. Of note there was no infectious source for initial presentation which was considered to be Sirs secondary to significant dehydration after radiation therapy and poor p.o. intake at home. Also of note he has an elevated hemoglobin A1c of 6.8 with no prior documented history of diabetes mellitus. Chronic steroids may be contributing to this and an oral agent may can be considered by primary care doctor. Will defer this to outpatient physician. (8) Candiduria: Total Time Total Time Spent Total Time Spent (In Minutes): 60 Total Time Includes: Examination of the Patient, Discharge Planning, Medication Reconciliation and Communication With Other Providers Discharge Plan Discharge Items Patient Disposition: Transfer [facility] Reason For Visit: SEPSISM DC ISOL, COVID NEG Discharge Diagnosis: Dehydration-resolved Metastatic melanoma with Brain cancer Deep vein thrombosis (DVT) of right lower extremity s/p IVC filter Condition on Discharge: Good Activity: Resume your previous activity Non-emergency contact: Primary Care Provider Call non-emergency contact if: you have any medication questions and your symptoms worsen Follow-up/Referrals: Robert Palm MD [Primary Care Provider] - Diet: Heart Healthy Addtl Attending Provider Instructions: Please take all medications as instructed on discharge list below. You are being given a short course of antifungal therapy to treat the yeast in your urine since you will be going for a urologic procedure soon. Someone from [facility] should be contacting you to schedule a visit for a cystoscopy procedure to look inside your bladder for a source of bleeding. You are also being given tamsulosin (Flomax) which is a medication to help make your urinary stream stronger and more consistent. Effectiveness of this medication should be followed by either Urology or your primary care provider (PCP). It is recommended that you follow-up with your PCP in 1 week to ensure you are still doing well after discharge from the hospital and to discuss new treatments. For your back pain, please note it was helpful for you to take scheduled acetaminophen (Tylenol) 1000mg every 8 hours, sometimes in conjunction with tramadol. Please follow-up with Dr. Rodriguez as originally planned for discussion of further treatments for your melanoma moving forward. CLARIFICATION ON THE CLONAZEPAM ORDER BELOW. THE PATIENT SHOULD CONTINUE TO TAKE CLONAZEPAM 0.5MG PO QAM AND 1MG PO QHS. DO NOT DISCONTINUE THIS. It was a pleasure taking care of you! Please call if you have any questions or problems. You can reach a [facility] hospitalist on duty at [facility] 24 hours a day by calling [phone]. Take care of yourself. Gayle Lee, DO [facility] Hospitalist Pending Studies at Discharge: No Stand-Alone Forms: My [facility] Skilled Items Patient informed of condition?: Yes DNR: Yes Discharge Level of Care: Skilled Communicable Disease: No Discharge Prognosis: Stable Lines: None Urinary Catheter: No Medications and DC Order Prescriptions: New levothyroxine [Synthroid] 75 mcg Tablet 75 mcg PO DAILYBB Qty: 30 RF: 1 tamsulosin [Flomax] 0.4 mg capsule 0.4 mg PO HS Qty: 30 RF: 1 fluconazole 200 mg tablet 200 mg PO DAILY Qty: 7 RF: 0 tramadol 50 mg tablet 50 mg PO Q6H PRN (Reason: Pain) Qty: 20 RF: 0 Continued pantoprazole [Protonix] 40 mg tablet,delayed release (DR/EC) 40 mg PO DAILY RF: 0 quetiapine [Seroquel] 25 mg tablet 50 mg PO HS RF: 0 fluticasone propionate [Flonase Allergy Relief] 50 mcg/actuation spray,suspension 2 spray intranasal DAILY PRN (Reason: dryness) RF: 0 multivitamin Tablet 1 tab PO DAILY RF: 0 loperamide [Imodium A-D] 2 mg capsule 2 mg PO BID PRN (Reason: Diarrhea) RF: 0 dexamethasone [Decadron] 4 mg tablet 4 mg PO BID RF: 0 nitroglycerin [Nitrostat] 0.4 mg Tablet, Sublingual 0.4 mg UT UD PRN (Reason: Chest Pain) Qty: 0 RF: 0 propranolol 60 mg Tablet 60 mg PO BID Qty: 0 RF: 0 desvenlafaxine succinate [Pristiq] 50 mg Tablet Extended Release 24 Hr 100 mg PO QAM Qty: 0 RF: 0 amiodarone 200 mg Tablet 200 mg PO DAILY Qty: 0 RF: 0 bupropion HCl [Wellbutrin XL] 300 mg Tablet Extended Release 24 Hr 300 mg PO DAILY Qty: 0 RF: 0 clonazepam 0.5 mg tablet 0.5 mg PO QAM RF: 0 clonazepam 1 mg PO HS RF: 0 Discontinued aspirin 325 mg tablet 325 mg PO DAILY RF: 0 vitamin E 200 unit capsule 400 unit PO DAILY RF: 0 levothyroxine 125 mcg Tablet 125 mcg PO DAILY Qty: 0 RF: 3 diclofenac sodium 1 % Gel 4 g TOPICAL QID RF: 0 clonazepam 1 mg Tablet 1 mg PO HS RF: 0 Discharge Orders: Discharge Order (Routine); Ordered 08/23/20 Ordered By: Gayle Tabares/Other Patient Handouts: A1C Admission Data Admit Date/Time: 08/13/20 03:40 Attending Provider: Gayle Lee Admit Provider: Parth Roach Primary Care Provider: Robert Palm Other Providers: Virginia Villalta ; Selin Lobo ; [facility] ; Parth Roach ; Gil Dalton ; Hima Peguero Other Interventions: Discharge Summary Assessment (RN) Last Done: 08/23/20 13:55
== END 2020-08-23 17:47 | DRG 299 ==
LOC: ED 23:36 → 2W 08-13 03:40 → SUATTDRO 08-13 03:40 → 2W 08-13 04:18 → 3E 08-17 19:10
DX: Z51.81 Encounter for therapeutic drug level monitoring; D72.829 Elevated white blood cell count, unspecified; D69.6 Thrombocytopenia, unspecified; I48.0 Paroxysmal atrial fibrillation; Z60.2 Problems related to living alone; R65.11 Systemic inflammatory response syndrome (SIRS) of non-infectious origin with acute organ dysfunction; Z87.891 Personal history of nicotine dependence; Z79.82 Long term (current) use of aspirin; N13.8 Other obstructive and reflux uropathy; N40.1 Benign prostatic hyperplasia with lower urinary tract symptoms; I10 Essential (primary) hypertension; E86.0 Dehydration; I25.10 Atherosclerotic heart disease of native coronary artery without angina pectoris; T38.0X5A Adverse effect of glucocorticoids and synthetic analogues, initial encounter; Z51.5 Encounter for palliative care; M19.90 Unspecified osteoarthritis, unspecified site; E03.9 Hypothyroidism, unspecified; G93.6 Cerebral edema; E11.9 Type 2 diabetes mellitus without complications; Z66 Do not resuscitate; Z79.890 Hormone replacement therapy; Z80.8 Family history of malignant neoplasm of other organs or systems; I82.411 Acute embolism and thrombosis of right femoral vein; C79.31 Secondary malignant neoplasm of brain; D84.821 Immunodeficiency due to drugs; Z80.42 Family history of malignant neoplasm of prostate; Z84.2 Family history of other diseases of the genitourinary system; E87.2 Acidosis; Z92.3 Personal history of irradiation; B37.49 Other urogenital candidiasis; Z98.52 Vasectomy status; Z85.820 Personal history of malignant melanoma of skin; R31.0 Gross hematuria; T66.XXXS Radiation sickness, unspecified, sequela; N17.9 Acute kidney failure, unspecified; Z87.11 Personal history of peptic ulcer disease; D63.0 Anemia in neoplastic disease; F32.9 Major depressive disorder, single episode, unspecified; R25.1 Tremor, unspecified; Z79.899 Other long term (current) drug therapy

== ENCOUNTER 2020-09-07 19:43 | Observation (INO) ==
[2020-09-07 20:27] LABS: Hematocrit (blood only) 36.2 % (42-52); Hemoglobin 11.7 g/dL (14.0-18.0); Mean Corpuscular Hemoglobin 32.5 pg (25-34); Mean Corpuscular Hgb Conc 32.3 g/dL (32-36); Mean Corpuscular Volume 100.6 fL (80-100); Mean Platelet Volume 9.8 fL (7.4-10.4); Nucleated RBC # (auto) 0.11 K/uL (0-0); Nucleated RBC % (auto) 1.1 %; Platelet Count 124 K/uL (130-400); RDW Coefficient of Variation 17.6 % (11.5-14.5); RDW Standard Deviation 64.3 fL (36.4-46.3); White Blood Count 9.41 K/uL (4.8-10.8)
[2020-09-07 20:47] LABS: ALC (manual) 0.57 K/uL (1.2-3.4); ANC (manual) 7.53 K/uL (1.4-6.5); Lymphocytes # (manual) 0.57 K/uL (1.2-3.4); Lymphocytes % (manual) 6.1 %; Metamyelocytes # (manual) 0.73 K/uL (0-0); Metamyelocytes % (manual) 7.8 %; Monocytes # (manual) 0.33 K/uL (0.11-0.59); Monocytes % (manual) 3.5 %; Myelocytes # (manual) 0.24 K/uL (0-0); Myelocytes % (manual) 2.6 %; Neutrophils # (manual) 7.53 K/uL (1.4-6.5)
[2020-09-07 20:48] LABS: INR 1.1 (0.9-1.1); Partial Thromboplastin Ratio 0.8; Partial Thromboplastin Time 23.4 Seconds (21.0-31.0); Prothrombin Time 11.7 Seconds (9.0-12.0)
[2020-09-07 20:50] LABS: Alanine Aminotransferase 48 U/L (12-78); Albumin Level 2.6 gm/dl (3.4-5.0); Aspartate Aminotransferase 14 U/L (15-37); BUN Creatinine Ratio 25.3 (10-20); Blood Urea Nitrogen 51 mg/dl (7-18); Calcium 9.3 mg/dl (8.5-10.1); Carbon Dioxide 21 mmol/L (21-32); Chloride 101 mmol/L (98-107); Est GFR (African American) 36.3; Est GFR (Non-African American) 31.3; Glucose 353 mg/dl (70-99); Lipase 98 U/L (73-393); Potassium 5.9 mmol/L (3.5-5.1); Sodium 133 mmol/L (136-145)
[2020-09-07 20:54] LABS: Albumin Globulin Ratio 0.7 (0.9-2); Alkaline Phosphatase 90 U/L (45-117); Bilirubin,Total 0.7 mg/dl (0.2-1); Globulin 3.9 gm/dl (2.5-4.0); Total Protein 6.5 gm/dl (6.4-8.2); Troponin I < 0.015 ng/ml (0-0.045)
[2020-09-07 21:06] LABS: Beta-Hydroxybutyrate 3.24 mg/dl (0.2-2.81)
[2020-09-07] MEDS ORDERED: NovoLIN-R INSULIN PER UNIT CHARGE IV STA (21:13)
[2020-09-07] MEDS ORDERED: CALCIUM GLUCONATE 10% 10 ML VIAL IV STA (21:13)
[2020-09-07] MEDS ORDERED: SODIUM CHLORIDE 0.9% 1000ML 1,000 ML IV ONE ×2 (21:13→23:59)
[2020-09-07] MEDS ORDERED: levoFLOXacin/D5W 750 MG/150 ML BAG IV STA (21:15)
[2020-09-07] MEDS ORDERED: CALCIUM GLUCONATE 10% 2,000 MG in SODIUM CHLORIDE 0.9% 50 ML IV STA (22:04)
--- NOTE | 2020-09-07 23:40 | Emergency Department Note ---
Impression & Plan Acute respiratory failure with hypoxemia, Thrombocytopenia, NIRU (acute kidney injury), Acute dehydration, Pneumonia ED Provider Note NAME: AUSTIN DOTSON AGE: 75 SEX: M : 1945 ARRIVES VIA: Ambulance INFORMANT: Patient, ED PROVIDER(S): Abe Curtis MD Chief Complaint: Shortness of breath HPI: Patient does present with from [facility] with concern for hypoxia. The patient was noted to be short of breath and tachycardic with associated chest pains. The patient did receive full dose aspirin and nitro in route. This did decrease his blood pressure but the patient states he did have improvement in symptoms. Patient states he is DNR/DNI and does not want aggressive measures. The patient was deemed not to be a candidate for anticoagulation and did have an IVC filter placed during his most recent admission at the end of July. Patient does have lower extremity swelling which patient states is unchanged from before. There was reported mottling in the lower extremities. The patient denies any fevers or chills. The patient states that his chest pain is essentially resolved. After further discussion the patient does not want aggressive measures but would be amenable to things like blood work IV fluids oxygen administration and antibiotics. ROS: See HPI for pertinent positives and negatives. A total of 10 systems were reviewed and otherwise negative. Past medical history: See below Surgical history: See below Social history: See below Physical Exam: GENERAL: Ill in appearance, moderate distress, nasal cannula in place. EYE EXAM: Normal conjunctiva. PERRL, no anisocoria and EOM's grossly intact w/o pain. NECK: Supple, no nuchal rigidity, no adenopathy, non-tender. No signs of meningismus. LUNGS: Diminished breath sounds at the bilateral bases with scant wheezing to the left chest. Normal chest wall mechanics. HEART: Tachycardic and regular, no MRG. ABDOMEN: Abdomen soft, non-tender, normo-active bowel sounds, no masses, no rebound or guarding. BACK: No CVA TTP. SKIN: No rashes and no bruising. UPPER EXTREMITIES: Upper extremities are grossly normal. LOWER EXTREMITIES: 2+ left lower extremity 3+ right lower extremity edema. Slight decrease in temperature in the feet but normal temperature in the [place] area. No pain, sensate, pulses present. NEURO EXAM: A&O x3, cranial nerves II-XII grossly intact, normal speech, moves all 4 extremities on command w/o issue. Differential diagnoses: Reactive airway disease, pneumonia, pneumothorax, COPD, CHF, infections, cardiac ischemia, pulmonary embolism, musculoskeletal, gastrointestinal, as well as other pathologies. Course: Patient was seen and evaluated the bedside. Full history physical exam was performed. EKG: Indication: Chest pain Sinus tachycardia, rate of 133, normal intervals, normal axis, ST depressions in the lateral leads. Imaging Studies: 1 view chest x-ray Right lower lobe opacity noted concerning for pneumonia. Cardiac monitoring: An order was placed for continuous cardiac monitoring. The monitor shows a rate of 120 with sinus tachycardia rhythm. MDM: Patient did present with shortness of breath and hypoxia. The patient did not want want aggressive measures but was amenable to blood work IV fluids and antibiotic medications along with supplemental oxygen. Patient does have a nor mal white count with some mild anemia with hemoglobin of 11. Platelet count is slightly low at 124. The patient does have NIRU with baseline creatinine less than 1 today is 2 with an elevated BUN of 51. Likely prerenal azotemia. The patient does have significant lower extremity edema but the patient has clear breath sounds and x-ray does not appear to show overt pulmonary edema. Patient did have a Covid test that was negative. Troponin is not detectable. As the patient was not a candidate for anticoagulant medication and did have an IVC filter a CT angiography was not ordered at this time as the patient did not want anticoagulant therapy. Patient potassium was 5.9 so the patient was ordered insulin IV fluids and calcium. The patient did receive Levaquin for the concern for the pneumonia. Patient was offered the choice to return back to [facility] as the patient was considering only antibiotics and IV fluids. The patient would prefer to be admitted to the hospital this time. I did speak with the on- call hospitalist Dr. Marley MD. The patient was admitted to the [facility]. Critical Care: I have personally spent 95 minutes of critical care time in direct management of this patient. This includes bedside care, interpretation of diagnostic studies, and testing, discussion with consultants, patient, and family members, and other require inpatient management activities. This 95 minutes is in excess of all separately billable procedures. Past Med/Surg History Medical History (Updated 09/07/20 @ 23:38 by Abe Curtis MD) Afib Depression Gastric ulcer Heart disease History of left heart catheterization (LHC) Hypertension Hypothyroidism Incarcerated right inguinal hernia LVH (left ventricular hypertrophy) MDD (major depressive disorder) Osteoarthritis Surgical History H/O colonoscopy 2014 H/O hernia repair Late History of lithotripsy Late History of lymph node dissection of axilla 06/17/2017 - Left Axilla Non [place] Node Packet - 09/22 nodes positive for malignant melanoma 08/17/2017 - SLN Dissection History of radical excision of skin lesion 04/27/2020 - Right Upper Back - Malignant Melanoma History of surgery 1979 - Benign tumor removed from back of right knee Family History Mother , Passed age 92 natural causes Skin cancer Father , Passed age 68 of H&N Cancer Prostate cancer, Onset Age: 58 Prostatectomy Brother No problems noted. Other Has no children Social History Smoking Status: Former smoker Hx Alcohol Use: No Hx Substance Use: No Preferred Language: [place] Communication Ability: Effective Visual Impairment: Limited Hearing Ability: Normal Grounds Maintenance Worker Required: No Beliefs That Will Affect Care: None marital status: Single Current Living Situation: Alone Current Living Situation Comment: Lives in skilled nursing at [facility] current occupational status: retired current occupation: retired from [employer] at [employer] How many Children do You have: 0 Feels Safe at Home: Yes Childhood Exposure to Second-Hand Smoke: Yes (Father ) caffeine: No during the past year weight has: remained stable Dental Care, Regularly: Yes Assistive Devices: Walker Allergies Allergies Allergy/AdvReac Type Severity Reaction Status Date / Time No Known Allergies Allergy Unknown Verified 09/07/20 21:46 Home Meds Home Medications Medication Instructions Recorded Confirmed nitroglycerin [Nitrostat] 0.4 mg UT UD PRN #0 06/18/08 09/07/20 amiodarone 200 mg PO DAILY #0 10/02/16 09/07/20 bupropion HCl [Wellbutrin XL] 300 mg PO DAILY #0 10/02/16 09/07/20 propranolol 60 mg PO BID #0 10/02/16 09/07/20 fluticasone propionate 50 2 spray INTRANASAL DAILY PRN 06/26/20 09/07/20 mcg/actuation nasal spray,suspension loperamide 2 mg capsule 2 mg PO BID PRN cap 06/26/20 09/07/20 multivitamin 1 tab PO DAILY 06/26/20 09/07/20 pantoprazole 40 mg tablet,delayed 40 mg PO DAILY 06/26/20 09/07/20 release quetiapine 25 mg tablet 50 mg PO HS tab 06/26/20 09/07/20 dexamethasone 4 mg tablet 4 mg PO BID 08/04/20 09/07/20 clonazepam 0.5 mg PO QAM 08/23/20 09/07/20 Med Pass Supplement 120 ml PO TID 09/07/20 09/07/20 Silicone Foam Adhesive Dressin 1 applic TOPICAL .Q5DAYS 09/07/20 09/07/20 acetaminophen [Tylenol] 650 mg PO Q4 PRN 09/07/20 09/07/20 benzonatate [Tessalon Perles] 100 mg PO TID 09/07/20 09/07/20 clonazepam 1 mg PO HS 09/07/20 09/07/20 codeine-guaifenesin [Robitussin 5 ml PO Q4H PRN 09/07/20 09/07/20 A-C] desvenlafaxine succinate 50 mg PO DAILY 09/07/20 09/07/20 foam bandage [Allevyn Adhesive 09/07/20 09/07/20 Dressing] ipratropium-albuterol 3 ml INHALATION QID 09/07/20 09/07/20 saliva stimulant comb. no.3 1 spray MUCOUS MEMBRANE Q4 PRN 09/07/20 09/07/20 [Biotene Moisturizing Mouth] saliva stimulant comb. no.3 1 spray MUCOUS MEMBRANE QID 09/07/20 09/07/20 [Biotene Moisturizing Mouth] tamsulosin [Flomax] 0.4 mg PO HS 09/07/20 09/07/20 Previous Rx's Medication Instructions Recorded levothyroxine [Synthroid] 75 mcg PO DAILYBB #30 tab 08/23/20 tramadol 50 mg PO Q6H PRN #20 tab 08/23/20 Results & Data (ED) Vital Signs Vital Signs - 24 hr 09/07/20 20:08 09/07/20 20:25 09/07/20 20:30 Temperature 36.9 C Temperature Source Oral Pulse Rate 135 H Pulse Rate [Left] 132 H Respiratory Rate 20 23 Respiratory Effort / Characteristics Respiratory Depth Blood Pressure 91/62 L Blood Pressure [Left Arm] 91/64 L Blood Pressure Mean 71 Blood Pressure Mean [Left Arm] 73 Pulse Oximetry 92 92 Oxygen Delivery Method Nasal Cannula Nasal Cannula Nasal Cannula Oxygen Flow Rate 4 4 4 Sepsis Recent Fever Within 48 Hours No Sepsis New/Unexplained Change in Mental Status No Sepsis Action Taken by Nursing Physician Notified 09/07/20 21:00 09/07/20 21:30 09/07/20 22:00 Temperature Temperature Source Pulse Rate Pulse Rate [Left] 129 H 130 H 122 H Respiratory Rate 24 22 20 Respiratory Effort / Characteristics Respiratory Depth Blood Pressure Blood Pressure [Left Arm] 90/68 L 85/67 L 99/67 L Blood Pressure Mean Blood Pressure Mean [Left Arm] 75 73 77 Pulse Oximetry 92 92 92 Oxygen Delivery Method Room Air Room Air Room Air Oxygen Flow Rate Sepsis Recent Fever Within 48 Hours Sepsis New/Unexplained Change in Mental Status Sepsis Action Taken by Nursing 09/07/20 23:13 Temperature Temperature Source Pulse Rate Pulse Rate [Left] 120 H Respiratory Rate 21 Respiratory Effort / Characteristics Non-Labored Spontaneous Respiratory Depth Normal Blood Pressure Blood Pressure [Left Arm] 86/61 L Blood Pressure Mean Blood Pressure Mean [Left Arm] 69 Pulse Oximetry 94 Oxygen Delivery Method Nasal Cannula Oxygen Flow Rate 4 Sepsis Recent Fever Within 48 Hours Sepsis New/Unexplained Change in Mental Status Sepsis Action Taken by Alf Medications Current Medication List: was personally reviewed by me Laboratory Data Attestation: I reviewed the patient's lab results. Result diagrams: 09/07/20 18:15 09/07/20 18:15 Lab Results 09/07/20 09/07/20 09/07/20 Range/Units 18:15 18:15 18:15 WBC 9.41 (4.8-10.8) K/uL RBC 3.60 L (4.7-6.1) M/uL Hgb 11.7 L (14.0-18.0) g/dL Hct 36.2 L (42-52) % MCV 100.6 H (80-100) fL MCH 32.5 (25-34) pg MCHC 32.3 (32-36) g/dL RDW Std Deviation 64.3 H (36.4-46.3) fL RDW Coeff of Cal 17.6 H (11.5-14.5) % Plt Count 124 L (130-400) K/uL MPV 9.8 (7.4-10.4) fL Absolute Nucleated RBC 0.11 H (0-0) K/uL Nucleated RBC % (auto) 1.1 % Neutrophils % (Manual) 80.0 % Lymphocytes % (Manual) 6.1 % Monocytes % (Manual) 3.5 % Metamyelocytes % (Man) 7.8 % Myelocytes % (Man) 2.6 % Neutrophils # (Manual) 7.53 H (1.4-6.5) K/uL Total Absolute Neuts 7.53 H (1.4-6.5) K/uL Lymphocytes # (Manual) 0.57 L (1.2-3.4) K/uL Total Abs Lymphocytes 0.57 L (1.2-3.4) K/uL Monocytes # (Manual) 0.33 (0.11-0.59) K/uL Metamyelocytes # (Man) 0.73 H (0-0) K/uL Myelocytes # (Manual) 0.24 H (0-0) K/uL PT 11.7 (9.0-12.0) Seconds INR 1.1 (0.9-1.1) APTT 23.4 (21.0-31.0) Seconds PTT Ratio 0.8 Sodium 133 L (136-145) mmol/L Potassium 5.9 H (3.5-5.1) mmol/L Chloride 101 (98-107) mmol/L Carbon Dioxide 21 (21-32) mmol/L Anion Gap 11.0 (3-11) BUN 51 H (7-18) mg/dl Creatinine 2.01 H (0.6-1.4) mg/dl Est Cr Clr Drug Dosing Not Reportable Est GFR ( Amer) 36.3 Est GFR (Non-Af Amer) 31.3 BUN/Creatinine Ratio 25.3 H (10-20) Glucose 353 H* (70-99) mg/dl Calcium 9.3 (8.5-10.1) mg/dl Total Bilirubin 0.7 (0.2-1) mg/dl AST 14 L (15-37) U/L ALT 48 (12-78) U/L Alkaline Phosphatase 90 (45-117) U/L Troponin I < 0.015 (0-0.045) ng/ml Total Protein 6.5 (6.4-8.2) gm/dl Albumin 2.6 L (3.4-5.0) gm/dl Globulin 3.9 (2.5-4.0) gm/dl Albumin/Globulin Ratio 0.7 L (0.9-2) Lipase 98 (73-393) U/L Beta-Hydroxybutyric Acd 3.24 H (0.2-2.81) mg/dl COVID-19 Eval Order COVID-19 PCR (Negative) 09/07/20 09/07/20 Range/Units 18:15 18:15 WBC (4.8-10.8) K/uL RBC (4.7-6.1) M/uL Hgb (14.0-18.0) g/dL Hct (42-52) % MCV (80-100) fL MCH (25-34) pg MCHC (32-36) g/dL RDW Std Deviation (36.4-46.3) fL RDW Coeff of Cal (11.5-14.5) % Plt Count (130-400) K/uL MPV (7.4-10.4) fL Absolute Nucleated RBC (0-0) K/uL Nucleated RBC % (auto) % Neutrophils % (Manual) % Lymphocytes % (Manual) % Monocytes % (Manual) % Metamyelocytes % (Man) % Myelocytes % (Man) % Neutrophils # (Manual) (1.4-6.5) K/uL Total Absolute Neuts (1.4-6.5) K/uL Lymphocytes # (Manual) (1.2-3.4) K/uL Total Abs Lymphocytes (1.2-3.4) K/uL Monocytes # (Manual) (0.11-0.59) K/uL Metamyelocytes # (Man) (0-0) K/uL Myelocytes # (Manual) (0-0) K/uL PT (9.0-12.0) Seconds INR (0.9-1.1) APTT (21.0-31.0) Seconds PTT Ratio Sodium (136-145) mmol/L Potassium (3.5-5.1) mmol/L Chloride (98-107) mmol/L Carbon Dioxide (21-32) mmol/L Anion Gap (3-11) BUN (7-18) mg/dl Creatinine (0.6-1.4) mg/dl Est Cr Clr Drug Dosing Est GFR ( Amer) Est GFR (Non-Af Amer) BUN/Creatinine Ratio (10-20) Glucose (70-99) mg/dl Calcium (8.5-10.1) mg/dl Total Bilirubin (0.2-1) mg/dl AST (15-37) U/L ALT (12-78) U/L Alkaline Phosphatase (45-117) U/L Troponin I (0-0.045) ng/ml Total Protein (6.4-8.2) gm/dl Albumin (3.4-5.0) gm/dl Globulin (2.5-4.0) gm/dl Albumin/Globulin Ratio (0.9-2) Lipase (73-393) U/L Beta-Hydroxybutyric Acd (0.2-2.81) mg/dl COVID-19 Eval Order Covid19 Done at [facility] COVID-19 PCR NEGATIVE (Negative) Administered Medications Discontinued Medications Sodium Chloride (Nss 1000ml) 1,000 mls @ 999 mls/hr IV .Q1H1M ONE Stop: 09/07/20 22:13 Last Infusion: 09/07/20 23:11 Dose: 0 mls/hr Documented by: [id number] Admin: 09/07/20 21:58 Dose: 999 mls/hr Documented by: [id number] Levofloxacin/Dextrose (Levaquin/D5w) 750 mg in 150 mls @ 100 mls/hr IV NOW STA Stop: 09/07/20 22:44 Last Admin: 09/07/20 22:41 Dose: 100 mls/hr Documented by: [id number] Calcium Gluconate 2,000 mg/ (Sodium Chloride) 70 mls @ 280 mls/hr IV NOW STA Stop: 09/07/20 22:18 Last Infusion: 09/07/20 22:41 Dose: 0 mls/hr Documented by: [id number] Admin: 09/07/20 22:16 Dose: 280 mls/hr Documented by: [id number] Insulin Human Regular (Novolin-R Insulin Per Unit Charge) 5 units IV NOW STA Stop: 09/07/20 21:14 Last Admin: 09/07/20 22:07 Dose: 5 units Documented by: [id number] Cosigned by: [id number] Discharge Plan Visit Data Chief Complaint: Chest Pain ED Provider: Abe Curtis Discharge Problem: Acute respiratory failure with hypoxemia, Thrombocytopenia, NIRU (acute kidney injury), Acute dehydration, Pneumonia Forms Stand Alone Forms: [facility] Prescriptions Prescriptions: No Action pantoprazole [Protonix] 40 mg tablet,delayed release (DR/EC) 40 mg PO DAILY RF: 0 quetiapine [Seroquel] 25 mg tablet 50 mg PO HS RF: 0 fluticasone propionate [Flonase Allergy Relief] 50 mcg/actuation spray,suspension 2 spray intranasal DAILY PRN (Reason: dryness) RF: 0 multivitamin Tablet 1 tab PO DAILY RF: 0 loperamide [Imodium A-D] 2 mg capsule 2 mg PO BID PRN (Reason: Diarrhea) RF: 0 dexamethasone [Decadron] 4 mg tablet 4 mg PO BID RF: 0 nitroglycerin [Nitrostat] 0.4 mg Tablet, Sublingual 0.4 mg UT UD PRN (Reason: Chest Pain) Qty: 0 RF: 0 propranolol 60 mg Tablet 60 mg PO BID Qty: 0 RF: 0 amiodarone 200 mg Tablet 200 mg PO DAILY Qty: 0 RF: 0 bupropion HCl [Wellbutrin XL] 300 mg Tablet Extended Release 24 Hr 300 mg PO DAILY Qty: 0 RF: 0 acetaminophen [Tylenol] 325 mg Tablet 650 mg PO Q4 PRN (Reason: Fever Or Pain) RF: 0 ipratropium-albuterol 0.5 mg-3 mg(2.5 mg base)/3 mL Solution For Nebulization 3 ml INHALATION QID RF: 0 clonazepam 1 mg Tablet 1 mg PO HS RF: 0 tamsulosin [Flomax] 0.4 mg capsule 0.4 mg PO HS RF: 0 benzonatate [Tessalon Perles] 100 mg Capsule 100 mg PO TID RF: 0 Robitussin A-C 10-100 mg/5 mL Syrup 5 ml PO Q4H PRN (Reason: Cough) RF: 0 (DME) Allevyn Adhesive Dressing 3 X 3 " Bandage TOPICAL RF: 0 desvenlafaxine succinate 50 mg Tablet Extended Release 24 Hr 50 mg PO DAILY RF: 0 Biotene Moisturizing Mouth [place],Non-Aerosol 1 spray MUCOUS MEMBRANE QID RF: 0 Biotene Moisturizing Mouth [place],Non-Aerosol 1 spray MUCOUS MEMBRANE Q4 PRN (Reason: Dry Mouth) RF: 0 Med Pass Supplement 120 ml PO TID RF: 0 Silicone Foam Adhesive Dressin 1 applic topical .Q5DAYS RF: 0 levothyroxine [Synthroid] 75 mcg Tablet 75 mcg PO DAILYBB Qty: 30 RF: 1 clonazepam 0.5 mg tablet 0.5 mg PO QAM RF: 0 tramadol 50 mg tablet 50 mg PO Q6H PRN (Reason: Pain) Qty: 20 RF: 0 Discharge Problem: Pneumonia Qualifiers: Pneumonia type: due to unspecified organism Laterality: right Lung location: lower lobe of lung Qualified Code(s): J18.9 - Pneumonia, unspecified organism
[2020-09-07] MEDS ORDERED: methylPREDNISolone 20 MG in SYRINGE 0 ML IV STA (23:49)
[2020-09-07] MEDS ORDERED: INSULIN HUMAN REGULAR PER UNIT 5 UNITS in SYRINGE 0 ML IV STA (23:59)
[2020-09-08] MEDS ORDERED: NovoLIN-R INSULIN PER UNIT CHARGE IV STA (00:17)
--- NOTE | 2020-09-08 01:57 | History & Physical Report ---
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 intake, deconditioning GMF Comfort measures following discussion with patient at the ER. Providers from recent confinement and [facility] have had prior discussions with patient as per documentation. Palliative care consultation Social service RE discharge planning for discharge back to [facility] for hospice care DNR Text document was generated using [employer] voice recognition software. It may contain grammatical or spelling errors. Kindly contact undersigned for clarification of any documentation item in question. History of Present Illness Chief Complaint: Chest pain, hypoxemia, shortness of breath Primary Care Provider: Robert Palm MD History obtained from patient and records. Medical history significant for recurrent metastatic melanoma status post surgery, brain mets status post radiation ongoing steroid therapy, PAF, nonobstructive CAD as per records, hypertension, hypothyroidism, mood disorder, recent DVT status post IVC filter placement, chronic anemia (baseline hemoglobin 11-13), chronic thrombocytopenia, past tobacco abuse. Recent confinement last month for dehydration, right lower extremity status post IVC filter placement. Anticoagulation precluded by brain mets from malignant melanoma, hematuria symptoms, and thrombocytopenia. Palliative care consulted during confinement. Patient discharged to [facility] for rehab. Patient frustrated with decreased mobility at [facility]. Appetite not too good. One week history of cough symptoms at [facility]. Levaquin started for possible pneumonia. Improving cough as per outpatient documentation. As per outpatient note, ongoing discussions regarding placement back on hospice for end-of-life care. Patient wants to go back to his apartment to be with his brother but realizes that elderly brother might not be able to provide enough care for patient at home. [facility] provider trying to convince patient to stay at facility for hospice. Yesterday, patient complained of achy left-sided chest pain with shortness of breath. Usual leg swelling. No unusual cough symptoms as per patient. Patient noted to be hypoxemic and tachycardic at [facility]. Initial SBP at the ER 80s to 90s. Patient received IV fluids and Levaquin at the ER. Medical History as above Surgical History : Lymph node biopsy, urologic procedures, leg bone lesion removal, hernia repair, skin cancer surgery, IVC filter placement Family History : BPH Personal/Social history : Past tobacco abuse, no EtOH intake, retired [employer] employee Allergies Allergy/AdvReac Type Severity Reaction Status Date / Time No Known Allergies Allergy Unknown Verified 09/07/20 21:46 Home Medications Home Medications Medication Instructions Recorded Confirmed Type nitroglycerin [Nitrostat] 0.4 mg UT UD PRN #0 06/18/08 09/07/20 History amiodarone 200 mg PO DAILY #0 10/02/16 09/07/20 History bupropion HCl [Wellbutrin XL] 300 mg PO DAILY #0 10/02/16 09/07/20 History propranolol 60 mg PO BID #0 10/02/16 09/07/20 History fluticasone propionate 50 2 spray INTRANASAL DAILY PRN 06/26/20 09/07/20 History mcg/actuation nasal spray,suspension loperamide 2 mg capsule 2 mg PO BID PRN cap 06/26/20 09/07/20 History multivitamin 1 tab PO DAILY 06/26/20 09/07/20 History pantoprazole 40 mg tablet,delayed 40 mg PO DAILY 06/26/20 09/07/20 History release quetiapine 25 mg tablet 50 mg PO HS tab 06/26/20 09/07/20 History dexamethasone 4 mg tablet 4 mg PO BID 08/04/20 09/07/20 History clonazepam 0.5 mg PO QAM 08/23/20 09/07/20 History levothyroxine [Synthroid] 75 mcg PO DAILYBB #30 tab 08/23/20 09/07/20 Rx tramadol 50 mg PO Q6H PRN #20 tab 08/23/20 09/07/20 Rx Med Pass Supplement 120 ml PO TID 09/07/20 09/07/20 History Silicone Foam Adhesive Dressin 1 applic TOPICAL .Q5DAYS 09/07/20 09/07/20 History acetaminophen [Tylenol] 650 mg PO Q4 PRN 09/07/20 09/07/20 History benzonatate [Tessalon Perles] 100 mg PO TID 09/07/20 09/07/20 History clonazepam 1 mg PO HS 09/07/20 09/07/20 History codeine-guaifenesin [Robitussin 5 ml PO Q4H PRN 09/07/20 09/07/20 History A-C] desvenlafaxine succinate 50 mg PO DAILY 09/07/20 09/07/20 History foam bandage [Allevyn Adhesive 09/07/20 09/07/20 History Dressing] ipratropium-albuterol 3 ml INHALATION QID 09/07/20 09/07/20 History saliva stimulant comb. no.3 1 spray MUCOUS MEMBRANE Q4 PRN 09/07/20 09/07/20 History [Biotene Moisturizing Mouth] saliva stimulant comb. no.3 1 spray MUCOUS MEMBRANE QID 09/07/20 09/07/20 History [Biotene Moisturizing Mouth] tamsulosin [Flomax] 0.4 mg PO HS 09/07/20 09/07/20 History Past Med/Surg History Medical History Afib Depression Gastric ulcer Heart disease History of left heart catheterization (LHC) Hypertension Hypothyroidism Incarcerated right inguinal hernia LVH (left ventricular hypertrophy) MDD (major depressive disorder) Osteoarthritis Palliative care encounter Surgical History H/O colonoscopy 2014 H/O hernia repair Late History of lithotripsy Late History of lymph node dissection of axilla 06/17/2017 - Left Axilla Non [place] Node Packet - 09/22 nodes positive for malignant melanoma 08/17/2017 - SLN Dissection History of radical excision of skin lesion 04/27/2020 - Right Upper Back - Malignant Melanoma History of surgery 1979 - Benign tumor removed from back of right knee Family History Mother , Passed age 92 natural causes Skin cancer Father , Passed age 68 of H&N Cancer Prostate cancer, Onset Age: 58 Prostatectomy Brother No problems noted. Other Has no children Social History Smoking Status: Former smoker Second Hand Exposure: No; Do You Dip or Chew Tobacco: No; Tobacco Cessation Education Requested by Patient: No Hx Alcohol Use: No Hx Substance Use: No Preferred Language: Arabic Communication Ability: Effective Visual Impairment: Limited Hearing Ability: Normal Director [employer] Required: No Beliefs That Will Affect Care: None marital status: Unknown Current Living Situation: Personal Care Facility Current Living Situation Comment: Amy Traylor current occupational status: retired current occupation: retired from [employer] of [employer] at [facility] [employer] [facility] How many Children do You have: 0 Feels Safe at Home: Yes Safety Concerns: Feels Safe At This Time Childhood Exposure to Second-Hand Smoke: Yes (Father ) caffeine: No during the past year weight has: remained stable Dental Care, Regularly: Yes Review of Systems Review of Systems: As per HPI, all 10 systems reviewed, all other ROS negative Physical Exam Physical Exam: GENERAL: uncomfortable, obese, no respiratory distress SKIN: Pallor, warm HEENT: Alopecia, pale palpebral conjunctivae, no ptosis, dry buccal mucosa, nasal cannula in place NECK : Supple, short neck, no tenderness CHEST : Decreased breath sounds, no tenderness HEART : Tachycardic, no obvious murmurs ABDOMEN: Some distention, nontender EXTREMITIES : Minimal LE swelling, no overt tenderness NEUROLOGIC : Coherent, no facial asymmetry, MMTs BUE 4/5, BLE 2/5 Results & Data Results & Data ([facility]) Vital Signs (Past 12 Hours) Vital Signs Temp Pulse Pulse Resp BP BP Pulse Ox 09/08/20 00:30 123 H 21 96/69 L 93 09/07/20 23:30 119 H 20 82/62 L 94 09/07/20 23:13 120 H 21 86/61 L 94 09/07/20 23:00 119 H 21 102/65 91 09/07/20 22:00 122 H 20 99/67 L 92 09/07/20 21:30 130 H 22 85/67 L 92 09/07/20 21:00 129 H 24 90/68 L 92 09/07/20 20:30 132 H 23 91/64 L 92 09/07/20 20:25 36.9 C 135 H 20 91/62 L 92 Laboratory Results Laboratory Results WBC 9.41 K/uL (4.8-10.8) 09/07/20 18:15 RBC 3.60 M/uL (4.7-6.1) L 09/07/20 18:15 Hgb 11.7 g/dL (14.0-18.0) L 09/07/20 18:15 Hct 36.2 % (42-52) L 09/07/20 18:15 MCV 100.6 fL (80-100) H 09/07/20 18:15 MCH 32.5 pg (25-34) 09/07/20 18:15 MCHC 32.3 g/dL (32-36) 09/07/20 18:15 RDW Std Deviation 64.3 fL (36.4-46.3) H 09/07/20 18:15 RDW Coeff of Cal 17.6 % (11.5-14.5) H 09/07/20 18:15 Plt Count 124 K/uL (130-400) L 09/07/20 18:15 MPV 9.8 fL (7.4-10.4) 09/07/20 18:15 Absolute Nucleated RBC 0.11 K/uL (0-0) H 09/07/20 18:15 Nucleated RBC % (auto) 1.1 % 09/07/20 18:15 Neutrophils % (Manual) 80.0 % 09/07/20 18:15 Lymphocytes % (Manual) 6.1 % 09/07/20 18:15 Monocytes % (Manual) 3.5 % 09/07/20 18:15 Metamyelocytes % (Man) 7.8 % 09/07/20 18:15 Myelocytes % (Man) 2.6 % 09/07/20 18:15 Neutrophils # (Manual) 7.53 K/uL (1.4-6.5) H 09/07/20 18:15 Total Absolute Neuts 7.53 K/uL (1.4-6.5) H 09/07/20 18:15 Lymphocytes # (Manual) 0.57 K/uL (1.2-3.4) L 09/07/20 18:15 Total Abs Lymphocytes 0.57 K/uL (1.2-3.4) L 09/07/20 18:15 Monocytes # (Manual) 0.33 K/uL (0.11-0.59) 09/07/20 18:15 Metamyelocytes # (Man) 0.73 K/uL (0-0) H 09/07/20 18:15 Myelocytes # (Manual) 0.24 K/uL (0-0) H 09/07/20 18:15 PT 11.7 Seconds (9.0-12.0) 09/07/20 18:15 INR 1.1 (0.9-1.1) 09/07/20 18:15 APTT 23.4 Seconds (21.0-31.0) 09/07/20 18:15 PTT Ratio 0.8 09/07/20 18:15 Sodium 133 mmol/L (136-145) L 09/07/20 18:15 Potassium 5.9 mmol/L (3.5-5.1) H 09/07/20 18:15 Chloride 101 mmol/L (98-107) 09/07/20 18:15 Carbon Dioxide 21 mmol/L (21-32) 09/07/20 18:15 Anion Gap 11.0 (3-11) 09/07/20 18:15 BUN 51 mg/dl (7-18) H 09/07/20 18:15 Creatinine 2.01 mg/dl (0.6-1.4) H 09/07/20 18:15 Est Cr Clr Drug Dosing Not Reportable 09/07/20 18:15 Est GFR ( Amer) 36.3 09/07/20 18:15 Est GFR (Non-Af Amer) 31.3 09/07/20 18:15 BUN/Creatinine Ratio 25.3 (10-20) H 09/07/20 18:15 Glucose 353 mg/dl (70-99) H* 09/07/20 18:15 POC Glucose 267 mg/dl (70-99) H 09/08/20 00:04 Calcium 9.3 mg/dl (8.5-10.1) 09/07/20 18:15 Total Bilirubin 0.7 mg/dl (0.2-1) 09/07/20 18:15 AST 14 U/L (15-37) L 09/07/20 18:15 ALT 48 U/L (12-78) 09/07/20 18:15 Alkaline Phosphatase 90 U/L (45-117) 09/07/20 18:15 Troponin I < 0.015 ng/ml (0-0.045) 09/07/20 18:15 Total Protein 6.5 gm/dl (6.4-8.2) 09/07/20 18:15 Albumin 2.6 gm/dl (3.4-5.0) L 09/07/20 18:15 Globulin 3.9 gm/dl (2.5-4.0) 09/07/20 18:15 Albumin/Globulin Ratio 0.7 (0.9-2) L 09/07/20 18:15 Lipase 98 U/L (73-393) 09/07/20 18:15 Beta-Hydroxybutyric Acd 3.24 mg/dl (0.2-2.81) H 09/07/20 18:15 COVID-19 Eval Order Covid19 Done at [facility] 09/07/20 18:15 COVID-19 PCR NEGATIVE (Negative) 09/07/20 18:15 Diagnostic Findings Chest x-ray as per my interpretation right lower lobe pneumonia EKG as per my interpretation : Rate 135, sinus tachycardia, LAD, LAFB, T wave abnormalities lateral leads
[2020-09-08 02:24] VITALS: PULSE 123
[2020-09-08] MEDS ORDERED: ACETAMINOPHEN 325 MG TAB ONE (02:37)
[2020-09-08] MEDS ORDERED: ATROPINE SULFATE 1% OP SOLN 2 ML BTL SL PRN (03:12)
[2020-09-08] MEDS ORDERED: ONDANSETRON INJ 2 MG/ML 2 ML VIAL IV PRN (03:12)
[2020-09-08] MEDS ORDERED: NON-FORMULARY MEDICATION (Saliva Stimulant Comb. No.3 [Biotene Moisturizing Mouth] Spray,N MUCOUS MEMBRANE PRN (03:12)
[2020-09-08] MEDS ORDERED: MoRPHine SULFATE 5 MG/0.25 ML UDP PO PRN (03:12)
[2020-09-08] MEDS ORDERED: ONDANSETRON 4 MG OD TAB SL PRN (03:12)
[2020-09-08] MEDS ORDERED: LORazepam 1 MG/2 ML VIAL IV PRN (03:12)
[2020-09-08] MEDS ORDERED: LOPERAMIDE HCL 2 MG CAP PO PRN (03:12)
[2020-09-08] MEDS ORDERED: LORazepam 0.5 MG TAB PO PRN (03:12)
[2020-09-08] MEDS ORDERED: ACETAMINOPHEN 325 MG TAB PO PRN (03:12)
[2020-09-08 05:15] VITALS: BP 111/73; TEMP 97.3
--- NOTE | 2020-09-08 06:44 | XRay Report ---
XR chest 1V portable HISTORY: 75 years-old Male chest pain, sob acute atypical chest pain with shortness of breath COMPARISON: Chest radiograph 08/13/2020, CT abdomen and pelvis 08/20/2020 TECHNIQUE: Portable AP view of the chest FINDINGS: The cardiomediastinal and hilar silhouettes are within normal limits. No pneumothorax, pleural effusi on or overt pulmonary edema. Nodular opacity of the left midlung is likely secondary to spurring of t he anterior left first rib. Patchy medial right lung base opacities are new from prior. Surgical clip s project over the right axilla. Bones appear grossly intact. IMPRESSION: Medial right lung base airspace opacities are suspicious for pneumonia. Follow-up recomme nded. ACT 112: Negative or not required by law. The above report was generated using voice recognition software. It may contain grammatical, syntax o r spelling errors. Electronically signed by: Willie Fernandez M.D. 09/08/2020 6:42 AM
[2020-09-08] MEDS: clonazePAM 0.5 MG TAB PO SCH (08:43)
[2020-09-08] MEDS ORDERED: GLUCAGON FOR INJ 1 MG VIAL SQ PRN (08:44)
[2020-09-08] MEDS ORDERED: GLUCOSE 40% GEL 15 GM TUBE PO PRN (08:44)
[2020-09-08] MEDS ORDERED: DEXTROSE 50% 50 ML SYRINGE IV PRN (08:44)
[2020-09-08] MEDS ORDERED: GLUCOSE 10 TABS/TUBE PO PRN (08:44)
[2020-09-08] MEDS ORDERED: CARBOHYDRATES FOR HYPOGLYCEMIA PO PRN (08:44)
[2020-09-08] MEDS: MoRPHine SULFATE 4 MG/ML 1 ML CARP\\VIAL IV PRN ×2 (08:48→15:34)
[2020-09-08] MEDS ORDERED: PHARMACY GLYCEMIC MGMT CONSULT PRN (08:55)
[2020-09-08] MEDS ORDERED: NON-FORMULARY MEDICATION (Saliva Stimulant Comb. No.3 [Biotene Moisturizing Mouth] Spray,N MUCOUS MEMBRANE SCH (09:00)
[2020-09-08] MEDS: INSULIN ASPART 100 UNITS/ML 3 ML PEN SC SCH ×4 (09:58→21:20)
--- NOTE | 2020-09-08 10:12 | Electrocardiogram Report ---
Test Reason : Blood Pressure : / mmHG Vent. Rate : 133 BPM Atrial Rate : 133 BPM P-R Int : 138 ms QRS Dur : 100 ms QT Int : 298 ms P-R-T Axes : 004 -01 095 degrees QTc Int : 443 ms Sinus tachycardia Abnormal ECG When compared with ECG of 13-AUG-2020 00:13, Fusion complexes are no longer Present ST now depressed in Lateral leads Confirmed by Oleg Maria ([id number]) on 09/08/2020 10:12:15 AM Referred By: REFERRED SELF Confirmed By:Oleg Maria
[2020-09-08] MEDS ORDERED: LANTUS PER UNIT CHARGE SQ ONE (10:15)
--- NOTE | 2020-09-08 10:54 | Palliative Care Consultation ---
Date of Consultation September 08, 2020 Assessment & Plan (1) Palliative care encounter: This is a 75 year old who is a resident at [facility] and presented to the [facility] with overall poor PO intake and deconditioning. This gentleman has a PMH that includes malignant melanoma with brain metastasis s/p radiation treatment. Additionally he has a PMH that includes pAF, CAD, HTN, hypothyroidism, DVT s/p IVC filter placement, anemia of chronic disease, and thrombocytopenia. He was recently hospitalized last month for dehydration, and IVC filter placement. He started to experience cough symptoms while at [facility] and he was started on abx as an outpatient. There was lengthy discussion regarding the possibility of him transitioning to hospice while he was there; however that formal consultation was not placed. Palliative Care was consulted to discuss goals of care. I was able to meet with the patient and he was speaking to his brother Taran on the phone. I talked with both of them at length regarding hospice and returning to [facility]. The patient indicated he thought he could return to his brothers home with hospice, but Taran said that he was unable to care for him and they do not have the financial means to provide 24/7 care for him. We did complete a POLST form together indicating DNR/DNI, BONUS CLERK, trial abx, no artificial nutrition/hydration. I discussed the above with case management who will move forward with attempting disposition to have the patient return to [facility] with Hospice. Should [facility] not accept the patient back, would need to readdress and move forward with patient transitioning to a SNF with either some gently rehab and transition to Hospice or go to a SNF with hospice. No symptom management needs at this time. (2) Metastatic melanoma: (3) Acute dehydration: (4) Generalized weakness: (5) Acute respiratory failure with hypoxemia: History of Present Illness Reason for Consultation: goals of care Requesting Physician: Dr. Costa Attending Physician: Gayle Lee, History of Present Illness This is a 75 year old who is a resident at [facility] and presented to the [facility] with overall poor PO intake and deconditioning. This gentleman has a PMH that includes malignant melanoma with brain metastasis s/p radiation treatment. Additionally he has a PMH that includes pAF, CAD, HTN, hypothyroidism, DVT s/p IVC filter placement, anemia of chronic disease, and thrombocytopenia. He was recently hospitalized last month for dehydration, and IVC filter placement. He started to experience cough symptoms while at [facility] and he was started on abx as an outpatient. There was lengthy discussion regarding the possibility of him transitioning to hospice while he was there; however that formal consultation was not placed. Palliative Care was consulted to discuss goals of care. please see A/P for further details. Thank you kindly for involving the palliative care team with this individual. Allergies Allergy/AdvReac Type Severity Reaction Status Date / Time No Known Allergies Allergy Unknown Verified 09/07/20 21:46 Home Medications Home Medications Medication Instructions Recorded Confirmed Type nitroglycerin [Nitrostat] 0.4 mg UT UD PRN #0 06/18/08 09/07/20 History amiodarone 200 mg PO DAILY #0 10/02/16 09/07/20 History bupropion HCl [Wellbutrin XL] 300 mg PO DAILY #0 10/02/16 09/07/20 History propranolol 60 mg PO BID #0 10/02/16 09/07/20 History fluticasone propionate 50 2 spray INTRANASAL DAILY PRN 06/26/20 09/07/20 History mcg/actuation nasal spray,suspension loperamide 2 mg capsule 2 mg PO BID PRN cap 06/26/20 09/07/20 History multivitamin 1 tab PO DAILY 06/26/20 09/07/20 History pantoprazole 40 mg tablet,delayed 40 mg PO DAILY 06/26/20 09/07/20 History release quetiapine 25 mg tablet 50 mg PO HS tab 06/26/20 09/07/20 History dexamethasone 4 mg tablet 4 mg PO BID 08/04/20 09/07/20 History clonazepam 0.5 mg PO QAM 08/23/20 09/07/20 History levothyroxine [Synthroid] 75 mcg PO DAILYBB #30 tab 08/23/20 09/07/20 Rx tramadol 50 mg PO Q6H PRN #20 tab 08/23/20 09/07/20 Rx Med Pass Supplement 120 ml PO TID 09/07/20 09/07/20 History Silicone Foam Adhesive Dressin 1 applic TOPICAL .Q5DAYS 09/07/20 09/07/20 History acetaminophen [Tylenol] 650 mg PO Q4 PRN 09/07/20 09/07/20 History benzonatate [Tessalon Perles] 100 mg PO TID 09/07/20 09/07/20 History clonazepam 1 mg PO HS 09/07/20 09/07/20 History codeine-guaifenesin [Robitussin 5 ml PO Q4H PRN 09/07/20 09/07/20 History A-C] desvenlafaxine succinate 50 mg PO DAILY 09/07/20 09/07/20 History foam bandage [Allevyn Adhesive 09/07/20 09/07/20 History Dressing] ipratropium-albuterol 3 ml INHALATION QID 09/07/20 09/07/20 History saliva stimulant comb. no.3 1 spray MUCOUS MEMBRANE Q4 PRN 09/07/20 09/07/20 History [Biotene Moisturizing Mouth] saliva stimulant comb. no.3 1 spray MUCOUS MEMBRANE QID 09/07/20 09/07/20 Hi story [Biotene Moisturizing Mouth] tamsulosin [Flomax] 0.4 mg PO HS 09/07/20 09/07/20 History Patient History Medical History Afib Depression Gastric ulcer Heart disease History of left heart catheterization (LHC) Hypertension Hypothyroidism Incarcerated right inguinal hernia LVH (left ventricular hypertrophy) MDD (major depressive disorder) Osteoarthritis Palliative care encounter Surgical History H/O colonoscopy 2014 H/O hernia repair Late History of lithotripsy Late History of lymph node dissection of axilla 06/17/2017 - Left Axilla Non [place] Node Packet - 09/22 nodes positive for malignant melanoma 08/17/2017 - SLN Dissection History of radical excision of skin lesion 04/27/2020 - Right Upper Back - Malignant Melanoma History of surgery 1979 - Benign tumor removed from back of right knee Family History Mother , Passed age 92 natural causes Skin cancer Father , Passed age 68 of H&N Cancer Prostate cancer, Onset Age: 58 Prostatectomy Brother No problems noted. Other Has no children Social History Smoking Status: Former smoker Second Hand Exposure: No; Do You Dip or Chew Tobacco: No; Tobacco Cessation Education Requested by Patient: No Hx Alcohol Use: No Hx Substance Use: No Preferred Language: Argentine Communication Ability: Unable Visual Impairment: Limited Hearing Ability: Normal Reworker Required: No Beliefs That Will Affect Care: None marital status: Single Current Living Situation: Personal Care Facility Current Living Situation Comment: Amy Traylor current occupational status: retired current occupation: retired from [employer] at [employer] How many Children do You have: 0 Feels Safe at Home: Yes Safety Concerns: Feels Safe At This Time Childhood Exposure to Second-Hand Smoke: Yes (Father ) caffeine: No during the past year weight has: remained stable Dental Care, Regularly: Yes Review of Systems Review of Systems: [place] Symptom Assessment System Revised (ESAS-r) Tiredness: 2/3 Lack of Appetite: 1/3 Depression: 1/3 Physical Exam Constitutional: + ill appearing, + frail appearing and cooperative Respiratory: + cough and symmetric chest movement; no labored breathing Auscultation: + rhonchi Cardiovascular: Rate/Rhythm: regular rhythm and + tachycardic Heart Sounds: normal S1 and normal S2 Vessels: dorsalis pedis pulses present and radial pulses present Extremities: normal capillary refill, + pedal edema and + edema Gastrointestinal (Abdomen): normal bowel sounds, soft, nontender, no hepatosplenomegaly Skin: + lesion and + ecchymosis Psychiatric: Orientation: alert, oriented to person, oriented to place, oriented to time and cooperative Insight: + limited insight Judgement: + limited judgement Genitourinary: voided in urinal Results & Data ([facility]) Vital Signs (Past 12 Hours) Vital Signs Temp Pulse Resp BP Pulse Ox 09/08/20 03:12 36.3 C L 123 H 18 111/73 91 09/08/20 02:36 38.3 C H 09/08/20 02:00 123 H 22 102/67 91 09/08/20 01:30 127 H 23 84/65 L 92 09/08/20 00:30 123 H 21 96/69 L 93 09/07/20 23:30 119 H 20 82/62 L 94 09/07/20 23:13 120 H 21 86/61 L 94 09/07/20 23:00 119 H 21 102/65 91 PG Care Time/CCT Total # of Minutes Spent Total Time Spent with Patient: Total time spent is greater than 50% in coordination of care (as documented) at patient's floor/unit and/or counseling patient: 70 Coding Level of Care Code 11159 Inpt Consult Level 3 Diagnoses Palliative care encounter Z51.5 Metastatic melanoma C79.9 Acute dehydration E86.0 Generalized weakness R53.1 Acute respiratory failure with hypoxemia J96.01 Time Spent (min) 70 Time Spent Midlevel Total time spent 70 minutes with >50% of that time spent assessing the patient, discussing goals of care with the patient and POA, along with collaborating with IDT
--- NOTE | 2020-09-08 11:35 | Pharmacy Report ---
Pharmacy Glycemic Short Note 2 - Date of Service September 08, 2020 - Glycemic Short BSG Results (Last 24 hours): 09/07/20 09/08/20 09/08/20 18:15 00:03 00:04 Glucose 353 H* POC Glucose 251 H 267 H 09/08/20 09/08/20 02:28 09:13 Glucose POC Glucose 194 H 250 H OUTPATIENT ANTIDIABETIC REGIMEN: * n/a ASSESSMENT: * 75 year old who is resident at [facility]. Presenting to hospital with poor PO intake. PMHx significant for malignant melanoma with brain metastasis s/p radiation tx. Also with hypothyroidism, anemia, CAD, htn. Palliative care consulted * No diabetic medications listed on home list. * BSGs on admission elevated in 300s - receive IV insulin. (also with hyperkalemia) BSG this AM trending down to 194 mg/dL - plan to star novolog/lantus * BSG on recheck this AM 250 mg/dL. Hyperglycemia likely related to steroids given last evening PLAN FOR INPATIENT GLYCEMIC CONTROL: * Hold outpatient oral diabetes medications * Basal insulin * Lantus 15 x 1 * Bolus insulin * NovoLog per scale ACHS or Q6hrs while NPO * Goal Range: Low 110 mg/dL - High 140 mg/dL * Correction Factor: 25 mg/dL/unit * Nutritional / Prandial insulin per carb ratio of 1 unit per 8 grams CHO consumed
[2020-09-08] MEDS ORDERED: FLUTICASONE PROPIONATE NA SPR 16 GM BTL NAE PRN (15:53)
[2020-09-08] MEDS ORDERED: traMADol HCL 50 MG TABLET PO PRN (15:53)
[2020-09-08] MEDS ORDERED: ACETAMINOPHEN 500 MG TAB PO ONE (16:14)
[2020-09-08] MEDS ORDERED: traMADol HCL 50 MG TABLET PO STA (16:14)
--- NOTE | 2020-09-08 16:16 | Hospitalist Progress Note ---
Date of Service September 08, 2020 Assessment & Plan (1) Acute respiratory failure with hypoxemia: (2) Pneumonia: (3) NIRU (acute kidney injury): (4) Acute dehydration: (5) T2DM (type 2 diabetes mellitus): (6) Deep vein thrombosis (DVT) of right lower extremity: (7) Metastatic melanoma: (8) Generalized weakness: (9) Comfort measures only status: The patient met with Palliative provider today and Hospice care will be set up on discharge to [facility] tomorrow. No abx or aggressive attention paid to hypoxia; continue supplemental oxygen for comfort. Focus of treatment if pain control and anxiety management. Brother was involved in the discussion today and is aware of the plans. Gayle [facility] and Anticipated Discharge Date Admission Date: September 08, 2020 Subjective generalized weakness comfort care measures denies SOB but requiring supplemental oxygen some pain in his back where there is a lump of cancer Review of Systems Review of Systems: All systems reviewed & are unremarkable except as noted in Subjective Physical Exam Physical Exam: CONSTITUTIONAL: WNWD, vitals as above, generally appears fatigued and weak EYES: normal conjunctivae, no scleral icterus ENT: external ear and nose normal, oropharynx clear, MMM RESPIRATORY: clear to auscultation bilaterally, no crackles, rales or wheezes, normal respiratory effort CARDIOVASCULAR: tachy rate and rhythm, S1 and 2 heard without murmurs, gallops or rubs, no JVD, 2+ pitting edema in bilateral lower extremities to the knees. GASTROINTESTINAL: soft, nontender, nondistended MUSCULOSKELETAL: generalized weakness. SKIN: warm and dry NEUROLOGIC: CN 2-12 grossly intact, normal cognition, normal speech, no tremor PSYCHIATRIC: alert and cooperative but sleepy. Answers questions appropriat juaquin. (1) Pneumonia Laterality: right Lung location: lower lobe of lung Pneumonia type: due to unspecified organism Qualified Code(s): J18.9 - Pneumonia, unspecified organism
[2020-09-08] MEDS: AMIODARONE 200 MG TAB PO SCH (16:24)
[2020-09-08] MEDS: buPROPion XL 300 MG TABCR PO SCH (16:25)
[2020-09-08] MEDS: dexAMETHasone 4 MG TAB PO SCH (18:22)
[2020-09-08] MEDS ORDERED: clonazePAM 1 MG TAB PO SCH (21:00)
[2020-09-08] MEDS ORDERED: QUEtiapine FUMARATE 25 MG TABLET PO SCH (21:00)
[2020-09-08] MEDS ORDERED: TAMSULOSIN HCL 0.4 MG CAP PO SCH (21:00)
[2020-09-08] MEDS: PROPRANOLOL HCL 20 MG TAB PO SCH (21:22)
[2020-09-09] MEDS ORDERED: LEVOTHYROXINE SODIUM 75 MCG TABLET PO SCH (06:30)
[2020-09-09] MEDS ORDERED: LANTUS PER UNIT CHARGE SQ ONE (09:00)
[2020-09-09] MEDS ORDERED: PANTOprazole 40 MG TAB PO SCH (09:00)
[2020-09-09] MEDS: dexAMETHasone 4 MG TAB PO SCH (09:31)
[2020-09-09] MEDS: AMIODARONE 200 MG TAB PO SCH (09:31)
[2020-09-09] MEDS: INSULIN ASPART 100 UNITS/ML 3 ML PEN SC SCH (09:32)
[2020-09-09] MEDS: clonazePAM 0.5 MG TAB PO SCH (09:34)
[2020-09-09] MEDS: buPROPion XL 300 MG TABCR PO SCH (09:36)
[2020-09-09] MEDS: PROPRANOLOL HCL 20 MG TAB PO SCH (09:36)
--- NOTE | 2020-09-09 10:32 | Discharge Summary ---
Date of Service September 09, 2020 Admission HPI Per Admitting Provider History obtained from patient and records. Medical history significant for recurrent metastatic melanoma status post surgery, brain mets status post radiation ongoing steroid therapy, PAF, nonobstructive CAD as per records, hypertension, hypothyroidism, mood disorder, recent DVT status post IVC filter placement, chronic anemia (baseline hemoglobin 11-13), chronic thrombocytopenia, past tobacco abuse. Recent confinement last month for dehydration, right lower extremity status post IVC filter placement. Anticoagulation precluded by brain mets from malignant melanoma, hematuria symptoms, and thrombocytopenia. Palliative care consulted during confinement. Patient discharged to [facility] for rehab. Patient frustrated with decreased mobility at [facility]. Appetite not too good. One week history of cough symptoms at [facility]. Levaquin started for possible pneumonia. Improving cough as per outpatient documentation. As per outpatient note, ongoing discussions regarding placement back on hospice for end-of-life care. Patient wants to go back to his apartment to be with his brother but realizes that elderly brother might not be able to provide enough care for patient at home. [facility] provider trying to convince patient to stay at facility for hospice. Yesterday, patient complained of achy left-sided chest pain with shortness of breath. Usual leg swelling. No unusual cough symptoms as per patient. Patient noted to be hypoxemic and tachycardic at [facility]. Initial SBP at the ER 80s to 90s. Patient received IV fluids and Levaquin at the ER. Medical History as above Surgical History : Lymph node biopsy, urologic procedures, leg bone lesion removal, hernia repair, skin cancer surgery, IVC filter placement Family History : BPH Personal/Social history : Past tobacco abuse, no EtOH intake, retired [employer] employee Admission Exam Per Admitting Provider GENERAL: uncomfortable, obese, no respiratory distress SKIN: Pallor, warm HEENT: Alopecia, pale palpebral conjunctivae, no ptosis, dry buccal mucosa, nasal cannula in place NECK : Supple, short neck, no tenderness CHEST : Decreased breath sounds, no tenderness HEART : Tachycardic, no obvious murmurs ABDOMEN: Some distention, nontender EXTREMITIES : Minimal LE swelling, no overt tenderness NEUROLOGIC : Coherent, no facial asymmetry, MMTs BUE 4/5, BLE 2/5 Principal Diagnosis Metastatic melanoma with brain metastases Acute respiratory failure with hypoxia Steroid induced diabetes mellitus Generalized weakness Comfort care measures Discharge Exam CONSTITUTIONAL: WNWD, vitals as above, generally appears fatigued and weak EYES: normal conjunctivae, no scleral icterus ENT: external ear and nose normal, oropharynx clear, MMM RESPIRATORY: clear to auscultation bilaterally, no crackles, rales or wheezes, normal respiratory effort CARDIOVASCULAR: tachy rate and rhythm, S1 and 2 heard without murmurs, gallops or rubs, no JVD, 2+ pitting edema in bilateral lower extremities to the knees. GASTROINTESTINAL: soft, nontender, nondistended MUSCULOSKELETAL: generalized weakness. SKIN: warm and dry NEUROLOGIC: CN 2-12 grossly intact, normal cognition, normal speech, no tremor PSYCHIATRIC: alert and cooperative but sleepy. Answers questions appropriately. Discharge Data Allergies Allergy/AdvReac Type Severity Reaction Status Date / Time No Known Allergies Allergy Unknown Verified 09/07/20 21:46 Consultations 09/07/20 23:21 ED Decision to Admit Stat 09/08/20 03:12 Consult Case Management - Discharge Planning Routine Consult Palliative Care Routine Ordered Studies [place], [phone] XRay Report Patient: AUSTIN DOTSONAdmit Date: 09/08/20MR#: [id number] [facility] DRAcct ID:[id number]: [address] Zip: [place], [place] [address]Xef: 75Location: 3WSex: MRoom/Bed: [address] Phy: Gayle Lee, DODiagnosis: METASTATIC MELANOMA, COMFORT MEASURESPri Phy: Robert Palm MDService Date: 09/07/20Fam Phy:Interpreting Phy: Emil [facility] hospitalAd[facility] Phy: Parth Roach MD Ordering Phy: Abe Curtis MD XR chest 1V portable HISTORY: 75 years-old Male chest pain, sob acute atypical chest pain with shortness of breath COMPARISON: Chest radiograph 08/13/2020, CT abdomen and pelvis 08/20/2020 TECHNIQUE: Portable AP view of the chest FINDINGS: The cardiomediastinal and hilar silhouettes are within normal limits. No pneumothorax, pleural effusion or overt pulmonary edema. Nodular opacity of the left midlung is likely secondary to spurring of the anterior left first rib. Patchy medial right lung base opacities are new from prior. Surgical clips project over the right axilla. Bones appear grossly intact. IMPRESSION: Medial right lung base airspace opacities are suspicious for pneumonia. Follow-up recommended. ACT 112: Negative or not required by law. The above report was generated using voice recognition software. It may contain grammatical, syntax or spelling errors. Electronically signed by: Willie Fernandez M.D. 09/08/2020 6:42 AM Dictated: 09/08/20640Transcribed: 09/08/20640 Hospital Course (1) Comfort measures only status: (2) Pneumonia: (3) Acute respiratory failure with hypoxemia: (4) NIRU (acute kidney injury): (5) Acute dehydration: (6) T2DM (type 2 diabetes mellitus): (7) Deep vein thrombosis (DVT) of right lower extremity: (8) Metastatic melanoma: (9) Generalized weakness: The patient is a 75-year-old man with metastatic melanoma with known brain metastasis who was recently hospitalized. He presented to the hospital again with shortness of breath and was found to have pneumonia. He has a significant oxygen requirement and is on supplemental oxygen. Shortly after admission he conveyed to the provider that he did not wish for any further treatment and wanted to be comfort care measures status. Palliative was consulted and confirmed this the following day. Although he received Levaquin in the ER he did not receive any further antibiotics for his pneumonia. At time of discharge he was hypoxic on 4 L nasal cannula but was comfortable and pain was controlled with Tylenol and tramadol. He will be transition back to [facility] for continued hospice care. Total Time Total Time Spent Total Time Spent (In Minutes): 60 Total Time Includes: Examination of the Patient, Discharge Planning, Medication Reconciliation and Communication With Other Providers Discharge Plan Discharge Items Patient Disposition: Hospice - Medical Facility Reason For Visit: METASTATIC MELANOMA, COMFORT MEASURES Discharge Diagnosis: Metastatic melanoma with brain metastases Acute respiratory failure with hypoxia Steroid induced diabetes mellitus Generalized weakness Comfort care measures Activity: Resume your previous activity Non-emergency contact: Primary Care Provider Call non-emergency contact if: you have any medication questions, your symptoms worsen, your pain is not controlled, your pain is worsening, your pain is unusual for you, your pain is concerning for you, you have a fever, your wound has increased redness, your wound has increased drainage and your wound pain has increased Follow-up/Referrals: Robert Palm MD [Primary Care Provider] - Diet: Regular Addtl Attending Provider Instructions: Please take all medications as instructed on discharge list below. These may be adjusted to reduce pill burden as needed. Cont palliative care efforts with pain control, anxiety management and oxygen as needed for comfort. It was a pleasure taking care of you! Please call if you have any questions or problems. You can reach a [facility] hospitalist on duty at [facility] 24 hours a day by calling [phone]. Take care of yourself. Gayle Lee, [facility] Hospitalist Pending Studies at Discharge: No Stand-Alone Forms: My [facility] Skilled Items Patient informed of condition?: Yes DNR: Yes Discharge Level of Care: Other Communicable Disease: No Discharge Prognosis: Deteriorating Lines: None Urinary Catheter: No Medications and DC Order Prescriptions: Continued pantoprazole [Protonix] 40 mg tablet,delayed release (DR/EC) 40 mg PO DAILY RF: 0 quetiapine [Seroquel] 25 mg tablet 50 mg PO HS RF: 0 fluticasone propionate [Flonase Allergy Relief] 50 mcg/actuation spray,suspension 2 spray intranasal DAILY PRN (Reason: dryness) RF: 0 multivitamin Tablet 1 tab PO DAILY RF: 0 loperamide [Imodium A-D] 2 mg capsule 2 mg PO BID PRN (Reason: Diarrhea) RF: 0 dexamethasone [Decadron] 4 mg tablet 4 mg PO BID RF: 0 nitroglycerin [Nitrostat] 0.4 mg Tablet, Sublingual 0.4 mg UT UD PRN (Reason: Chest Pain) Qty: 0 RF: 0 propranolol 60 mg Tablet 60 mg PO BID Qty: 0 RF: 0 amiodarone 200 mg Tablet 200 mg PO DAILY Qty: 0 RF: 0 bupropion HCl [Wellbutrin XL] 300 mg Tablet Extended Release 24 Hr 300 mg PO DAILY Qty: 0 RF: 0 acetaminophen [Tylenol] 325 mg Tablet 650 mg PO Q4 PRN (Reason: Fever Or Pain) RF: 0 ipratropium-albuterol 0.5 mg-3 mg(2.5 mg base)/3 mL Solution For Nebulization 3 ml INHALATION QID RF: 0 clonazepam 1 mg Tablet 1 mg PO HS RF: 0 tamsulosin [Flomax] 0.4 mg capsule 0.4 mg PO HS RF: 0 benzonatate [Tessalon Perles] 100 mg Capsule 100 mg PO TID RF: 0 Robitussin A-C 10-100 mg/5 mL Syrup 5 ml PO Q4H PRN (Reason: Cough) RF: 0 (DME) Allevyn Adhesive Dressing 3 X 3 " Bandage TOPICAL RF: 0 desvenlafaxine succinate 50 mg Tablet Extended Release 24 Hr 50 mg PO DAILY RF: 0 Biotene Moisturizing Mouth [place],Non-Aerosol 1 spray MUCOUS MEMBRANE QID RF: 0 Biotene Moisturizing Mouth [place],Non-Aerosol 1 spray MUCOUS MEMBRANE Q4 PRN (Reason: Dry Mouth) RF: 0 Med Pass Supplement 120 ml PO TID RF: 0 Silicone Foam Adhesive Dressin 1 applic topical .Q5DAYS RF: 0 levothyroxine [Synthroid] 75 mcg Tablet 75 mcg PO DAILYBB Qty: 30 RF: 1 clonazepam 0.5 mg tablet 0.5 mg PO QAM RF: 0 tramadol 50 mg tablet 50 mg PO Q6H PRN (Reason: Pain) Qty: 20 RF: 0 Discharge Orders: Discharge Order (Routine); Ordered 09/09/20 Ordered By: Gayle Lee Admission Data Admit Date/Time: 09/08/20 02:00 Attending Provider: Gayle Lee Admit Provider: Parth Roach Primary Care Provider: Robert Palm Other Providers: Parth Roach ; Leonila Chao ; Virginia Villalta ; [facility] Other Interventions: Discharge Summary Assessment (RN) Last Done: 09/09/20 10:56
[2020-09-09 11:25] VITALS: O2SAT 88
== END 2020-09-09 12:29 | disposition hospice, inpatient (51) ==
LOC: ED 19:43 → 3W 19:43